=== PATIENT | male | born 1940 ===

== ENCOUNTER 2020-05-03 09:42 | Emergency (ER) | payer MEDICARE, SELFPAY ==
[2020-05-03 09:50] VITALS: BP 183/60; PULSE 69; RESP 22; TEMP 36.6; O2SAT 96; BMI 30.7
[2020-05-03 10:00] VITALS: BP 160/72; PULSE 69; RESP 14; TEMP 36.6; O2SAT 98
--- NOTE | 2020-05-03 10:00 | ECG_ITS ---
Test Reason : CHEST PAIN Blood Pressure : / mmHG Vent. Rate : 071 BPM Atrial Rate : 071 BPM P-R Int : 180 ms QRS Dur : 094 ms QT Int : 374 ms P-R-T Axes : 000 -33 006 degrees QTc Int : 406 ms Normal sinus rhythm with 1st degree A-V block Left axis deviation Nonspecific ST abnormality RSR' or QR pattern in V1 suggests right ventricular conduction delay Abnormal ECG When compared with ECG of 26-NOV-2016 14:24, Vent. rate has increased BY [address] now depressed in Anterior leads Referred By: Christy Ramos Electronically Signed By:MELIDA FOSTER MD
--- NOTE | 2020-05-03 10:00 | XR_ITS ---
EXAMINATION: XR CHEST CLINICAL INFORMATION: Chest pain COMPARISON: Chest radiographs 08/10/2017, 10/04/2006 TECHNIQUE: Portable upright AP view of the chest was obtained. FINDINGS: There is no pneumothorax, pleural reaction, or effusion. The lungs are clear and there is no airspace consolidation or definite groundglass opacity. There is a punctate calcified granuloma periphery left mid zone similar to prior exam. The heart is within normal size. The hilar and mediastinal contours and bony structures are stable. XR/XR chest 1V IMPRESSION: Unremarkable examination.
--- NOTE | 2020-05-03 10:00 | ED.CHESTPAIN ---
HPI - Chest Pain General Chief Complaint: Chest Pain Stated Complaint: chest pain Time Seen by Provider: 05/03/20 09:54 History of Present Illness HPI narrative: Patient is a 79-year-old male with a history of hypertension, hypercholesterolemia. Ex-smoker quit about 5 years ago. Presents today with having chest pain that is 1-2 second it is sharp. It comes on when he is watching TV. There is no radiation. There is no specific trigger. Patient claims today actually he did not have any pain. He did have pain for the last 4 days on and off. No coughing or congestion or upper respiratory symptoms no diaphoresis. Patient is from home. No risk stratification done in the past. No history of blood clots. Patient denies any shortness of breath or diaphoresis associated with the chest pain. Related Data Allergies Allergy/AdvReac Type Severity Reaction Status Date / Time shrimp Allergy Intermediate SWELLING Unverified 02/22/20 15:49 shellfish Allergy Unknown hives Uncoded 01/04/20 00:00 Review of Systems Review of Systems: Constitutional: No Weight loss, No Fever, No Chills, No Night Sweats, No Fatigue, No Malaise ENT/Mouth: No Hearing loss, No Ear Pain, No Nasal Congestion, No Sinus Pain, No Hoarseness, No sore throat, No Rhinorrhea, No Swallowing Difficulty Eyes: No Eye Pain, No Swelling, No Redness, No Foreign Body, No Discharge, No Vision Changes Cardiovascular: Positive Chest Pain, No SOB, No Dyspnea on Exertion, No Orthopnea, No Edema, No Palpitations Respiratory: No Cough, No Sputum, No Wheezing, No Smoke Exposure, No Dyspnea Gastrointestinal: No Nausea, No Vomiting, No Diarrhea, No Constipation, No abdominal Pain, No Hematochezia, No Melena Genitourinary: no irregular bleeding, No Dysuria, No Urinary Frequency, No Hematuria, No Urinary Incontinence, No Urgency, No Flank Pain, No Urinary Flow Changes, No Hesitancy Musculoskeletal: No joint pain, No Myalgias, No Joint Swelling Skin: No Skin Lesions, No rash Neuro: No Weakness, No Numbness, No Paresthesias, No Loss of Consciousness, No Dizziness, No Headache Psych: No Anxiety/Panic, No Depression, No SI/HI/AH/VH, No Social Issues, Heme/Lymph: No Bruising, No Bleeding,No Lymphadenopathy Endocrine: No Polyuria, No Polydipsia, No Temperature Intolerance [facility] Social History Social History Advance Directives: No Advance Directives Information Provided: Yes Physical Exam Vital Signs: Vital Signs: Last Vital Signs Temp 97.8 F 05/03/20 09:50 Pulse 69 05/03/20 09:50 Resp 22 H 05/03/20 09:50 BP 183/60 H 05/03/20 09:50 Pulse Ox 96 05/03/20 09:50 Body Mass Index 30.7 Appearance: Alert. Oriented X3. No acute distress. Eyes: Pupils equal, round and reactive to light. ENT: Pharynx normal. Neck: Normal inspection. Neck supple. No lymph nodes noted. No crepitus CVS: Normal heart rate and rhythm. Pulses normal. Normal S1 and S2 Respiratory: No respiratory distress. Breath sounds normal. No Wheezing. No rales Abdomen: Soft and nontender. No rigidity. No distention. good BS x4 Skin: Skin warm and dry. Normal skin color. Normal skin turgor. Extremities: No lower extremity edema. Neurovascular intact to all extremities. No Lacerations. No Rash Neuro: Oriented X 3. No motor deficit. No sensory deficit. Moving all extermities. No slurred speech MDM - Chest Pain MDM Narrative Medical decision making narrative: Patient's chest pain atypical in nature 1-2 seconds. Cardiac enzymes negative. Chest x-ray showed no focal infiltrate no pneumonia no pneumothorax. Will discharge patient home. Close follow-up on an outpatient basis. In stable condition. Patient pain atypical. Cardiac enzymes negative. EKG unchanged. A few risk factor. Patient's age is 79 heart score is less than 3. Lab Data Result diagrams: 05/03/20 10:18 05/03/20 10:18 Labs: Lab Results 05/03/20 05/03/20 05/03/20 Range/Units 10:18 10:18 10:18 WBC 5.7 (4.8-10.8) X10*3/uL RBC 3.69 L (4.60-5.80) X10*6/uL Hgb 12.0 L (14.0-18.0) g/dl Hct 36.0 L (42-52) % MCV 97.6 (80-98) fL MCH 32.5 (27.0-33.0) pg MCHC 33.3 (31.0-36.0) g/dl RDW 12.8 (11.0-16.0) % Plt Count 197 (160-400) X10*3/uL MPV 9.9 (9.4-12.4) fL Immature Gran % (Auto) 0.2 (0.0-0.4) % Neut % (Auto) 61.2 (45-73) % Lymph % (Auto) 24.1 (20-40) % [place] % (Auto) 11.2 H (2-11) % Eos % (Auto) 2.6 (0-4) % Baso % (Auto) 0.7 (0-2) % Lymph # (Auto) 1.4 (1.2-4.9) X10*3/uL [place] # (Auto) 0.6 (0.1-1.2) X10*3/uL Eos # (Auto) 0.2 (0.0-0.4) X10*3/uL Baso # (Auto) 0.0 (0.0-0.2) X10*3/uL Abs Immat Gran (auto) 0.01 (0.00-0.03) X10*3/uL Absolute Neuts (auto) 3.5 (2.0-8.3) X10*3/uL Absolute Nucleated RBC 0.000 (0.0-0.012) X10*3/uL Nucleated RBC % (auto) 0.0 (0.0-0.2) /100WBC Hold Blue Top SEE NOTE Sodium 137 (135-145) mmol/L Potassium 3.9 (3.3-5.1) mmol/l Chloride 106 (96-108) mmol/L Carbon Dioxide 22 (22-29) mmol/L Anion Gap 13 (12-20) BUN 25 H (9-16) mg/dL Creatinine 1.52 H (0.5-1.4) mg/dL Estim Creat Clear Calc 41.9 Estimated GFR 44 Random Glucose 138 H (60-115) mg/dL Calcium 8.7 (8.4-10.2) mg/dL Troponin I High Sens (<3.5-35.0) ng/L 05/03/ Range/Units 10:18 WBC (4.8-10.8) X10*3/uL RBC (4.60-5.80) X10*6/uL Hgb (14.0-18.0) g/dl Hct (42-52) % MCV (80-98) fL MCH (27.0-33.0) pg MCHC (31.0-36.0) g/dl RDW (11.0-16.0) % Plt Count (160-400) X10*3/uL MPV (9.4-12.4) fL Immature Gran % (Auto) (0.0-0.4) % Neut % (Auto) (45-73) % Lymph % (Auto) (20-40) % [place] % (Auto) (2-11) % Eos % (Auto) (0-4) % Baso % (Auto) (0-2) % Lymph # (Auto) (1.2-4.9) X10*3/uL [place] # (Auto) (0.1-1.2) X10*3/uL Eos # (Auto) (0.0-0.4) X10*3/uL Baso # (Auto) (0.0-0.2) X10*3/uL Abs Immat Gran (auto) (0.00-0.03) X10*3/uL Absolute Neuts (auto) (2.0-8.3) X10*3/uL Absolute Nucleated RBC (0.0-0.012) X10*3/uL Nucleated RBC % (auto) (0.0-0.2) /100WBC Hold Blue Top Sodium (135-145) mmol/L Potassium (3.3-5.1) mmol/l Chloride (96-108) mmol/L Carbon Dioxide (22-29) mmol/L Anion Gap (12-20) BUN (9-16) mg/dL Creatinine (0.5-1.4) mg/dL Estim Creat Clear Calc Estimated GFR Random Glucose (60-115) mg/dL Calcium (8.4-10.2) mg/dL Troponin I High Sens 6.2 (<3.5-35.0) ng/L ECG Data ECG #1: Interpretation: Sinus heart rate of 70 MN QRS QT within normal limits is no acute ST segment elevation noted. Discharge Plan Discharge Clinical Impression: Chest pain Patient Disposition: Home, Self-Care Instructions: Chest Pain (ED) Referrals: Piedad Lamas NP [Primary Care Provider] - 2 days
[2020-05-03] MEDS: Aspirin 81 MG TAB.CHEW 324 MG PO (10:06)
[2020-05-03 10:28] LABS: Basophils Percent Auto 0.7 % (0-2); Eosinophils Absolute Auto 0.2 X10*3/uL (0.0-0.4); Eosinophils Percent Auto 2.6 % (0-4); Imm Gran Abs Auto 0.01 X10*3/uL (0.00-0.03); Imm Gran Pct Auto 0.2 % (0.0-0.4); Lymphocytes Absolute Auto 1.4 X10*3/uL (1.2-4.9); Lymphocytes Percent Auto 24.1 % (20-40); Mean Corpuscular HGB Conc 33.3 g/dl (31.0-36.0); Mean Corpuscular Hemoglobin 32.5 pg (27.0-33.0); Mean Corpuscular Volume 97.6 fL (80-98); Mean Platelet Volume 9.9 fL (9.4-12.4); Monocytes Absolute Auto 0.6 X10*3/uL (0.1-1.2); Monocytes Percent Auto 11.2 % (2-11); Neutrophils Absolute Auto 3.5 X10*3/uL (2.0-8.3); Neutrophils Percent Auto 61.2 % (45-73); Platelet Count 197 X10*3/uL (160-400); Red Blood Count 3.69 X10*6/uL (4.60-5.80); Red Cell Distribution Width 12.8 % (11.0-16.0); White Blood Count 5.7 X10*3/uL (4.8-10.8)
[2020-05-03 10:29] LABS: MANUAL DIFF FLAG NO
[2020-05-03 10:49] LABS: Anion Gap 13 (12-20); Blood Urea Nitrogen 25 mg/dL (9-16); Calcium 8.7 mg/dL (8.4-10.2); Carbon Dioxide 22 mmol/L (22-29); Chloride 106 mmol/L (96-108); Creatinine Clr Calc Pharmacy 41.9; Estimated Glomerular Filt Rate 44; Glucose Random 138 mg/dL (60-115); Potassium 3.9 mmol/l (3.3-5.1); Sodium 137 mmol/L (135-145)
[2020-05-03 11:00] LABS: Troponin-I High Sensitivity 6.2 ng/L (<3.5-35.0)
== END 2020-05-03 11:27 | disposition home or self-care (01) ==
PROVIDERS: Emergency Provider Emergency Medicine Emergency Medical Services; PCP Nurse Practitioner Family
DX: R07.9 Chest pain, unspecified (principal); I10 Essential (primary) hypertension; Z87.891 Personal history of nicotine dependence
CPT/HCPCS: 36415; 71045; 80048; 84484; 85025; 93005; 99284

== ENCOUNTER → 2020-05-27 12:22 | Outpatient (BNVA) | payer MEDICARE, SELFPAY | PROVIDERS: PCP Nurse Practitioner Family; Visit Provider Internal Medicine | DX: I48.92 Unspecified atrial flutter (principal); R07.2 Precordial pain; R00.2 Palpitations; Z79.899 Other long term (current) drug therapy | CPT/HCPCS: 93005; 99202 ==

== ENCOUNTER → 2020-06-19 13:01 | Outpatient (REF) | payer MEDICARE, SELFPAY ==
--- NOTE | 2020-06-19 13:04 | ECG_ITS ---
Hook-up date: 2020-06-19 13:53:00 Duration: 24:54:00 Test Indications: UNSPEC. ATRIAL FLUTTER Medications: 07862 QRS complexes 4 Ventricular ectopics which represent <1 % of total QRS comp. * Supraventricular ectopics which represent % of total QRS comp. * Paced QRS complexs which represent % of total QRS comp. VENTRICULAR ECTOPY 4 Isolated 0 Bigeminal Cycles 0 Couplets 0 Runs 0 Beats in Runs * Beats LONGEST at * BPM at :: -- * Beats FASTEST at * BPM at :: -- SUPRAVENTRICULAR ECTOPY * Isolated * Couplets * Runs * Beats in Runs * Beats LONGEST at * BPM at :: -- * Beats FASTEST at * BPM at :: -- HEART RATES 32 MIN at 06:01:39 2020-06-20 62 AVG 109 MAX at 16:18:16 2020-06-19 LONGEST RR 2.4880 secs at 05:37:38 2020-06-20 S-T LEVELS Channel 1 - 128 mm at 13:53:00 2020-06-19 - 128 mm at 13:53:00 2020-06-19 Channel 2 - 128 mm at 13:53:00 2020-06-19 - 128 mm at 13:53:00 2020-06-19 Channel 3 - 128 mm at 03:31:21 -- - 128 mm at 03:31:21 Underlying rhythm is atrial flutter; Average ventricular rate 62/min; range 32-109/min; About 35% of the time, ventricular rate <60/min; Chest pain noted in patient diary associated with underlying rhythm of atrial flutter. Referred By: Keily Green Overread By: KEILY GREEN
--- NOTE | 2020-06-19 13:04 | CA_ITS ---
Transthoracic Echocardiogram Patient (Last, First, Middle): Ras Pavon, Gender: Male Date of : 1940 Age: 79 Procedure Date: 06/19/2020 Procedure Type: Transthoracic Echocardiogram Location: OP Height: 167.64 cm Weight: 89.81 kg BSA: 1.99 m2 Heart Rate: bpm BP: 124 / 80 mmHg Food And Beverage Director: Referring MD: Richie Menezes MD Construction Quality Control Manager: Satnam Guevara MD Symptoms: I48.92 - Unspecified atrial flutter Study Quality: Fair ECG Rhythm: Atrial flutter Conclusions: - 1. Normal LV systolic function 2. Mild biatrial enlargement, right greater than left 3. Normal cardiac valvular Doppler 4. Normal RV systolic pressure 5. No pericardial effusion Findings Left Ventricle Normal left ventricular size, thickness, and systolic function. The visually estimated ejection fraction is between 55-60%. Diastolic function is indeterminate on the basis of available data. Right Ventricle Normal right ventricular cavity size and systolic function. Atria The left atrium is mildly dilated. There is no evidence of interatrial shunt. The right atrium is mildly dilated. Aortic Valve Normal aortic valve structure and function. There is no aortic valve stenosis. There is no aortic valve regurgitation. Mitral Valve Normal mitral valve structure and function. There is trace mitral valve regurgitation. There is no mitral valve stenosis. Pulmonic Valve The pulmonic valve was not well visualized. Tricuspid Valve Likely normal tricuspid valve structure and function. There is trace tricuspid valve regurgitation. The right ventricular systolic pressure is normal. The right ventricular systolic pressure is 23 mmHg. Normal right atrial pressure. There is no evidence of pulmonary hypertension. Great Vessels All visible segments of the aorta are normal in size. The pulmonary artery was not well visualized. Venous The inferior vena cava is normal in size and collapses greater than 50% with inspiration. Pericardium/Pleural There is no evidence of pericardial effusion. Prior Study Comparison No prior study available for comparison. Measurements 2D Linear Measurements IVSd: 1.09 0.6-0.9/0.6-1.0 cm LVIDd: 5.09 3.9-5.3/4.2-5.9 cm LVIDd Index: 2.56 2.4-3.2/2.2-3.1 cm/m2 LVIDs: 3.17 2.0-3.6 cm LVPWd: 1.04 0.7-1.1 cm Ao Root: 3.20 2.1-3.5 cm LA Diam: 4.10 2.7-3.8/3.0-4.0 cm LAIDs Index: 2.06 1.5-2.3 cm/m2 LV Mass: 254.27 67-162/88-224 g LV Mass Index: 127.78 43-95/49-115 g/m2 LVOT Diam: 2.00 3.0+(-)1.3 cm Mitral Valve MV Pk E: 1.17 MV Decel Time: 253.00 E'Lateral: 16.60 E'Medial: 10.70 E/E' Med: 10.90 E/E' Lat: 7.00 PHT: 74.00 MVA PHT: 2.97 Decel [place]: 4.61 Aortic Valve AoV Pk Hiram: 1.72 AoV Mn Hiram: 1.07 AoV VTI: 0.37 AoV Pk Grad: 12.00 Aov Mn Grad: 6.00 TOMÁS Cont.VTI: 1.97 LVOT LVOT Pk Hiram: 0.94 LVOT Mn Hiram: 0.66 LVOT VTI: 0.24 LVOT Pk Grad: 4.00 LVOT Mn Grad: 2.00 LVOT Diam: 2.00 LVOT Area: 3.14 Diastolic Function MV Pk E: 1.17 E'Medial: 10.70 E/E' Med: 10.90 E' Laterial: 16.60 E/E' Lat: 7.00 Tricuspid Valve TR Pk Hiram: 2.24 TR Pk Grad: 20.00 RA Press: 3.00 RVSP: 23.00 Great Vessels Aorta Ao Root-2D: 3.20 2.0-3.7 cm Ao Asc: 3.40 2.1-3.4 cm Pulmonary Valve PV Pk Hiram: 0.98 Peak PV Grad: 4.00 Updated in Other Vendor System with Status of Final Satnam Guevara MD electronically signed on 06/20/2020 9:01:29 AM with status of Final
== END ==
LOC: HO.CARD 13:01
PROVIDERS: Visit Provider Internal Medicine
DX: I48.92 Unspecified atrial flutter (principal)
CPT/HCPCS: 93225; 93226; 93306

== ENCOUNTER → 2020-07-10 12:59 | Outpatient (BNVA) | payer MEDICARE, SELFPAY | PROVIDERS: PCP Nurse Practitioner Family; Visit Provider Internal Medicine | DX: I48.3 Typical atrial flutter (principal); R07.2 Precordial pain; R00.2 Palpitations; D63.8 Anemia in other chronic diseases classified elsewhere; Z51.81 Encounter for therapeutic drug level monitoring; Z79.01 Long term (current) use of anticoagulants | CPT/HCPCS: 99212 ==

== ENCOUNTER 2020-07-12 07:50 | Outpatient (REF) | payer MEDICARE, SELFPAY ==
--- NOTE | ~2020-07-12 | CT_ITS ---
EXAMINATION: CT CHEST WITHOUT CONTRAST CLINICAL INFORMATION: Pulmonary nodules. Followup. COMPARISON: CT chest 01/06/2019 TECHNIQUE: Multidetector volumetric CT imaging of the chest was done. Axial MIP volume rendering provided. Sagittal and coronal reformatted images were obtained. This CT examination was performed using dose optimization techniques as appropriate, variously including the following: *Automated exposure control *Adjustment of mA and/or kV according to patient size (this includes techniques or standardized protocols for targeted exams where dose is matched to indication/reason for exam; i.e. extremities or head) *Use of iterative reconstruction technique DLP: 199 mGy-cm FINDINGS: ELECTRONIC SCIENCE TEACHER: Unremarkable chest. LUNGS: There is a 2 mm nodule left upper lobe axial image 127/6, and a 2 mm nodule left upper lobe subpleural base axial image 136/6, stable. There is a 3 mm nodule left upper lobe axial image 25/4. There is a 5 mm calcified nodule left upper lobe axial image 239/6. There is a 2 mm nodule right upper lobe axial image 252/6. These nodules are unchanged. No additional nodules seen. There are minimal atelectatic changes in both lung bases. MEDIASTINUM: The thyroid lobes are symmetrical and normal. The central trachea and bronchi are widely patent. The heart size and great vessels are normal caliber. No abnormal size mediastinal or hilar lymph nodes seen. There is no pericardial effusion. PLEURA: There is no pleural effusion. No pleural mass or thickening. AXILLA: Small shotty lymph nodes are seen in bilateral axilla. The largest lymph node measures 7 mm right axilla axial image 16/3. UPPER ABDOMEN: The visualized liver, spleen and pancreas are unremarkable. No radiopaque gallstones seen. There is no perinephric fat stranding. There are bilateral renal cysts. OSSEOUS STRUCTURES: There is moderate ventral spondylosis mid and lower lumbar spine. There are endplate Schmorl's node and sclerosis throughout mid and lower dorsal spine. No fracture or lytic process seen. CT/CT chest wo con IMPRESSION: Multiple bilateral pulmonary nodules essentially stable compared to 01/06/2019. Bibasilar atelectasis.
== END 2020-07-12 07:51 | disposition home or self-care (01) ==
LOC: HO.CT 07:50
PROVIDERS: Visit Provider Internal Medicine Medical Oncology
DX: R91.8 Other nonspecific abnormal finding of lung field (principal)
CPT/HCPCS: 71250

== ENCOUNTER 2020-08-01 12:42 | Outpatient (REF) | payer MEDICARE, SELFPAY ==
--- NOTE | ~2020-08-01 | XR_ITS ---
EXAMINATION: XR THORACIC SPINE CLINICAL INFORMATION: Right thoracic pain. COMPARISON: Chest radiographs 08/01/2020, CT chest 07/12/2020 and 01/06/2019 TECHNIQUE: 3 views of the thoracic spine were obtained. FINDINGS: There is normal thoracic segmentation with 12 rib-bearing thoracic vertebrae of normal height and normal thoracic kyphosis. There is borderline curvature mid to lower thoracic spine on frontal view. There is no interval thoracic vertebral compression, spondylolisthesis, destructive process, or paraspinal soft tissue swelling. Again, there are multilevel degenerative changes mid to lower thoracic spine with disc narrowing and mild endplate sclerosis and bridging anterior and right lateral osteophytes. There are some inferior endplate Schmorl's nodes lower thoracic spine better appreciated on the prior CT studies. Again, there is scattered ossification of the supraspinous ligament. XR/XR thoracic spine 3V IMPRESSION: 1. 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 2. Old Schmorl's nodes inferior endplates several thoracic vertebrae and scattered ossification supraspinous ligament. 3. No acute abnormality.
--- NOTE | ~2020-08-01 | XR_ITS ---
EXAMINATION: XR CHEST CLINICAL INFORMATION: Right-sided pain COMPARISON: Thoracic spine 08/01/2020, chest radiographs 05/03/2020, 08/10/2017; CT chest noncontrast 07/12/2020 TECHNIQUE: 2 views of the chest were obtained. FINDINGS: The lungs are clear. The heart is upper limits of normal size. The vascularity is normal. There is no pneumothorax or pleural reaction. No airspace consolidation or groundglass opacity or effusion. The vascularity is normal. The hilar and mediastinal contours are normal. There are multilevel degenerative changes mid to lower thoracic spine. XR/XR chest 2V IMPRESSION: No acute intrathoracic disease.
== END 2020-08-01 12:43 | disposition home or self-care (01) ==
LOC: HO.XRAY 12:42
PROVIDERS: PCP Nurse Practitioner Family; Visit Provider Nurse Practitioner Family
DX: R07.81 Pleurodynia (principal)
CPT/HCPCS: 71046; 72072

== ENCOUNTER 2020-09-03 11:45 | Emergency (ER) | payer MEDICARE, SELFPAY ==
--- NOTE | 2020-09-03 | ECG_ITS ---
Test Reason : ABNORMAL EKGS Blood Pressure : / mmHG Vent. Rate : 068 BPM Atrial Rate : 272 BPM P-R Int : 000 ms QRS Dur : 092 ms QT Int : 440 ms P-R-T Axes : -35 -27 015 degrees QTc Int : 467 ms Baseline artifact NSR with first degree AV block Nonspecific ST abnormality Abnormal ECG When compared with ECG of 03-MAY-2020 09:46, No significant changes seen Referred By: Generic ED Physician Electronically Signed By:Dov Ruiz
--- NOTE | ~2020-09-03 | XR_ITS ---
EXAMINATION: XR SHOULDER, RIGHT CLINICAL INFORMATION: Pain COMPARISON: Previous x-ray October 2018 TECHNIQUE: AP external rotation, Grashey, scapular Y, and axillary views of the right shoulder. FINDINGS: Bone alignment is normal. No fracture or dislocation is seen. The glenohumeral joint is normal. There is arthritis at the acromioclavicular joint. Soft tissues are unremarkable. 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
[2020-09-03 11:53] VITALS: BP 134/55; PULSE 68; RESP 16; TEMP 36.6; O2SAT 98; BMI 30.7
--- NOTE | 2020-09-03 13:58 | ED.GENADULT ---
HPI - General Adult General Chief complaint: Arrhythmia/Palpitations Stated complaint: R ARM PAIN,? IRREGULAR HB PER URGENT CARE Time Seen by Provider: 09/03/20 12:06 Source: patient Mode of arrival: ambulatory Limitations: no limitations History of Present Illness HPI narrative: Patient comes emergency room complaining of right shoulder pain. Patient states it has been going on for 8 months now. Patient states that back in December he got his flu shot in the right arm, he noticed pain then. Patient states it has been hurting constantly since December of 2019. Patient has no recent history of trauma. However, patient states it hurts more than usual. Patient states that he is able to move his arm in all directions, however he noticed recently that the right shoulder started hurting more when he is driving. Patient went today to urgent care for his right shoulder pain, however when he arrived, they did an EKG which showed atrial flutter. Patient mentioned to them that he is known to be an atrial flutter and is on diltiazem and Eliquis. Patient denies any palpitations, no chest pain, no shortness of breath, states he feels as usual. They asked the patient to come to the emergency room. Related Data Home Medications Medication Instructions Recorded Confirmed acetaminophen 500 mg tablet 500 mg PO Q4-6H 05/27/20 07/10/20 diltiazem HCl 180 mg 360 mg PO DAILY cap 05/27/20 07/10/20 capsule,extended release 24 hr epinephrine 0.3 mg/0.3 mL 0.3 mg IM ONCE 05/27/20 07/10/20 injection, auto-injector ergocalciferol (vitamin D2) 1,250 1,250 mcg PO QWEEK 05/27/20 07/10/20 mcg (50,000 unit) capsule ferrous sulfate 325 mg (65 mg 325 mg PO DAILY 05/27/20 07/10/20 iron) tablet,delayed release flunisolide 25 mcg (0.025 %) nasal 2 spray INTRANASAL BID 05/27/20 07/10/20 spray lisinopril 20 mg tablet 20 mg PO DAILY 05/27/20 07/10/20 omeprazole 20 mg capsule,delayed 20 mg PO DAILY 05/27/20 07/10/20 release pravastatin 40 mg tablet 40 mg PO BEDTIME 05/27/20 07/10/20 tamsulosin 0.4 mg capsule 0.4 mg PO DAILY 05/27/20 07/10/20 terazosin 5 mg capsule 5 mg PO BEDTIME 05/27/20 07/10/20 Previous Rx's Medication Instructions Recorded apixaban 5 mg tablet 5 mg PO BID #60 tab 06/10/20 Allergies Allergy/AdvReac Type Severity Reaction Status Date / Time shrimp Allergy Intermediate SWELLING Verified 09/03/20 12:06 Review of Systems Review of Systems: Constitutional : No Weight loss, No Fever, No Chills, No Night Sweats, No Fatigue, No Malaise ENT/Mouth : No Hearing loss, No Ear Pain, No Nasal Congestion, No Sinus Pain, No Hoarseness, No sore throat, No Rhinorrhea, No Swallowing Difficulty Eyes: No Eye Pain, No Swelling, No Redness, No Foreign Body, No Discharge, No Vision Changes Cardiovascular : No Chest Pain, No SOB, No Dyspnea on Exertion, No Orthopnea, No Edema, No Palpitations Respiratory : No Cough, No Sputum, No Wheezing, No Smoke Exposure, No Dyspnea Gastrointestinal : No Nausea, No Vomiting, No Diarrhea, No Constipation, No abdominal Pain, No Hematochezia, No Melena Genitourinary : no irregular bleeding, No Dysuria, No Urinary Frequency, No Hematuria, No Urinary Incontinence, No Urgency, No Flank Pain, No Urinary Flow Changes, No Hesitancy Musculoskeletal : Complaining of acute on chronic right shoulder pain, No Myalgias, No Joint Swelling Skin : No Skin Lesions, No rash Neuro : No Weakness, No Numbness, No Paresthesias, No Loss of Consciousness, No Dizziness, No Headache Psych : No Anxiety/Panic, No Depression, No SI/HI/AH/VH, No Social Issues, Heme/Lymph: No Bruising, No Bleeding,No Lymphadenopathy Endocrine : No Polyuria, No Polydipsia, No Temperature Intolerance [facility] Past Medical History Medical History Atrial flutter BPH (benign prostatic hyperplasia) Chronic kidney disease, stage 3 Depression Essential hypertension GERD (gastroesophageal reflux disease) Other and unspecified hyperlipidemia Pre-diabetes Pulmonary nodules Vitamin D deficiency Surgical History History of umbilical hernia repair Family History Family History (Updated 05/27/20 @ 12:54 by KENDELL Veliz) Father No problems noted. Mother No problems noted. Social History Social History (Updated 05/27/20 @ 12:53 by KENDELL Veliz) Smoking Status: Never smoker Advance Directives: Yes Advance Directives on File: Yes Advance Directives Date on File: 05/03/20 Physical Exam Vital Signs: Vital Signs: Last Vital Signs Temp 97.8 F 09/03/20 11:53 Pulse 72 09/03/20 14:56 Resp 18 09/03/20 14:56 BP 148/63 H 09/03/20 14:56 Pulse Ox 95 09/03/20 14:56 Body Mass Index 30.7 Appearance: Alert. Oriented X3. No acute distress. Eyes: Pupils equal, round and reactive to light. ENT: Pharynx normal. Neck: Normal inspection. Neck supple. No lymph nodes noted. No crepitus CVS: Normal heart rate and rhythm. Pulses normal. Normal S1 and S2 Respiratory: No respiratory distress. Breath sounds normal. No Wheezing. No rales Abdomen: Soft and nontender. No rigidity. No distention. good BS x4 Skin: Skin warm and dry. Normal skin color. Normal skin turgor. Extremities: No lower extremity edema. Patient is able to adduct and abduct with full range of motion both upper extremities with minimal discomfort, moderate pain to palpation over the deltoid area, mild discomfort to deep palpation over the shoulder anteriorly and laterally, Neuro: Oriented X 3. No motor deficit. No sensory deficit. Moving all extermities. No slurred speech. Course Course Course Narrative: Patient has acute on chronic right shoulder pain. Patient's physical exam is nearly normal other than mild pain to palpation. No erythema, no joint deformity , no fever. Septic joint is not suspected at this time. I discussed the x-ray with the patient, no acute findings. However, I discussed with the patient that he may need an MRI, which she will discuss with his primary care physician. Patient states he has been taking aspirin for the pain, patient will now try Tylenol . Medical Decision Making ECG Data Attestation: I personally reviewed and interpreted this ECG as follows: (Atrial flutter, heart rate 68, no ST segment depressions or elevations, no EKG changes from 05/03/2020) Discharge Plan Discharge Clinical Impression: Chronic pain in right shoulder Patient Disposition: Home, Self-Care Instructions: Arthralgia (ED), Shoulder Pain (ED) Additional Instructions: Please follow-up with your primary care physician. It is possible that you may need an MRI. Please follow-up with your primary care physician tomorrow. If you have any worsening or new symptoms, please return to the emergency room or call 911 Prescriptions: No Action Eliquis 5 mg tablet 5 mg PO BID Qty: 60 RF: 5 diltiazem HCl 180 mg capsule,extended release 24hr 360 mg PO DAILY RF: 0 pravastatin 40 mg tablet 40 mg PO BEDTIME RF: 0 lisinopril 20 mg tablet 20 mg PO DAILY RF: 0 omeprazole 20 mg capsule,delayed release(DR/EC) 20 mg PO DAILY RF: 0 terazosin 5 mg capsule 5 mg PO BEDTIME RF: 0 tamsulosin 0.4 mg capsule 0.4 mg PO DAILY RF: 0 ergocalciferol (vitamin D2) 1,250 mcg (50,000 unit) capsule 1,250 mcg PO QWEEK RF: 0 acetaminophen 500 mg tablet 500 mg PO Q4-6H RF: 0 ferrous sulfate 325 mg (65 mg iron) tablet,delayed release (DR/EC) 325 mg PO DAILY RF: 0 flunisolide 25 mcg (0.025 %) spray,non-aerosol 2 spray intranasal BID RF: 0 epinephrine 0.3 mg/0.3 mL auto-injector 0.3 mg IM ONCE RF: 0 Interventions: ED Discharge Assessment Last Done: 09/03/20 16:06 Discharge Date/Time: 09/03/20 16:07
[2020-09-03 14:56] VITALS: BP 148/63; PULSE 72; RESP 18; O2SAT 95
== END 2020-09-03 16:07 | disposition home or self-care (01) ==
PROVIDERS: Emergency Provider Emergency Medicine
DX: M79.601 Pain in right arm (principal); I12.9 Hypertensive chronic kidney disease with stage 1 through stage 4 chronic kidney disease, or unspecified chronic kidney disease; N18.30 Chronic kidney disease, stage 3 unspecified; Z79.899 Other long term (current) drug therapy
CPT/HCPCS: 73030; 93005; 99283

== ENCOUNTER → 2020-10-31 08:34 | Outpatient (BNVA) | payer MEDICARE, SELFPAY | PROVIDERS: Visit Provider Physician Assistant | DX: M19.019 Primary osteoarthritis, unspecified shoulder (principal) | CPT/HCPCS: 99202 ==

== ENCOUNTER → 2020-11-20 12:59 | Outpatient (BNVA) | payer MEDICARE, SELFPAY | PROVIDERS: PCP Nurse Practitioner Family; Visit Provider Physician Assistant | DX: M19.011 Primary osteoarthritis, right shoulder (principal) | CPT/HCPCS: 20610; 99212; J1040 ==

== ENCOUNTER → 2021-01-06 12:25 | Outpatient (BNVA) | payer MEDICARE, SELFPAY | PROVIDERS: Visit Provider Orthopaedic Surgery | DX: M75.101 Unspecified rotator cuff tear or rupture of right shoulder, not specified as traumatic (principal); I48.92 Unspecified atrial flutter; I12.9 Hypertensive chronic kidney disease with stage 1 through stage 4 chronic kidney disease, or unspecified chronic kidney disease; N18.30 Chronic kidney disease, stage 3 unspecified; R73.03 Prediabetes; E55.9 Vitamin D deficiency, unspecified; Z91.013 Allergy to seafood | CPT/HCPCS: 20610; 99212; J1100 ==

== ENCOUNTER 2021-01-08 09:40 | Outpatient (REF) | payer MEDICARE, SELFPAY | END 2021-01-08 09:41 | disposition home or self-care (01) | LOC: HO.MRI 09:40 | PROVIDERS: PCP Nurse Practitioner Family; Visit Provider Nurse Practitioner Family | DX: Z13.89 Encounter for screening for other disorder (principal) ==

== ENCOUNTER → 2021-01-15 13:01 | Outpatient (BNVA) | payer MEDICARE, SELFPAY | PROVIDERS: PCP Nurse Practitioner Family; Visit Provider Internal Medicine | DX: I48.3 Typical atrial flutter (principal); Z51.81 Encounter for therapeutic drug level monitoring; Z79.01 Long term (current) use of anticoagulants | CPT/HCPCS: 99212 ==

== ENCOUNTER 2021-05-22 09:49 | Outpatient (REF) | payer MEDICARE, SELFPAY ==
--- NOTE | ~2021-05-22 | XR_ITS ---
EXAMINATION: XR SHOULDER, RIGHT CLINICAL INFORMATION: Right shoulder pain COMPARISON: 10/18/2018 and 09/03/2020. TECHNIQUE: AP external rotation, Grashey, scapular Y, and axillary views of the right shoulder. FINDINGS: As on the prior examination, there are degenerative changes of the acromioclavicular joint. In addition, the humeral head appears somewhat inhomogeneous and mottled, though no cortical destruction is evident. There is no evidence of fracture or dislocation. There are calcifications superior to the humeral head, presumably on the basis of calcific tendinosis. XR/XR shoulder RT min 2V IMPRESSION: 1. Acromioclavicular hypertrophic and proliferative changes, as on prior studies. 2. Mottled appearance to the humeral head, nonspecific. However, marrow infiltrative processes such as metastatic disease or myeloma could have this appearance. Suggest correlation with medical history and if warranted, this could be better assessed by a dedicated shoulder MRI or perhaps bone scan. 3. Calcific tendinosis
== END 2021-05-22 09:50 | disposition home or self-care (01) ==
LOC: HO.XRAY 09:49
PROVIDERS: Visit Provider General Practice
DX: M25.511 Pain in right shoulder (principal)
CPT/HCPCS: 73030

== ENCOUNTER 2021-06-25 07:43 | Outpatient (REF) | payer MEDICARE, SELFPAY | END 2021-06-25 07:44 | disposition home or self-care (01) | LOC: HO.MRI 07:43 | PROVIDERS: PCP General Practice; Visit Provider Emergency Medicine | DX: Z13.89 Encounter for screening for other disorder (principal) ==

== ENCOUNTER 2021-07-21 14:22 | Outpatient (REF) | payer MEDICARE, SELFPAY ==
--- NOTE | ~2021-07-21 | XR_ITS ---
EXAMINATION: XR ANKLE, LEFT CLINICAL INFORMATION: Pain. COMPARISON: Previous x-ray July 2014. TECHNIQUE: AP, lateral, and mortise views of the left ankle. FINDINGS: There is tibiotalar and subtalar fusion. There is an intramedullary vanessa seen in the distal tibia, talus and calcaneus. There are 2 proximal screws. There are 2 distal lateral screws in the talus and calcaneus. There is a third distal screw in the calcaneus oriented posteriorly to anteriorly. There has been resection of the distal fibula or lateral malleolus. There is dystrophic soft tissue calcification seen in this region. There is evidence of old trauma to the ankle. No acute fracture, dislocation or x-ray evidence of hardware loosening is seen. There is is increased sclerosis and osteophyte formation of the medial malleolus. This is similar to 2015 exam. There is some cortical thickening adjacent to the proximal screws in the tibial shaft. This does not appear appreciably changed. There are calcaneal spurs. There is diffuse soft tissue swelling about the ankle. XR/XR ankle LT min 3V IMPRESSION: Arthrodesis of the tibiotalar and posterior talar calcaneal joints. Postsurgical changes and orthopedic hardware not appreciably changed from 2015. Diffuse soft tissue swelling that appears increased.
== END 2021-07-21 14:23 | disposition home or self-care (01) ==
LOC: HO.HOSX 14:22
PROVIDERS: PCP General Practice; Visit Provider Orthopaedic Surgery
DX: Z98.1 Arthrodesis status (principal)
CPT/HCPCS: 73610; 99212

== ENCOUNTER 2021-08-05 08:44 | Outpatient (REF) | payer MEDICARE, SELFPAY ==
--- NOTE | ~2021-08-05 | XR_ITS ---
EXAMINATION: XR SKELETAL SURVEY CLINICAL INFORMATION: Mottled appearance right humeral neck. Question multiple myeloma. COMPARISON: None TECHNIQUE: Whole body bone survey was performed. FINDINGS: SKULL: Single lateral view of the skull reveals small lucencies within the frontal bone. There is a moderate size occipital spurring. CERVICAL SPINE: There is mild straightening of cervical lordosis. The vertebral heights are normal. There is grade 1 anterolisthesis C4 over C5. The rest of the vertebral alignment is normal. There is loss of C3-C4, C4-C5, C5-C6 and C6-C7 disc heights with mild ventral spondylosis. No lytic or sclerotic process seen. DORSAL SPINE: There is normal thoracic kyphosis. The vertebral heights and alignment is normal. There is loss of disc height in mid and lower dorsal spine. There is moderate spondylosis throughout dorsal spine. No acute fracture, lytic or sclerotic process seen. The paravertebral soft tissues are normal. LUMBAR SPINE: There is normal lumbar lordosis with minimal levoscoliosis. There are moderate bridging osteophytes throughout the dorsal spine. No lytic or sclerotic process seen. AP pelvis: There are multiple lucencies seen throughout the femoral head and neck region lucency also visualized in the pelvic bones especially in the ischium and the pubic regions. The SI joints are symmetrical. The sacrum appears unremarkable. BILATERAL HUMERI: There are small lucencies seen in both humeral heads and neck region. The rest of the humerus is unremarkable. BILATERAL RADIUS AND ULNA: There is no sclerotic or lytic lesion seen. The bony cortex is intact. BILATERAL FEMUR: Unremarkable. BILATERAL TIBIA AND FIBULA: The right tibia and fibula is unremarkable. There is a left intramedullary tibial vanessa and screws extending through the talus for fusion. There is hypertrophic callus formation at the ankle joint. No lucency seen. XR/XR bone survey IMPRESSION: Bilateral proximal humerus and bilateral frontal lucencies suspicious for myeloma. Recommend CT bone marrow biopsy.
== END 2021-08-05 08:45 | disposition home or self-care (01) ==
LOC: HO.XRAY 08:44
PROVIDERS: Visit Provider Internal Medicine Medical Oncology
DX: C90.00 Multiple myeloma not having achieved remission (principal)
CPT/HCPCS: 77075

== ENCOUNTER 2021-08-18 10:39 | Day surgery (SDC) | payer MEDICARE, SELFPAY ==
[2021-08-18 11:35] VITALS: BMI 33.9
--- NOTE | 2021-08-18 11:37 | HO.ANESPROP2 ---
HPI - Anesthesia Eval Consult details Narrative: 80 years old male for Bone marrow biopsy h/o palpitations and chest pain on anti coagulation As per documentation , the chest pain symptoms correlated with atrial flutter , follows up with [facility] . apixiban was held for the procedure As per patient had a fall in garage few days ago and hit the right hip . Denies any pain , no LOC and no head trauma . Not tender to palpation on right hip . Inspected and discussed with Dr Mireles . [facility] Active Problems Active Problems: All Active Problems (Updated 07/15/21 @ 10:06 by Paras Mireles MD) History of ankle fusion (Acute) Painful arc syndrome of right shoulder (Acute) Acromioclavicular joint arthritis (Acute) Atrial flutter (Acute) Precordial chest pain (Acute) Heart palpitations (Acute) Anemia, chronic disease (Acute) Pulmonary nodule (Acute) Anticoagulation management encounter (Acute) Past Medical History Medical History Atrial flutter BPH (benign prostatic hyperplasia) Chronic kidney disease, stage 3 Depression Essential hypertension GERD (gastroesophageal reflux disease) Other and unspecified hyperlipidemia Pre-diabetes Pulmonary nodules Vitamin D deficiency Family History Family History Father No problems noted. Mother No problems noted. Sister Cancer Family history of problems with anesthesia: No Surgical History Surgical History History of umbilical hernia repair History of Problems with Anesthesia: No Social History Social History Household Members: None Housing: Apartment Are you a primary child day care teacher to a significant other at home: No Do you presently have visiting nurse or other home services: No Alcohol intake: former Year quit: 2000 Patient Tobacco Use Status: Former Tobacco user Quit Date: 2015 Tobacco use type: Cigarette Years Smoked: 40 +/- Second Hand Smoke Exposure: No Use of substances other than those prescribed or required for medical reasons: No Advance Directives Date on File: 05/03/20 Current occupational status: retired 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 Meds Allergies Allergy/AdvReac Type Severity Reaction Status Date / Time shrimp Allergy Intermediate SWELLING Verified 07/21/21 14:28 Home Medications Medication Instructions Recorded Confirmed Last Taken Type acetaminophen 500 mg tablet 500 mg PO Q4-6H 05/27/20 08/05/21 Unknown History diltiazem HCl 180 mg 360 mg PO DAILY cap 05/27/20 08/05/21 Unknown History capsule,extended release 24 hr epinephrine 0.3 mg/0.3 mL 0.3 mg IM ONCE 05/27/20 08/05/21 Unknown History injection, auto-injector ergocalciferol (vitamin D2) 1,250 1,250 mcg PO QWEEK 05/27/20 08/05/21 Unknown History mcg (50,000 unit) capsule ferrous sulfate 325 mg (65 mg 325 mg PO DAILY 05/27/20 08/05/21 Unknown History iron) tablet,delayed release flunisolide 25 mcg (0.025 %) nasal 2 spray INTRANASAL BID 05/27/20 08/05/21 Unknown History spray lisinopril 20 mg tablet 20 mg PO DAILY 05/27/20 08/05/21 Unknown History omeprazole 20 mg capsule,delayed 20 mg PO DAILY 05/27/20 08/05/21 Unknown History release pravastatin 40 mg tablet 40 mg PO BEDTIME 05/27/20 08/05/21 Unknown History terazosin 5 mg capsule 5 mg PO BEDTIME 05/27/20 08/05/21 Unknown History celecoxib 200 mg capsule (Celebrex) 200 mg PO BID 07/15/21 08/05/21 Unknown History sennosides 8.6 mg tablet (senna) 1 - 2 tab PO QPM 07/15/21 08/05/21 Unknown History Exam Exam Date and Time: August 18, 2021 1137 Airway Mallampati Class: III Neck ROM: Full Denture: Upper and Lower Loose/Missing/Broken Teeth: Yes Heart: irregular Lungs: bl breath sounds Assessment and Plan Assessment Anesthesia Assessment: Anesthesia Plan Discussed and Chart Reviewed Final Anesthetic Review Family History of Problems with Anesthesia: No History of Problems with Anesthesia: No NPO: Yes ASA Class: III Final Preanesthetic Review: Meds/Allgs Chart Reviewed, Consent Obtained/Reviewed and Anes Risks/Benef Reviewed Patient Risk: High Procedure Risk: Intermediate Anesthetic Plan Anesthetic Plan: MAC: Disposition: Standard PACU
[2021-08-18 11:45] VITALS: BP 162/68; PULSE 65; RESP 16; TEMP 36.3; O2SAT 97
[2021-08-18 13:15] VITALS: BP 121/59; PULSE 57; RESP 17; TEMP 36.6; O2SAT 98
[2021-08-18 13:30] VITALS: BP 121/61; PULSE 51; RESP 16; TEMP 36.6; O2SAT 96
[2021-08-18 14:44] LABS: Bone Marrow SEE SEPARATE REPORT
--- NOTE | 2021-08-25 15:46 | PM.HEMONCBM ---
Bone Marrow Aspiration - Bone Marrow Aspiration Procedure:: *Service Date: [08/18/21] Pre Op Diagnosis:: Bone lesions. Post Op Diagnosis:: Same. Surgeon:: Carmencita Trivedi. Anesthesia:: MAC. Consent:: Informed consent obtained from the patient for the procedure. Pros and cons of biopsy explained. The patient was willing to proceed with the procedure under local anesthesia. Procedure in Detail:: *Service Date: 08/18/21. *Procedure: BONE MARROW ASPIRATION AND BIOPSY. *Pre Op Dx: BONE LESIONS. *Post Op Dx: SAME. *Surgeon: CARMENCITA TRIVEDI. The patient was positioned prone. The left posterior superior iliac spine prepped and draped. Patient was anesthetized under MAC. Under aseptic precautions, 5 ml of 1% lidocaine used for local anesthesia. Bone marrow aspirate was taken. With the Jamshidi needle, a core biopsy obtained without any complications. Specimens were sent for: Izquierdo stain, flow cytometry and cytogenetics. Biopsy was sent for histology. The patient tolerated the procedure well. Bandage was applied and patient was positioned on his back for 10 to 15 minutes after the procedure. The patient was advised to call us if develops any pain or swelling at the surgical site. Follow up in 2 weeks.
== END 2021-08-18 14:45 | disposition home or self-care (01) ==
PROVIDERS: Visit Provider Internal Medicine Medical Oncology
PROC: (CPT 38221; principal; 2021-08-18 12:20)
DX: M89.9 Disorder of bone, unspecified (principal); M75.81 Other shoulder lesions, right shoulder; M25.511 Pain in right shoulder; D63.8 Anemia in other chronic diseases classified elsewhere; I12.9 Hypertensive chronic kidney disease with stage 1 through stage 4 chronic kidney disease, or unspecified chronic kidney disease; N18.30 Chronic kidney disease, stage 3 unspecified; R91.8 Other nonspecific abnormal finding of lung field; Z87.891 Personal history of nicotine dependence; I48.92 Unspecified atrial flutter; Z79.01 Long term (current) use of anticoagulants; Z79.82 Long term (current) use of aspirin; Z79.899 Other long term (current) drug therapy
CPT/HCPCS: 38222; 36415; 85097; 88184; 88185; 88237; 88264; 88305; 88311; 88313; 88341; 88342; 88374; J1642

== ENCOUNTER → 2021-08-27 10:53 | Outpatient (BNVA) | payer MEDICARE, SELFPAY | PROVIDERS: Visit Provider Internal Medicine | DX: I48.3 Typical atrial flutter (principal); I48.19 Other persistent atrial fibrillation; Z51.81 Encounter for therapeutic drug level monitoring; Z79.01 Long term (current) use of anticoagulants | CPT/HCPCS: 93005; 99212 ==

== ENCOUNTER → 2021-09-08 09:45 | Outpatient (REF) | payer OTHER, SELFPAY ==
--- NOTE | ~2021-09-08 | NM_ITS ---
EXAMINATION: NM BONE SCAN OF THE WHOLE BODY CLINICAL INFORMATION: X-ray of shoulder shows mottled appearance. COMPARISON: No previous bone scan is available for comparison. Skeletal survey dated 08/05/2021 is available for comparison. Additional radiographs of the left ankle dated 07/21/2021 and the right shoulder dated 05/22/2021 are available for comparison. Several additional less recent radiographs of the right shoulder and chest and thoracic spine are also available for comparison. CT scan of the chest dated 07/12/2020 is available for comparison. TECHNIQUE: Multiple gamma scintillation camera images of the whole body were performed 3 hours following the intravenous administration of 32.0 mCi Tc-99m MDP. FINDINGS: In the head, no significant abnormalities are present. In the thoracic cage and upper extremities, there is mildly increased activity in the acromioclavicular and sternoclavicular joints bilaterally. There is mildly increased activity in the radial side of both hands or wrists, better visualized on the left. In the spine, there is mildly increased activity in the lower thoracic spine with faint foci of increased activity present in the right costovertebral junctions of T9-T11. There is also mildly increased activity in the left posterior elements at L5-S1. In the pelvis, there is a small equivocal focus of mildly increased activity in the posterior left iliac bone near or just superior to the upper margin of the left sacroiliac joint. In the lower extremities, mild to moderately increased activity is present in the patellar compartments of both knees and in a small rounded focus in the medial compartment of the left knee. There is mildly increased activity present posteriorly in the left ankle. There is mildly increased activity in a small focus in the mid right foot. No other definite bony abnormalities are noted. The urinary bladder and faint visualization of both kidneys are noted. Radiographs from a skeletal survey dated 08/05/2021 show mottled lucencies in the humeral heads bilaterally which are suspicious for multiple myeloma. NM/NM bone scan whole body IMPRESSION: 1. No significant abnormalities are present in the proximal humeri that correspond to abnormalities noted on the recent skeletal survey in these regions. Purely lytic abnormalities such as are seen in multiple myeloma may not show significant abnormalities on radionuclide bone scan. FDG PET/CT whole body imaging is recommended if multiple myeloma is suspected. 2. A few mild nonspecific abnormalities are noted as described above and these are all likely arthritic or traumatic in etiology. None of these abnormalities is strongly suspicious for metastatic disease.
== END ==
LOC: HO.NUCMED 09:45
PROVIDERS: Visit Provider Internal Medicine Medical Oncology
DX: R93.6 Abnormal findings on diagnostic imaging of limbs (principal); C90.00 Multiple myeloma not having achieved remission
CPT/HCPCS: 78306; A9503

== ENCOUNTER 2021-10-28 09:06 | Outpatient (REF) | payer OTHER, SELFPAY ==
--- NOTE | ~2021-10-28 | PE_ITS ---
EXAMINATION: Fluorine-18 FDG PET/CT Scan CLINICAL INDICATION: Initial treatment management. Lytic lesion of bone on x-ray. PROCEDURE: 56 minutes following the intravenous administration of 15.9 mCi of fluorine 18 FDG, images from the base of the skull to the mid thighs were obtained using a combined PET/CT scanner with CT scan based attenuation correction. No oral contrast was administered. No intravenous contrast was administered. Transverse, coronal, sagittal, and volume reconstruction projections were obtained. The patient's blood glucose as determined by a finger stick, was 112 mg/dl immediately prior to injection. Total CT exam dose-length product 717.29 mGy-cm * These CT images were obtained using dose optimization techniques as appropriate, variously including the following: Automated exposure control * Adjustment of mA and/or kV according to patient size (this includes techniques or standardized protocols for targeted exams where dose is matched to indication/reason for exam; i.e. extremities or head) * Use of iterative reconstruction technique COMPARISON: No previous PET/CT scan is available for comparison. CT scan of the chest dated 07/12/2020 and radiographic bone survey dated 08/05/2021 and bone scan dated 09/08/2021 are available for comparison. FINDINGS: (Slice numbers described in this report are numbered superiorly to inferiorly with slice #1 in the head) NECK AND VISUALIZED HEAD: No foci of abnormal FDG activity are noted. The distribution of FDG activity is physiological. There is no cervical lymphadenopathy. THORAX: There are no foci of abnormally increased FDG activity present in the chest. A 0.5 cm calcified nodule in the left upper lobe, slice 223/698, is unchanged from the diagnostic CT scan dated 07/12/2020 and this is much too small to be characterized on the FDG PET images, but additional 2 and 3 mm nodules visualized on that diagnostic study are not apparent on these nondiagnostic CT images. Trace right-sided pleural fluid is visualized, and this was not present on 07/12/2020, but there is no associated abnormal FDG activity. There is no left-sided pleural fluid, pericardial fluid, or pneumothorax. There is no mediastinal, supraclavicular, or axillary lymphadenopathy. ABDOMEN AND PELVIS: There is mild FDG activity present throughout the gastrointestinal tract without a suspicious focal component, likely physiological. There is diverticulosis without evidence of diverticulitis. The hollow viscera are otherwise unremarkable. The liver, gallbladder, and spleen are unremarkable. Bilateral hypodense renal cysts are present and these are all markedly FDG photopenic and likely simple cysts. The kidneys are otherwise unremarkable. The adrenal glands are unremarkable. The pancreas is atrophic but otherwise unremarkable. There is no retroperitoneal, mesenteric, pelvic or inguinal lymphadenopathy. MUSCULOSKELETAL: There are no foci of abnormally increased activity in the osseous structures. There is a mild thoracolumbar scoliosis with lumbar convexity to the left. There are diffuse degenerative changes in the spine. No suspicious sclerotic or lytic lesions are visualized. In particular, in the humeral heads no definite lytic lesions are apparent on these CT images. VASCULAR: Vascular calcifications are noted. PET/PET CT fusion skull to thigh IMPRESSION: 1. No abnormalities strongly suspicious for malignant or metastatic disease are noted. 2. No definite lytic lesions or FDG avid foci are present in the osseous structures.
== END 2021-10-28 09:07 | disposition home or self-care (01) ==
LOC: HO.PET 09:06
PROVIDERS: Visit Provider Internal Medicine Medical Oncology
DX: Z13.89 Encounter for screening for other disorder (principal)

== ENCOUNTER 2021-11-20 09:19 | Outpatient (REF) | payer OTHER, SELFPAY ==
--- NOTE | ~2021-11-20 | XR_ITS ---
EXAMINATION: XR CHEST CLINICAL INFORMATION: Localized swelling, mass and lump lower limb. COMPARISON: Chest radiographs 08/01/2020, 05/03/2020. PET/CT 10/28/2021 TECHNIQUE: 2 views of the chest were obtained. FINDINGS: There is a trace right effusion blunting the costophrenic sulci, new from prior exam 08/01/2020 and similar to more recent PET/CT 10/28/2021. Heart is upper limits of normal size, similar to prior study. There is even distribution of the pulmonary vascularity which may suggest mild elevated pulmonary venous pressures. There are no Romeo B lines. There is no airspace consolidation or groundglass opacity. The hilar and mediastinal contours and visualized bony structures are stable. XR/XR chest 2V IMPRESSION: -Trace right effusion similar to PET/CT 10/28/2021. -Even distribution pulmonary vascularity suggesting mild elevated pulmonary venous pressures. -No airspace consolidation, Romeo B lines, or groundglass opacity.
== END 2021-11-20 09:20 | disposition home or self-care (01) ==
LOC: HO.XRAY 09:19
PROVIDERS: PCP General Practice; Visit Provider General Practice
DX: R22.43 Localized swelling, mass and lump, lower limb, bilateral (principal)
CPT/HCPCS: 71046

== ENCOUNTER 2022-01-20 10:35 | Emergency (ER) | payer OTHER, SELFPAY ==
--- NOTE | ~2022-01-20 | XR_ITS ---
EXAMINATION: XR CHEST CLINICAL INFORMATION: Rule out CHF COMPARISON: Previous chest x-ray most recent November 2021 TECHNIQUE: Frontal view of the chest was obtained. FINDINGS: The cardiac silhouette is enlarged but stable. Hilar and mediastinal contours are unremarkable. Lungs are clear. There is no pleural effusion or pneumothorax. There are degenerative changes of the spine. XR/XR chest 1V IMPRESSION: Stable enlargement of the cardiac silhouette. No evidence of CHF.
[2022-01-20 11:14] VITALS: BP 126/96; PULSE 55; RESP 16; TEMP 36.3; O2SAT 97; BMI 31.1
[2022-01-20 11:25] LABS: MANUAL DIFF FLAG NO
[2022-01-20 11:27] LABS: Basophils Absolute Auto 0.1 X10*3/uL (0.0-0.2); Basophils Percent Auto 0.9 % (0-2); Eosinophils Absolute Auto 0.1 X10*3/uL (0.0-0.4); Eosinophils Percent Auto 2.3 % (0-4); Hematocrit 30.7 % (42.0-52.0); Hemoglobin 10.4 g/dl (14.0-18.0); Imm Gran Abs Auto 0.01 X10*3/uL (0.00-0.03); Imm Gran Pct Auto 0.2 % (0.0-0.4); Lymphocytes Absolute Auto 1.1 X10*3/uL (1.2-4.9); Lymphocytes Percent Auto 20.1 % (20-40); Mean Corpuscular HGB Conc 33.9 g/dl (31.0-36.0); Mean Corpuscular Hemoglobin 33.7 pg (27.0-33.0); Mean Corpuscular Volume 99.4 fL (80.0-98.0); Mean Platelet Volume 9.7 fL (9.4-12.4); Monocytes Absolute Auto 0.7 X10*3/uL (0.1-1.2); Monocytes Percent Auto 12.5 % (2-11); Neutrophils Absolute Auto 3.6 x10*3/uL (2.0-8.3); Platelet Count 205 X10*3/uL (160-400); Red Blood Count 3.09 X10*6/uL (4.60-5.80); Red Cell Distribution Width 13.3 % (11.0-16.0); White Blood Count 5.6 X10*3/uL (4.8-10.8)
[2022-01-20 11:47] LABS: Anion Gap 19 (12-20); Blood Urea Nitrogen 47 mg/dL (9-16); Calcium 9.3 mg/dL (8.4-10.2); Carbon Dioxide 21 mmol/L (22-29); Chloride 105 mmol/L (96-108); Creatinine Clr Calc Pharmacy 29.4; Estimated Glomerular Filt Rate 30; Glucose Random 112 mg/dL (60-115); Potassium 5.1 mmol/L (3.3-5.1); Sodium 140 mmol/L (135-145)
[2022-01-20 11:50] LABS: B Type Natriuretic Peptide 556 pg/mL (<100)
--- NOTE | 2022-01-20 15:12 | ED.EXTPRO ---
HPI - Extremity Problem General Chief complaint: Extremity Problem Stated complaint: no blood circulation in legs, discharge on leg Time Seen by Provider: 01/20/22 15:12 Source: patient Mode of arrival: ambulatory Limitations: no limitations History of Present Illness HPI Narrative: Patient history of atrial fibrillation/flutter on Eliquis and diltiazem with dependent leg edema on furosemide 20 mg twice daily comes here for increased swelling of the leg worse sometimes with blisters and leaking of the serous fluid. Patient denies any chest pain or shortness of breath no fever no chills no increased pain in the legs. 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 Related Data Home Medications Medication Instructions Recorded Confirmed acetaminophen 500 mg tablet 500 mg PO Q4-6H 05/27/20 08/27/21 diltiazem HCl 180 mg 360 mg PO DAILY 05/27/20 08/27/21 capsule,extended release 24 hr epinephrine 0.3 mg/0.3 mL 0.3 mg IM ONCE 05/27/20 08/27/21 injection, auto-injector ergocalciferol (vitamin D2) 1,250 1,250 mcg PO QWEEK 05/27/20 08/27/21 mcg (50,000 unit) capsule ferrous sulfate 325 mg (65 mg 325 mg PO DAILY 05/27/20 08/27/21 iron) tablet,delayed release flunisolide 25 mcg (0.025 %) nasal 2 spray intranasal BID 05/27/20 08/27/21 spray lisinopril 20 mg tablet 20 mg PO DAILY 05/27/20 08/27/21 omeprazole 20 mg capsule,delayed 20 mg PO DAILY 05/27/20 08/27/21 release pravastatin 40 mg tablet 40 mg PO BEDTIME 05/27/20 08/27/21 terazosin 5 mg capsule 5 mg PO BEDTIME 05/27/20 08/27/21 sennosides 8.6 mg tablet (senna) 1 - 2 tab PO QPM 07/15/21 08/27/21 Previous Rx's Medication Instructions Recorded apixaban 2.5 mg tablet (Eliquis) 2.5 mg PO BID #180 tabs 08/27/21 celecoxib 200 mg capsule (Celebrex) 200 mg PO BID 30 days #60 caps 10/13/21 hydrochlorothiazide 12.5 mg tablet 12.5 mg PO QAM #30 tabs 01/20/22 Allergies Allergy/AdvReac Type Severity Reaction Status Date / Time shrimp Allergy Intermediate SWELLING Verified 08/27/21 11:17 Review of Systems Review of Systems: Yes all other systems are reviewed and are negative [facility] Past Medical History Medical History Atrial flutter BPH (benign prostatic hyperplasia) Chronic kidney disease, stage 3 Depression Essential hypertension GERD (gastroesophageal reflux disease) Other and unspecified hyperlipidemia Pre-diabetes Pulmonary nodules Vitamin D deficiency Surgical History History of umbilical hernia repair Family History Family History Father No problems noted. Mother No problems noted. 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 Oriented X3. No acute distress. Eyes: pallor++ ENT: Pharynx normal. Oral Mucosa moist Neck: Normal inspection. Neck supple. CVS: Normal heart rate and rhythm. Pulses normal. Respiratory: No respiratory distress. Equal air entry bilateral, no wheezing/rales/rhonchi Abdomen: Soft and nontender. Bowel sounds are present, no mass palpable, no CVA tenderness Skin: Skin warm and dry. Normal skin color. Normal skin turgor. Extremities: +++lower extremity edema. No calf tenderness Neuro: Oriented X 3. No motor deficit. No sensory deficit. MDM - Extremity (Nontraumatic) Lab Data Result diagrams: 01/20/22 11:20 01/20/22 11:20 Labs: Lab Results 01/20/22 01/20/22 01/20/22 Range/Units 11:20 11:20 11:20 WBC 5.6 (4.8-10.8) X10*3/uL RBC 3.09 L (4.60-5.80) X10*6/uL Hgb 10.4 L (14.0-18.0) g/dl Hct 30.7 L (42.0-52.0) % MCV 99.4 H (80.0-98.0) fL MCH 33.7 H (27.0-33.0) pg MCHC 33.9 (31.0-36.0) g/dl RDW 13.3 (11.0-16.0) % Plt Count 205 (160-400) X10*3/uL MPV 9.7 (9.4-12.4) fL Immature Gran % (Auto) 0.2 (0.0-0.4) % Neut % (Auto) 64.0 (45-73) % Lymph % (Auto) 20.1 (20-40) % Real % (Auto) 12.5 H (2-11) % Eos % (Auto) 2.3 (0-4) % Baso % (Auto) 0.9 (0-2) % Lymph # (Auto) 1.1 L (1.2-4.9) X10*3/uL Real # (Auto) 0.7 (0.1-1.2) X10*3/uL Eos # (Auto) 0.1 (0.0-0.4) X10*3/uL Baso # (Auto) 0.1 (0.0-0.2) X10*3/uL Abs Immat Gran (auto) 0.01 (0.00-0.03) X10*3/uL Absolute Neuts (auto) 3.6 (2.0-8.3) x10*3/uL Absolute Nucleated RBC 0.000 (0.0-0.012) X10*3/uL Nucleated RBC % (auto) 0.0 (0.0-0.2) /100WBC Sodium 140 (135-145) mmol/L Potassium 5.1 (3.3-5.1) mmol/L Chloride 105 (96-108) mmol/L Carbon Dioxide 21 L (22-29) mmol/L Anion Gap 19 (12-20) BUN 47 H D (9-16) mg/dL Creatinine 2.11 H (0.5-1.4) mg/dL Estim Creat Clear Calc 29.4 Estimated GFR 30 Random Glucose 112 (60-115) mg/dL Calcium 9.3 (8.4-10.2) mg/dL B-Natriuretic Peptide 556 H (<100) pg/mL ECG Data Attestation EKG: I personally reviewed and interpreted this ECG as follows: Interpretation: Atrial fibrillation with heart rate 56 beats per minute no acute ST T wave changes no acute ischemia Discharge Plan Discharge Clinical Impression: Lower extremity edema, Chronic congestive heart failure Patient Disposition: Home, Self-Care Instructions: Heart Failure (ED), Leg Edema (ED) Additional Instructions: Continue water pill as prescribed by your pcp Your kidney functions are weak need to follow with medical staff credentialing coordinator Keep your legs elevated With add hydrochlorothiazide daily Contin?e con la p?ldora de agua seg?n lo prescrito por [facility] Farzana funciones renales son d?jay necesita seguir con nefr?logo Mant?n tus piernas elevadas Con agregar hidroclorotiazida diariamente Prescriptions: New hydrochlorothiazide 12.5 mg tablet 12.5 mg PO QAM Qty: 30 0RF No Action celecoxib [Celebrex] 200 mg capsule 200 mg PO BID 30 Days Qty: 60 3RF sennosides [senna] 8.6 mg tablet 1 - 2 tab PO QPM diltiazem HCl 180 mg capsule,extended release 24hr 360 mg PO DAILY pravastatin 40 mg tablet 40 mg PO BEDTIME lisinopril 20 mg tablet 20 mg PO DAILY omeprazole 20 mg capsule,delayed release(DR/EC) 20 mg PO DAILY terazosin 5 mg capsule 5 mg PO BEDTIME ergocalciferol (vitamin D2) 1,250 mcg (50,000 unit) capsule 1,250 mcg PO QWEEK acetaminophen 500 mg tablet 500 mg PO Q4-6H ferrous sulfate 325 mg (65 mg iron) tablet,delayed release (DR/EC) 325 mg PO DAILY flunisolide 25 mcg (0.025 %) spray,non-aerosol 2 spray intranasal BID epinephrine 0.3 mg/0.3 mL auto-injector 0.3 mg IM ONCE Eliquis 2.5 mg tablet 2.5 mg PO BID Qty: 180 3RF Referrals: Jenaro Corey MD [Physician] - 1 week Print Language: Slovenian
[2022-01-20 15:18] VITALS: BP 127/59; PULSE 65; RESP 16; TEMP 36.5; O2SAT 97
--- NOTE | 2022-01-20 15:25 | PC.NURSE ---
patient assessed with use of foreign exchange position clerk . crista . lungs clear . heart rate regular at 60 beats . skin warm and appears dusky . edema noted in lower extremities . open area laterally on left ankle that patient reports was a blister that popped , measuring 2cm by 4cm . was cleansed and covered by nonstick dressing . abdomen soft non tender . positive bowel sounds in all four quadrants . patient aware of plan of care .
--- NOTE | 2022-01-20 16:07 | ECG_ITS ---
Test Reason : fluid retention Blood Pressure : / mmHG Vent. Rate : 056 BPM Atrial Rate : 000 BPM P-R Int : 000 ms QRS Dur : 104 ms QT Int : 444 ms P-R-T Axes : 000 -23 091 degrees QTc Int : 428 ms Poor data quality, interpretation may be adversely affected Atrial fibrillation with slow ventricular response Low voltage QRS Nonspecific ST and T wave abnormality Abnormal ECG When compared with ECG of 03-SEP-2020 11:52, Atrial fibrillation has replaced Sinus rhythm Non-specific change in ST segment in Inferior leads ST now depressed in Lateral leads Nonspecific T wave abnormality, improved in Inferior leads Referred By: Stevan Marin Electronically Signed By:STAR LEVY
[2022-01-20] MEDS: Spironolactone 25 MG TABLET PO (16:32)
[2022-01-20] MEDS: Furosemide 40 MG TABLET 20 MG PO (16:33)
[2022-01-20 16:35] VITALS: BP 145/51; PULSE 60; RESP 16; TEMP 36.5; O2SAT 96
== END 2022-01-20 17:21 | disposition home or self-care (01) ==
PROVIDERS: Emergency Provider Internal Medicine; PCP General Practice
DX: I48.91 Unspecified atrial fibrillation (principal); R60.0 Localized edema; R06.02 Shortness of breath; I50.9 Heart failure, unspecified; Z87.891 Personal history of nicotine dependence; Z79.899 Other long term (current) drug therapy; Z79.01 Long term (current) use of anticoagulants
CPT/HCPCS: 36415; 71045; 80048; 83880; 85025; 93005; 99283; 99284

== ENCOUNTER 2022-01-30 10:31 | Outpatient (REF) | payer OTHER, SELFPAY ==
--- NOTE | ~2022-01-30 | XR_ITS ---
EXAMINATION: KNEE X-RAY CLINICAL INFORMATION: Pain COMPARISON: None TECHNIQUE: Standing AP view of both knees and lateral and sunrise view of the right knee FINDINGS: Right: Bone alignment is normal. No fracture or dislocation is seen. There is degenerative meniscal calcification. There is arthritis at the lateral femoral tibial and patellofemoral joints with joint space narrowing and osteophyte formation. There is no joint effusion. There is atherosclerotic disease. Standing AP view of the left knee demonstrates degenerative meniscal calcification and medial femoral tibial joint space narrowing. XR/XR knee standing BI IMPRESSION: Degenerative changes.
--- NOTE | ~2022-01-30 | XR_ITS ---
EXAMINATION: KNEE X-RAY CLINICAL INFORMATION: Pain COMPARISON: None TECHNIQUE: Standing AP view of both knees and lateral and sunrise view of the right knee FINDINGS: Right: Bone alignment is normal. No fracture or dislocation is seen. There is degenerative meniscal calcification. There is arthritis at the lateral femoral tibial and patellofemoral joints with joint space narrowing and osteophyte formation. There is no joint effusion. There is atherosclerotic disease. Standing AP view of the left knee demonstrates degenerative meniscal calcification and medial femoral tibial joint space narrowing. XR/XR knee RT 2V IMPRESSION: Degenerative changes.
== END 2022-01-30 10:32 | disposition home or self-care (01) ==
LOC: HO.HOSX 10:31
PROVIDERS: Visit Provider Orthopaedic Surgery
DX: S81.802A Unspecified open wound, left lower leg, initial encounter (principal); I50.9 Heart failure, unspecified
CPT/HCPCS: 73560; 73565; 99212

== ENCOUNTER 2022-03-26 08:01 | Outpatient (REF) | payer OTHER, SELFPAY ==
--- NOTE | ~2022-03-26 | XR_ITS ---
EXAMINATION: XR RIBS, RIGHT CLINICAL INFORMATION: Pleurodynia COMPARISON: 01/20/2022 TECHNIQUE: 3 views of the right ribs were obtained. FINDINGS: Lungs are clear. No consolidation, pneumothorax, or pleural effusion. The cardiomediastinal silhouette and pulmonary vasculature are normal. Osseous structures are unremarkable. Ribs are intact. No fractures are identified. XR/XR ribs RT min 3V w CXR1V IMPRESSION: Unremarkable examination.
== END 2022-03-26 08:02 | disposition home or self-care (01) ==
LOC: HO.XRAY 08:01
PROVIDERS: PCP General Practice; Visit Provider General Practice
DX: R07.81 Pleurodynia (principal)
CPT/HCPCS: 71101

== ENCOUNTER 2022-08-25 09:15 | Outpatient (REF) | payer OTHER, SELFPAY ==
--- NOTE | ~2022-08-25 | XR_ITS ---
EXAMINATION: XR HIP, BILATERAL , AP pelvis CLINICAL INFORMATION: Pain COMPARISON: None available at the time of this dictation. TECHNIQUE: Frontal and lateral views of the hip acquired. , AP pelvis FINDINGS: There is no evidence of acute fracture or dislocation. There are mild degenerative arthritic changes of the hip evident by sclerotic changes of the acetabular roof and narrowing of the joint space. Mild degenerative changes of the symphysis pubis. Mild degenerative changes of the SI joints. Adjacent pubic rami are intact. Surrounding soft tissues are unremarkable. XR/XR hip BI w PEL1V IMPRESSION: Mild degenerative osteoarthritis. No fractures. No radiographic evidence of destructive bone lesion. .
== END 2022-08-25 09:16 | disposition home or self-care (01) ==
LOC: HO.XRAY 09:15
PROVIDERS: PCP General Practice; Visit Provider General Practice
DX: M25.551 Pain in right hip (principal); M25.552 Pain in left hip
CPT/HCPCS: 73521

== ENCOUNTER → 2022-08-31 12:34 | Outpatient (BNVA) | payer OTHER, SELFPAY | PROVIDERS: PCP General Practice; Referring Provider General Practice; Visit Provider Internal Medicine | DX: I48.19 Other persistent atrial fibrillation (principal); I48.3 Typical atrial flutter; I10 Essential (primary) hypertension; Z79.01 Long term (current) use of anticoagulants; Z51.81 Encounter for therapeutic drug level monitoring | CPT/HCPCS: 99212 ==

== ENCOUNTER 2022-11-03 08:55 | Outpatient (REF) | payer OTHER, SELFPAY ==
[2022-11-03 09:05] LABS: MANUAL DIFF FLAG NO
[2022-11-03 10:00] LABS: Basophils Absolute Auto 0.1 X10*3/uL (0.0-0.2); Eosinophils Absolute Auto 0.3 X10*3/uL (0.0-0.4); Eosinophils Percent Auto 3.9 % (0-4); Hematocrit 33.1 % (42.0-52.0); Hemoglobin 10.8 g/dl (14.0-18.0); Imm Gran Abs Auto 0.01 X10*3/uL (0.00-0.03); Imm Gran Pct Auto 0.1 % (0.0-0.4); Lymphocytes Absolute Auto 1.7 X10*3/uL (1.2-4.9); Lymphocytes Percent Auto 24.6 % (20-40); Mean Corpuscular HGB Conc 32.6 g/dl (31.0-36.0); Mean Corpuscular Hemoglobin 32.7 pg (27.0-33.0); Mean Corpuscular Volume 100.3 fL (80.0-98.0); Mean Platelet Volume 10.1 fL (9.4-12.4); Monocytes Absolute Auto 0.9 X10*3/uL (0.1-1.2); Monocytes Percent Auto 13.9 % (2-11); Neutrophils Absolute Auto 3.8 x10*3/uL (2.0-8.3); Neutrophils Percent Auto 56.5 % (45-73); Platelet Count 231 X10*3/uL (160-400); Red Cell Distribution Width 12.7 % (11.0-16.0); White Blood Count 6.7 X10*3/uL (4.8-10.8)
[2022-11-03 10:47] LABS: Alanine Aminotransferase 10 U/L (0-40); Albumin Level 4.1 g/dL (3.5-5.0); Alkaline Phosphatase 80 U/L (39-117); Anion Gap 14 (12-20); Aspartate Amino Transferase 11 U/L (5-37); Bilirubin Total 0.6 mg/dL (0.0-1.0); Blood Urea Nitrogen 49 mg/dL (9-16); Calcium 9.5 mg/dL (8.4-10.2); Carbon Dioxide 27 mmol/L (22-29); Chloride 104 mmol/L (96-108); Estimated Glomerular Filt Rate 28; Glucose Random 97 mg/dL (60-115); Potassium 4.1 mmol/L (3.3-5.1); Sodium 141 mmol/L (135-145); Total Protein 7.3 g/dL (6.5-8.0)
[2022-11-03 11:04] LABS: Ferritin 209 ng/mL (20-250)
== END 2022-11-03 08:56 | disposition home or self-care (01) ==
LOC: HO.LAB 08:55
PROVIDERS: Visit Provider Internal Medicine Medical Oncology
DX: D64.9 Anemia, unspecified (principal); Z79.01 Long term (current) use of anticoagulants
CPT/HCPCS: 36415; 80053; 82728; 85025

== ENCOUNTER 2022-11-17 08:17 | Outpatient (REF) | payer OTHER, SELFPAY ==
--- NOTE | ~2022-11-17 | CT_ITS ---
EXAMINATION: CT CHEST WITHOUT CONTRAST CLINICAL INFORMATION: Follow-up pulmonary nodules COMPARISON: Chest and right rib x-ray March 2022 PET/CT October [address] July 2020 TECHNIQUE: Multidetector volumetric CT imaging of the chest was done. Axial MIP volume rendering provided. Sagittal and coronal reformatted images were obtained. This CT examination was performed using dose optimization techniques as appropriate, variously including the following: *Automated exposure control *Adjustment of mA and/or kV according to patient size (this includes techniques or standardized protocols for targeted exams where dose is matched to indication/reason for exam; i.e. extremities or head) *Use of iterative reconstruction technique DLP: 153 mGy-cm FINDINGS: LUNGS: The small pulmonary nodules are stable. Largest pulmonary nodule is a 5 mm calcified left upper lobe nodule axial image 268 areas 5. MEDIASTINUM: Upper normal heart size. No pericardial effusion. No enlarged hilar or mediastinal lymph nodes. Upper normal-size thoracic aorta. Mild aortic valve calcification. CORONARY ARTERY CALCIFICATION: Mild PLEURA: There is no pleural effusion. No pleural mass or thickening. AXILLA: No lymphadenopathy. UPPER ABDOMEN: Bilateral renal cysts. OSSEOUS STRUCTURES: Heterogeneous attenuation of the bones. Degenerative changes of the spine. CT/CT chest wo IV con IMPRESSION: Stable small pulmonary nodules. Fleischner guidelines were followed.
== END 2022-11-17 08:18 | disposition home or self-care (01) ==
LOC: HO.CT 08:17
PROVIDERS: PCP General Practice; Visit Provider Internal Medicine Medical Oncology
DX: R91.8 Other nonspecific abnormal finding of lung field (principal)
CPT/HCPCS: 71250

== ENCOUNTER 2023-07-16 13:18 | Outpatient (REF) | payer OTHER, SELFPAY ==
[2023-07-16 13:42] LABS: MANUAL DIFF FLAG NO
[2023-07-16 14:09] LABS: Basophils Absolute Auto 0.1 X10*3/uL (0.0-0.2); Basophils Percent Auto 0.8 % (0-2); Eosinophils Absolute Auto 0.2 X10*3/uL (0.0-0.4); Eosinophils Percent Auto 2.6 % (0-4); Hematocrit 32.7 % (42.0-52.0); Hemoglobin 10.9 g/dl (14.0-18.0); Imm Gran Abs Auto 0.03 X10*3/uL (0.00-0.03); Imm Gran Pct Auto 0.5 % (0.0-0.4); Lymphocytes Absolute Auto 1.5 X10*3/uL (1.2-4.9); Mean Corpuscular HGB Conc 33.3 g/dl (31.0-36.0); Mean Corpuscular Hemoglobin 32.5 pg (27.0-33.0); Mean Corpuscular Volume 97.6 fL (80.0-98.0); Mean Platelet Volume 10.1 fL (9.4-12.4); Monocytes Absolute Auto 0.7 X10*3/uL (0.1-1.2); Monocytes Percent Auto 10.9 % (2-11); Neutrophils Absolute Auto 3.8 x10*3/uL (2.0-8.3); Neutrophils Percent Auto 61.2 % (45-73); Platelet Count 210 X10*3/uL (160-400); Red Blood Count 3.35 X10*6/uL (4.60-5.80); Red Cell Distribution Width 13.6 % (11.0-16.0); White Blood Count 6.3 X10*3/uL (4.8-10.8)
[2023-07-16 14:41] LABS: Alanine Aminotransferase 10 U/L (0-40); Albumin Level 4.1 g/dL (3.5-5.0); Alkaline Phosphatase 103 U/L (39-117); Anion Gap 13 (12-20); Aspartate Amino Transferase 12 U/L (5-37); Bilirubin Total 0.6 mg/dL (0.0-1.0); Blood Urea Nitrogen 29 mg/dL (9-16); Calcium 9.6 mg/dL (8.4-10.2); Carbon Dioxide 26 mmol/L (22-29); Chloride 105 mmol/L (96-108); Estimated Glomerular Filt Rate 35; Glucose Random 123 mg/dL (60-115); Potassium 3.8 mmol/L (3.3-5.1); Sodium 140 mmol/L (135-145); Total Protein 7.7 g/dL (6.5-8.0)
[2023-07-16 14:56] LABS: B Type Natriuretic Peptide 397 pg/mL (<100)
== END 2023-07-16 13:19 | disposition home or self-care (01) ==
LOC: HO.LAB 13:18
PROVIDERS: PCP General Practice; Visit Provider General Practice
DX: M79.89 Other specified soft tissue disorders (principal); N18.4 Chronic kidney disease, stage 4 (severe); D63.1 Anemia in chronic kidney disease
CPT/HCPCS: 36415; 80053; 83880; 85025

== ENCOUNTER 2023-08-06 12:24 | Outpatient (REF) | payer OTHER, SELFPAY ==
[2023-08-06 14:17] LABS: Estimated Average Glucose 108 mg/dL; Hemoglobin A1c % 5.4 % (<6.0)
[2023-08-06 14:25] LABS: B Type Natriuretic Peptide 445 pg/mL (<100)
[2023-08-06 14:26] LABS: Anion Gap 15 (12-20); Blood Urea Nitrogen 34 mg/dL (9-16); Calcium 9.4 mg/dL (8.4-10.2); Carbon Dioxide 28 mmol/L (22-29); Chloride 106 mmol/L (96-108); Estimated Glomerular Filt Rate 36; Glucose Random 123 mg/dL (60-115); Potassium 3.6 mmol/L (3.3-5.1); Sodium 145 mmol/L (135-145)
== END 2023-08-06 12:25 | disposition home or self-care (01) ==
LOC: HO.LAB 12:24
PROVIDERS: PCP General Practice; Visit Provider General Practice
DX: M79.89 Other specified soft tissue disorders (principal); M89.9 Disorder of bone, unspecified
CPT/HCPCS: 36415; 80048; 83036; 83880

== ENCOUNTER 2023-08-30 09:37 | Outpatient (AMB) | payer OTHER, SELFPAY ==
[2023-08-30 09:47] VITALS: BP 120/60; PULSE 43; BMI 26.2
--- NOTE | 2023-08-30 09:47 | MHC.OFFVIS ---
Intake Vital Signs 08/30/23 09:47 Height 5 ft 7 in Weight 167 lb 8.821 oz BMI 26.2 BP 120/60 Blood Pressure Location Lt brachial Position Sitting Pulse 43 L Intake Visit Reasons: 1 year follow up Seat Builder Required: Yes Seat Builder Language: Soaking Pit Operator Name: [id number] Elvira Accompanied by: Employee Allergies shrimp Allergy (Intermediate, Verified 08/30/23 09:49) SWELLING Medication List - Last Reviewed 08/30/23 by Maia Alvarado apixaban (Eliquis) 2.5 mg PO BID diltiazem HCl ER 360 mg PO DAILY epinephrine 0.3 mg IM ONCE ferrous sulfate 325 mg PO DAILY flunisolide 2 sprays intranasal BID furosemide 20 mg PO BID lisinopril 20 mg PO DAILY omeprazole 20 mg PO DAILY pravastatin 40 mg PO BEDTIME HPI HPI Comments History of Present Illness Details Ras returns for follow-up regarding atrial flutter/fibrillation. Overall, no complaints. Feels well. Discussed using special education professor. [facility] Medical History (Updated 08/30/23 @ 11:58 by Richie Menezes MD) Atrial flutter Depression Pulmonary nodules GERD (gastroesophageal reflux disease) Other and unspecified hyperlipidemia Vitamin D deficiency BPH (benign prostatic hyperplasia) Chronic kidney disease, stage 3 Essential hypertension Pre-diabetes Surgical History History of umbilical hernia repair Family History Father No problems noted. Mother No problems noted. 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 Review of Systems Const Denies weakness ENT Denies dizziness Card Denies chest pain, Denies chest pain with activity, Denies syncope, Denies rapid heart rate, Denies pedal edema, Denies edema, Denies leg edema, Denies lightheadedness, Denies palpitations, Denies dyspnea, Denies dyspnea on exertion and Denies orthopnea Resp Denies cough, Denies dyspnea and Denies dyspnea on exertion GI Denies hematochezia and Denies change in stool character Musc Denies abnormal gait, Denies muscle cramps, Denies muscle weakness, Denies numbness, Denies radiating pain into limb and Denies tingling Neuro Denies abnormal gait, Denies dizziness, Denies syncope, Denies numbness, Denies tingling and Denies weakness Endo Denies palpitations Physical Exam Vital Signs: Last Vital Signs Pulse 43 L 08/30/23 09:47 BP 120/60 08/30/23 09:47 BMI result Body Mass Index 26.2 Const General: comfortable and no acute distress Orientation/consciousness: patient oriented x3 HEENT Other: Unremarkable Head: Yes normal to inspection Neck Neck: Yes normal visual inspection Chest Chest palpation & inspection: normal inspection of the chest Resp Auscultation: clear to auscultation bilaterally Cardio Palpation: normal PMI Heart sounds: S1 normal heart sound present, S2 normal heart sound present, no gallops, no murmurs and no rubs GI Palpation (GI): Soft to palpation Back/Spine/Pelvis Other: unremarkable Skin General skin exam: no rashes or lesions noted Neuro General: patient oriented x3 Extrem General: Yes normal to inspection Psych Mental Status: mental status grossly normal Office Procedures EKG Details: EKG shows atrial fibrillation at a rate of 43/Min. Nonspecific ST-T changes. [id number], Complete Assessment & Plan Assessment & Plan (1) Atrial fibrillation with slow ventricular response: Code(s): I48.91 - Unspecified atrial fibrillation (2) Essential hypertension: Code(s): I10 - Essential (primary) hypertension Plan EKG today shows atrial fibrillation with slow ventricular rate. Echocardiogram 2020 with LVEF of 55-60%, mild biatrial enlargement and otherwise unremarkable. Meds confirmed with the pharmacy directly. He is on diltiazem ER 360 mg daily. We can reduce the dose to diltiazem ER 180 mg daily because of the bradycardia. Otherwise continue anticoagulation without changes. We will check another Holter in about 2-3 months reassess the heart rate. With regard to hypertension, current list includes lisinopril, furosemide. Diltiazem is probably also helping with the blood pressure. Seems stable. Discussed with patient as well as PCI using special education professor. Total time spent including review of data, counseling, documentation, coordination of care-32 minutes. Orders: Orders ECG 3 day holter monitor 2 Months I48.19 - Other persistent atrial fibrillation Medications: New diltiazem HCl ER 180 mg PO DAILY 90 caps 3RF Coding Level of Care Code Est Pt Level 4 (80682) Diagnoses Atrial fibrillation with slow ventricular response I48.91 Essential hypertension I10 CPT Codes EKG - CPT: 06043-[id number], Complete ([id number])
== END 2023-08-30 10:09 | disposition home or self-care (01) ==
PROVIDERS: Visit Provider Internal Medicine
DX: I48.91 Unspecified atrial fibrillation (principal); I10 Essential (primary) hypertension
CPT/HCPCS: 93010; 99214

== ENCOUNTER → 2023-08-30 09:37 | Outpatient (BNVA) | payer OTHER, SELFPAY | PROVIDERS: Visit Provider Internal Medicine | DX: I48.91 Unspecified atrial fibrillation (principal); I10 Essential (primary) hypertension | CPT/HCPCS: 93005; 99212 ==

== ENCOUNTER → 2023-11-19 09:11 | Outpatient (REF) | payer OTHER, SELFPAY ==
--- NOTE | 2023-11-19 09:14 | HM_ITS ---
Conclusion: 1. Patient was monitored for total period of 1 day and 12 hours 2. Baseline was atrial fibrillation with average heart of 56 beats per minute on the slow ventricular response side 3. Frequent slow ventricular response noted with 47% of time heart rate below 60 beats per minute 4. No significant pauses noted 5. Occasional PVCs noted 6. No patient reported events MTDD
== END ==
LOC: HO.CARD 09:11
PROVIDERS: PCP General Practice; Visit Provider Internal Medicine
DX: I48.19 Other persistent atrial fibrillation (principal)
CPT/HCPCS: 93242

== ENCOUNTER → 2023-11-19 09:14 | Outpatient (BNV) | payer OTHER, SELFPAY | PROVIDERS: PCP General Practice; Visit Provider Internal Medicine Cardiovascular Disease | DX: I48.91 Unspecified atrial fibrillation (principal) | CPT/HCPCS: 93227 ==

== ENCOUNTER 2023-12-24 08:23 | Outpatient (AMB) | payer OTHER, SELFPAY ==
[2023-12-24 08:37] VITALS: BP 132/50; PULSE 42; BMI 25.5
--- NOTE | 2023-12-24 08:37 | A.OFFVIS_ITS ---
Vital Signs 12/24/23 08:37 Height 5 ft 7 in Weight 163 lb 2.273 oz BMI 25.5 BP 132/50 L Blood Pressure Location Lt brachial Position Sitting Pulse 42 L Pulse Source Monitor Intake Visit Reasons: f/u after testing Wound Care Nurse Required: Yes Wound Care Nurse Language: Arc Furnace Operator Name: [id number] andrés bruno Allergies shrimp Allergy (Intermediate, Verified 12/24/23 08:39) SWELLING Medication List - Last Reconciled 12/24/23 by Dania Quinonez NP-C apixaban (Eliquis) 2.5 mg PO BID diltiazem HCl ER 180 mg PO DAILY epinephrine 0.3 mg IM ONCE ferrous sulfate 325 mg PO DAILY flunisolide 2 sprays intranasal BID furosemide 20 mg PO BID lisinopril 20 mg PO DAILY omeprazole 20 mg PO DAILY pravastatin 40 mg PO BEDTIME HPI HPI f/u after testing: Details: Ras is an 82 yo male with PMH of HTN, preDM, CKD, atrial flutter who presents for follow up. Today he states he has been feeling good with no concerning symptoms. He denies heart palpitations, lightheadedness. No presyncope, syncope, falls. No chest discomfort at rest or with activity, no sob, PND, orthopnea or edema. Rides his stationary bike for 1 hour each day and tolerates it well. No bleeding issues reported. taking all meds. 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 [facility] Medical History (Updated 12/24/23 @ 08:42 by Dania Quinonez, FINANCIAL SYSTEMS DIRECTOR-C) Atrial flutter Depression Pulmonary nodules GERD (gastroesophageal reflux disease) Other and unspecified hyperlipidemia Vitamin D deficiency BPH (benign prostatic hyperplasia) Chronic kidney disease, stage 3 Essential hypertension Pre-diabetes Surgical History History of umbilical hernia repair Family History Father No problems noted. Mother No problems noted. 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 Review of Systems Const All systems reviewed & are unremarkable except as noted in HPI and below ENT Denies dizziness Card Denies chest pain, Denies chest pain at rest, Denies chest pain with activity, Denies rapid heart rate, Denies pedal edema, Denies edema, Denies leg edema, Denies lightheadedness, Denies palpitations, Denies dyspnea, Denies dyspnea on exertion and Denies orthopnea Resp Denies cough, Denies dyspnea and Denies dyspnea on exertion GI Denies hematochezia and Denies change in stool character Musc Denies abnormal gait, Denies limited range of motion, Denies muscle cramps, Denies muscle weakness, Denies numbness, Denies radiating pain into limb, Denies stiffness and Denies tingling Neuro Denies abnormal gait, Denies dizziness, Denies numbness and Denies tingling Endo Denies palpitations Physical Exam Vital Signs: Last Vital Signs Pulse 42 L 12/24/23 08:37 BP 132/50 L 12/24/23 08:37 BMI result Body Mass Index 25.5 Const General: cooperative, healthy appearing, comfortable and no acute distress Orientation/consciousness: patient oriented x3 Neck Neck: Yes normal visual inspection and Yes no JVD Resp Effort & Inspection: normal respiratory effort Auscultation: clear to auscultation bilaterally, no crackles, no rales, no rhonchi and no wheezes Cardio Jugular venous distension: no JVD Rate: bradycardic Rhythm: abnormal rhythm Heart sounds: S1 normal heart sound present, S2 normal heart sound present, no murmurs and no rubs Neuro General: patient oriented x3 Extrem General: Yes normal to inspection and No no pedal edema Psych Appearance: grossly normal Mental Status: mental status grossly normal Speech and movement: Normal speech and movement present Office Procedures EKG Details: Today, read by me, afib, slow ventricular response, rate 42, QTc 405 ms [id number], Complete Assessment & Plan Assessment & Plan (1) Chronic atrial fibrillation: Code(s): I48.20 - Chronic atrial fibrillation, unspecified Category: Medical Plan: History of chronic atrial fibrillation. On Diltiazem for heart rate control. Dose reduced last visit due to slow heart rate. Holter monitor done on 11/19/23 for 1.5 hrs shows atrial fibrillation, average rate 56, 47% of the time heart rate < 60 b/ min, occ PVCs. Last echo in 2020 showing EF 55-60%, mild biatrial enlargement. Today he reports feeling well with no concerning symptoms. He rides his stationary bike daily. EKG today shows atrial fibrillation with slow ventricular response, rate 42. At this time will further reduce Diltiazem down to 30mg bid. Continue eliquis 2.5 mg bid for anticoagulation. Labs done on08/06/23 showed cr 1.8, Hct 32.7 - stable. Cardiology follow up in 6 mo, sooner if needed (2) Essential hypertension: Code(s): I10 - Essential (primary) hypertension Category: Medical Plan: Well controlled at present. Changing Diltiazem as above. Continue furosemide, lisinopril. Follows with PCP (3) Congestive heart failure (CHF): Code(s): I50.9 - Heart failure, unspecified Category: Medical Plan: No clinical signs of HF on exam. Denies sob. Reports good acivity tolerance. s/s HF reviewed with him. (4) Anticoagulated: Code(s): Z79.01 - senior living (current) use of anticoagulants Category: Medical Plan: On Eliquis. Tolerating well. Plan Time spent on chart review, documentation, interview, assessment. Medications: New diltiazem HCl Dose reduced 30 mg PO BID 60 tabs 5RF 30 days Discontinued diltiazem HCl ER Discontinued Reason: Doctor's Order 180 mg PO DAILY 90 caps 3RF Coding Level of Care Code Est Pt Level 4 (56837) Diagnoses Chronic atrial fibrillation I48.20 Essential hypertension I10 Congestive heart failure (CHF) I50.9 Anticoagulated Z79.01 CPT Codes EKG - CPT: 53240-[id number], Complete ([id number]) Time Spent (min) 28
== END 2023-12-24 09:09 | disposition home or self-care (01) ==
PROVIDERS: PCP General Practice; Visit Provider Nurse Practitioner Family
DX: I48.20 Chronic atrial fibrillation, unspecified (principal); I10 Essential (primary) hypertension; I50.9 Heart failure, unspecified; Z79.01 Long term (current) use of anticoagulants
CPT/HCPCS: 93010; 99214

== ENCOUNTER → 2023-12-24 08:23 | Outpatient (BNVA) | payer OTHER, SELFPAY | PROVIDERS: PCP General Practice; Visit Provider Nurse Practitioner Family | DX: I13.0 Hypertensive heart and chronic kidney disease with heart failure and stage 1 through stage 4 chronic kidney disease, or unspecified chronic kidney disease (principal); I50.9 Heart failure, unspecified; N18.9 Chronic kidney disease, unspecified; I48.20 Chronic atrial fibrillation, unspecified; Z79.01 Long term (current) use of anticoagulants | CPT/HCPCS: 93005; 99212 ==

== ENCOUNTER 2024-02-25 08:48 | Outpatient (AMB) | payer OTHER, SELFPAY ==
[2024-02-25 09:00] VITALS: BP 132/68; PULSE 47; BMI 25.4
--- NOTE | 2024-02-25 09:00 | A.OFFVIS_ITS ---
Vital Signs 02/25/24 09:00 Height 5 ft 7 in Weight 162 lb BMI 25.4 BP 132/68 Blood Pressure Location Lt brachial Position Sitting Pulse 47 L Pulse Source Monitor Intake Visit Reasons: chest discomfort Gas Refrigerator Servicer Required: Yes Gas Refrigerator Servicer Name: [id number] Allergies shrimp Allergy (Intermediate, Verified 12/24/23 08:39) SWELLING Medication List - Last Reconciled 02/25/24 by Dania Quinonez NP-C apixaban (Eliquis) 2.5 mg PO BID epinephrine 0.3 mg IM ONCE flunisolide 2 sprays intranasal BID furosemide 20 mg PO BID lisinopril 20 mg PO DAILY omeprazole 20 mg PO DAILY pravastatin 40 mg PO BEDTIME HPI HPI chest discomfort: Details: Ras is an 83 yo male with PMH of HTN, preDM, CKD, atrial flutter who presents for follow up. Today he states he has been getting left-sided chest discomfort on and off for the last week. This is causing him much concern. He describes it as a pressure that can happen with him sitting or walking. It will last several minutes and go away on its own. He has no associated symptoms. He has no tenderness to palpation or discomfort with movement of his left arm. He says this is a new feeling for him. No shortness of breath, PND, orthopnea or edema. No heart palpitations, lightheadedness, presyncope, syncope, falls. No bleeding issues reported. taking all meds. 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 Mother No problems noted. 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 Review of Systems Const All systems reviewed & are unremarkable except as noted in HPI and below Denies weakness ENT Denies dizziness Card Reports chest pain (left lateral breast region pain comes and goes), Reports chest pain at rest, Reports chest pain with activity, Denies syncope, Denies rapid heart rate, Denies pedal edema, Denies edema, Denies leg edema, Denies lightheadedness, Denies palpitations, Denies dyspnea, Denies dyspnea on exertion and Denies orthopnea Resp Denies cough, Denies dyspnea and Denies dyspnea on exertion GI Denies hematochezia and Denies change in stool character Musc Denies abnormal gait, Denies muscle cramps, Denies muscle weakness, Denies numbness, Denies radiating pain into limb and Denies tingling Neuro Denies abnormal gait, Denies dizziness, Denies syncope, Denies numbness, Denies tingling and Denies weakness Endo Denies palpitations Physical Exam Vital Signs: Last Vital Signs Pulse 47 L 02/25/24 09:00 BP 132/68 02/25/24 09:00 BMI result Body Mass Index 25.4 Const General: cooperative, healthy appearing, comfortable and no acute distress Orientation/consciousness: patient oriented x3 Neck Neck: Yes normal visual inspection and Yes no JVD Resp Effort & Inspection: normal respiratory effort Auscultation: clear to auscultation bilaterally, no crackles, no rales, no rhonchi and no wheezes Cardio Jugular venous distension: no JVD Rate: bradycardic Rhythm: abnormal rhythm Heart sounds: S1 normal heart sound present, S2 normal heart sound present, no murmurs and no rubs Neuro General: patient oriented x3 Extrem General: Yes normal to inspection and No no pedal edema Psych Appearance: grossly normal Mental Status: mental status grossly normal Speech and movement: Normal speech and movement present Office Procedures EKG Details: Today, read by me, atrial fibrillation, slow ventricular response, right axis, nonspecific ST abnormality noted, rate 47, QTC 405 milliseconds [id number], Complete Assessment & Plan Assessment & Plan (1) Chest discomfort: Code(s): R07.89 - Other chest pain Category: Medical Plan: Report of new intermittent left-sided chest discomfort at rest and during activities. Patient has cardiac risk factors of age, hypertension, prediabetes and chronic kidney disease. EKG done today showing atrial fibrillation with slow ventricular response, rate 47. Denies any discomfort at this time. Will check nuclear stress test to evaluate for ischemia. Plan to call him with test results. Signs and symptoms of angina reviewed with him. Emergency care if needed for symptoms. (2) Chronic atrial fibrillation: Code(s): I48.20 - Chronic atrial fibrillation, unspecified Category: Medical Plan: History of chronic atrial fibrillation. On Diltiazem for heart rate control. Holter monitor done on 11/19/23 for 1.5 days shows atrial fibrillation, average rate 56, 47% of the time heart rate < 60 b/ min, occ PVCs. Last echo in 2020 showing EF 55-60%, mild biatrial enlargement. His diltiazem was then reduced down to 30 mg b.i.d.. EKG done today is showing AFib with slow ventricular response, rate 47. Will have him stop diltiazem. He denies having fatigue or shortness of breath. Prior to next visit will recheck Holter monitor. Continue eliquis 2.5 mg bid for anticoagulation. Labs done on 08/06/23 showed cr 1.8, Hct 32.7 - stable. Cardiology follow up in Jun 2024 mo, sooner if needed (3) Essential hypertension: Code(s): I10 - Essential (primary) hypertension Category: Medical Plan: Well controlled at present. Continue furosemide, lisinopril. Follows with PCP (4) Congestive heart failure (CHF): Code(s): I50.9 - Heart failure, unspecified Category: Medical Plan: No clinical signs of HF on exam. Denies sob. Reports good acivity tolerance. s/s HF reviewed with him. (5) Anticoagulated: Code(s): Z79.01 - [facility] (current) use of anticoagulants Category: Medical Plan: On Eliquis. Tolerating well. Plan Time spent on chart review, documentation, interview, assessment. Orders: Orders CA lexiscan stress w barb 1 Week I48.20 - Chronic atrial fibrillation, unspecified, R07.89 - Other chest pain NM cardiolite stress test 1 Week I48.20 - Chronic atrial fibrillation, unspecified, R07.89 - Other chest pain ECG 3 day holter monitor 05/22/24 I48.19 - Other persistent atrial fibrillation Medications: Discontinued diltiazem HCl Dose reduced Discontinued Reason: Doctor's Order 30 mg PO BID 30 days 60 tabs 5RF Coding Level of Care Code Est Pt Level 4 (16551) Diagnoses Chest discomfort R07.89 Chronic atrial fibrillation I48.20 Essential hypertension I10 Congestive heart failure (CHF) I50.9 Anticoagulated Z79.01 CPT Codes EKG - CPT: 97271-[id number], Complete ([id number]) Time Spent (min) 28
== END 2024-02-25 09:38 | disposition home or self-care (01) ==
PROVIDERS: PCP General Practice; Visit Provider Nurse Practitioner Family
DX: R07.89 Other chest pain (principal); I48.20 Chronic atrial fibrillation, unspecified; I10 Essential (primary) hypertension; I50.9 Heart failure, unspecified; Z79.01 Long term (current) use of anticoagulants
CPT/HCPCS: 93010; 99214

== ENCOUNTER → 2024-02-25 08:48 | Outpatient (BNVA) | payer OTHER, SELFPAY | PROVIDERS: PCP General Practice; Visit Provider Nurse Practitioner Family | DX: R07.89 Other chest pain (principal); I48.20 Chronic atrial fibrillation, unspecified; I11.0 Hypertensive heart disease with heart failure; I50.9 Heart failure, unspecified; Z79.01 Long term (current) use of anticoagulants | CPT/HCPCS: 93005; 99212 ==

== ENCOUNTER 2024-04-14 15:22 | Emergency (ER) | payer OTHER, SELFPAY ==
--- NOTE | ~2024-04-14 | XR_ITS ---
EXAMINATION: XR CHEST CLINICAL INFORMATION: Left-sided chest pain COMPARISON: CT chest 11/17/2022 TECHNIQUE: 2 views of the chest were obtained. FINDINGS: No significant abnormality is noted involving the heart, lungs, mediastinum, bony thorax or soft tissues. Degenerative changes are present in the spine. XR/XR chest 2V IMPRESSION: Unremarkable examination. Electronically signed by: Nasim Romo MD 04/14/2024 08:41 PM EST
--- NOTE | 2024-04-14 15:26 | ECG_ITS ---
Test Reason : chest pain Blood Pressure : / mmHG Vent. Rate : 060 BPM Atrial Rate : 000 BPM P-R Int : 000 ms QRS Dur : 104 ms QT Int : 428 ms P-R-T Axes : 000 -17 006 degrees QTc Int : 428 ms Atrial fibrillation Abnormal ECG When compared with ECG of 20-JAN-2022 16:37, Non-specific change in ST segment in Inferior leads ST no longer depressed in Lateral leads Nonspecific T wave abnormality no longer evident in Lateral leads Referred By: Generic ED Physician Electronically Signed By:RAMON GREER MD
[2024-04-14 15:40] VITALS: BP 144/64; PULSE 58; RESP 16; TEMP 36.4; O2SAT 99; BMI 25.5
[2024-04-14 16:00] LABS: MANUAL DIFF FLAG NO
[2024-04-14 16:02] LABS: Basophils Absolute Auto 0.1 X10*3/uL (0.0-0.2); Basophils Percent Auto 1.1 % (0-2); Eosinophils Absolute Auto 0.1 X10*3/uL (0.0-0.4); Eosinophils Percent Auto 1.6 % (0-4); Hematocrit 32.2 % (42.0-52.0); Hemoglobin 11.2 g/dl (14.0-18.0); Imm Gran Abs Auto 0.01 X10*3/uL (0.00-0.03); Imm Gran Pct Auto 0.2 % (0.0-0.4); Lymphocytes Absolute Auto 1.3 X10*3/uL (1.2-4.9); Lymphocytes Percent Auto 23.7 % (20-40); Mean Corpuscular HGB Conc 34.8 g/dl (31.0-36.0); Mean Corpuscular Hemoglobin 32.8 pg (27.0-33.0); Mean Corpuscular Volume 94.4 fL (80.0-98.0); Mean Platelet Volume 9.6 fL (9.4-12.4); Monocytes Absolute Auto 0.5 X10*3/uL (0.1-1.2); Monocytes Percent Auto 9.6 % (2-11); Neutrophils Absolute Auto 3.6 x10*3/uL (2.0-8.3); Neutrophils Percent Auto 63.8 % (45-73); Platelet Count 183 X10*3/uL (160-400); Red Blood Count 3.41 X10*6/uL (4.60-5.80); Red Cell Distribution Width 13.2 % (11.0-16.0); White Blood Count 5.6 X10*3/uL (4.8-10.8)
[2024-04-14 16:07] LABS: INTERNATIONAL NORM RATIO 1.1 (0.9-1.1)
[2024-04-14 16:24] LABS: Alanine Aminotransferase 9 U/L (0-40); Albumin Level 4.1 g/dL (3.5-5.0); Alkaline Phosphatase 57 U/L (39-117); Anion Gap 15 (12-20); Aspartate Amino Transferase 12 U/L (5-37); Bilirubin Total 0.6 mg/dL (0.0-1.0); Blood Urea Nitrogen 52 mg/dL (9-16); Calcium 9.4 mg/dL (8.4-10.2); Carbon Dioxide 21 mmol/L (22-29); Chloride 108 mmol/L (96-108); Creatinine Clr Calc Pharmacy 21.9; Estimated Glomerular Filt Rate 26; Glucose Random 125 mg/dL (60-115); Magnesium 1.9 mg/dL (1.6-2.6); Potassium 3.5 mmol/L (3.3-5.1); Sodium 140 mmol/L (135-145); Total Protein 7.5 g/dL (6.5-8.0)
[2024-04-14 16:25] LABS: Troponin-I High Sensitivity 18.2 ng/L (<3.5-35.0)
[2024-04-14 18:24] LABS: Troponin-I High Sensitivity 20.7 ng/L (<3.5-35.0)
[2024-04-14 18:48] VITALS: BP 137/71; PULSE 68; RESP 20; TEMP 36.5; O2SAT 100
--- NOTE | 2024-04-14 18:53 | ED.CHESTPAIN ---
HPI - Chest Pain General Chief Complaint: Chest Pain Stated Complaint: Chest pain Time Seen by Provider: 04/14/24 18:53 History of Present Illness ED Provider: April DARNELL narrative: The patient is an 83-year-old male with a history of chronic atrial fibrillation on apixaban who also has a history of chronic renal insufficiency. He says that he has had some intermittent left-sided chest pains over the last 3 days or possibly longer. Today he drove himself to the emergency room for evaluation. At the time that I saw him the patient says that his pain had resolved. He says the pain comes and goes. No associated shortness of breath. No associated fever, sweats, chills. No associated cough or sputum. No diaphoresis. Related Data Home Medications ?Medication ?Instructions ?Recorded ?Confirmed epinephrine 0.3 mg/0.3 mL 0.3 mg IM ONCE 05/27/20 02/25/24 injection, auto-injector flunisolide 25 mcg (0.025 %) nasal 2 spray intranasal BID 05/27/20 02/25/24 spray lisinopril 20 mg tablet 20 mg PO DAILY 05/27/20 02/25/24 pravastatin 40 mg tablet 40 mg PO BEDTIME 08/31/22 02/25/24 furosemide 20 mg tablet 20 mg PO BID 08/30/23 02/25/24 omeprazole 20 mg tablet,delayed 20 mg PO DAILY 08/30/23 02/25/24 release Previous Rx's ?Medication ?Instructions ?Recorded apixaban 2.5 mg tablet (Eliquis) 2.5 mg PO BID #180 tabs 08/30/23 Allergies Allergy/AdvReac Type Severity Reaction Status Date / Time shrimp Allergy Intermediate SWELLING Verified 04/14/24 15:42 Review of Systems Review of Systems: Yes all other systems are reviewed and are negative ON LICENSE OF [facility] Past Medical History Medical History Atrial flutter Depression Pulmonary nodules GERD (gastroesophageal reflux disease) Other and unspecified hyperlipidemia Vitamin D deficiency BPH (benign prostatic hyperplasia) Chronic kidney disease, stage 3 Essential hypertension Pre-diabetes Surgical History History of umbilical hernia repair Family History Family History Father No problems noted. Mother No problems noted. Sister Cancer Social History Social History Household Members: None Housing: Apartment Are you a primary nonfarm animal caretaker to a significant other at home: No Do you presently have visiting nurse or other home services: No Alcohol intake: former Year quit: 2000 Patient Tobacco Use Status: Former Tobacco user Tobacco use type: Cigarette Years Smoked: 40 +/- Smoked in Last 30 Days: No Second Hand Smoke Exposure: No Use of substances other than those prescribed or required for medical reasons: No Advance Directives: No Advance Directives Information Provided: Yes Advance Directives Date on File: 05/03/20 Do you have a plan to hurt others: No Plan Current occupational status: 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 He looks mildly chronically ill. He does not appear acutely ill in any way. HEENT: Other: Face is symmetrical. Mucous membranes moist. Eyes: Other: Pupils are round equal, conjunctivae are clear, extraocular movements intact Neck: Neck: Yes no JVD Chest: Other: No chest wall tenderness Resp: Effort & Inspection: normal respiratory effort Auscultation: clear to auscultation bilaterally Cardio: Other: The patient has an irregular rhythm. His rate is normal. No significant murmur. GI: Other: Abdomen is soft and nontender Skin: Other: Skin is dry and unremarkable Neuro: Other: The patient is awake and alert. Face is symmetrical. Speech is clear. He moves his extremities symmetrically and appropriately. He seems grossly neurologically intact. Extrem: Other: No calf swelling or tenderness. Medical Decision Making Medical Decision Making MDM Narrative: The patient is an 83-year-old male with a history of chronic atrial fibrillation on anticoagulation who describes a very vague history of some left-sided chest pain that he has had for 3 days but which has resolved spontaneously. His EKG shows atrial fibrillation but does not really show acute ischemic changes. His troponins are flat. His chest x-ray is clear. He looks well. He has a creatinine of 2.38 and a BUN of 52. Although these numbers are worse than his most recent kidney numbers he has had similar values in the past (on 10/06/2022 his creatinine was 2.56 in his BUN was 61). I do not think he requires acute intervention for these values today. I think he may be discharged and should follow up with his PCP. Lab Data 04/14/24 15:56 04/14/24 15:56 Labs: Lab Results 04/14/24 04/14/24 04/14/24 Range/Units 15:56 17:59 19:03 WBC 5.6 (4.8-10.8) X10*3/uL RBC 3.41 L (4.60-5.80) X10*6/uL Hgb 11.2 L (14.0-18.0) g/dl Hct 32.2 L (42.0-52.0) % MCV 94.4 (80.0-98.0) fL MCH 32.8 (27.0-33.0) pg MCHC 34.8 (31.0-36.0) g/dl RDW 13.2 (11.0-16.0) % Plt Count 183 (160-400) X10*3/uL MPV 9.6 (9.4-12.4) fL Immature Gran % (Auto) 0.2 (0.0-0.4) % Neut % (Auto) 63.8 (45-73) % Lymph % (Auto) 23.7 (20-40) % Nicollet % (Auto) 9.6 (2-11) % Eos % (Auto) 1.6 (0-4) % Baso % (Auto) 1.1 (0-2) % Lymph # (Auto) 1.3 (1.2-4.9) X10*3/uL Nicol[place] # (Auto) 0.5 (0.1-1.2) X10*3/uL Eos # (Auto) 0.1 (0.0-0.4) X10*3/uL Baso # (Auto) 0.1 (0.0-0.2) X10*3/uL Abs Immat Gran (auto) 0.01 (0.00-0.03) X10*3/uL Absolute Neuts (auto) 3.6 (2.0-8.3) x10*3/uL Absolute Nucleated RBC 0.000 (0.0-0.012) X10*3/uL Nucleated RBC % (auto) 0.0 (0.0-0.2) /100WBC PT 13.0 H (10.9-12.4) SEC INR 1.1 (0.9-1.1) Sodium 140 (135-145) mmol/L Potassium 3.5 (3.3-5.1) mmol/L Chloride 108 (96-108) mmol/L Carbon Dioxide 21 L (22-29) mmol/L Anion Gap 15 (12-20) BUN 52 H (9-16) mg/dL Creatinine 2.38 H (0.5-1.4) mg/dL Estim Creat Clear Calc 21.9 Estimated GFR 26 POC Glucose 103 (60-115) mg/dL Random Glucose 125 H (60-115) mg/dL Calcium 9.4 (8.4-10.2) mg/dL Magnesium 1.9 (1.6-2.6) mg/dL Total Bilirubin 0.6 (0.0-1.0) mg/dL AST 12 (5-37) U/L ALT 9 (0-40) U/L Alkaline Phosphatase 57 (39-117) U/L Troponin I High Sens 18.2 20.7 (<3.5-35.0) ng/L Total Protein 7.5 (6.5-8.0) g/dL Albumin 4.1 (3.5-5.0) g/dL Independent Interpretation I performed an independent interpretation of an: EKG Interpretation: EKG at 15:22 shows atrial fibrillation at 60 beats per minute. No definite ischemic changes. Discharge Plan Discharge Clinical Impression: Left-sided chest pain, Chronic atrial fibrillation, Chronic renal insufficiency Patient Disposition: Home, Self-Care Additional Instructions: Your testing in the emergency room today is reassuring from the point of view of your chest pain. There is no sign of a heart attack or any other dangerous process causing your left-sided chest pain. Your kidney function is slightly worse today than it was when it was last checked. Please follow up with your regular doctor to discuss your kidney function. Otherwise in the meantime please continue your regular medications. Call your regular doctor's office on Wednesday to make a follow up appointment to discuss your symptoms today and your kidney function. Return to the emergency room if significantly worse. Prescriptions: No Action Eliquis 2.5 mg tablet 2.5 mg PO BID Qty: 180 3RF lisinopril 20 mg tablet 20 mg PO DAILY flunisolide 25 mcg (0.025 %) spray,non-aerosol 2 spray intranasal BID epinephrine 0.3 mg/0.3 mL auto-injector 0.3 mg IM ONCE pravastatin 40 mg tablet 40 mg PO BEDTIME furosemide 20 mg tablet 20 mg PO BID omeprazole 20 mg tablet,delayed release (DR/EC) 20 mg PO DAILY Referrals: [facility] [Provider Group] (Left sided chest pain. Chronic renal insufficiency.) Ml Bess MD [Physician] - (chronic renal insufficiency) Interventions: ED Discharge Assessment Last Done: 04/14/24 20:36 Discharge Date/Time: 04/14/24 20:37 Print Language: Vietnamese
[2024-04-14 19:11] LABS: Glucose, Whole Blood 103 mg/dL (60-115)
[2024-04-14 20:00] VITALS: BP 143/59; PULSE 70; RESP 14; TEMP 36.7; O2SAT 98
[2024-04-14 20:36] VITALS: BP 143/59; PULSE 70; RESP 14; TEMP 36.7; O2SAT 98
== END 2024-04-14 20:37 | disposition home or self-care (01) ==
PROVIDERS: Physician Assistant; Emergency Provider Emergency Medicine
DX: R07.9 Chest pain, unspecified (principal); I48.20 Chronic atrial fibrillation, unspecified; E11.22 Type 2 diabetes mellitus with diabetic chronic kidney disease; I12.9 Hypertensive chronic kidney disease with stage 1 through stage 4 chronic kidney disease, or unspecified chronic kidney disease; N18.30 Chronic kidney disease, stage 3 unspecified; E78.5 Hyperlipidemia, unspecified; Z79.01 Long term (current) use of anticoagulants; Z79.02 Long term (current) use of antithrombotics/antiplatelets; Z87.891 Personal history of nicotine dependence
CPT/HCPCS: 36415; 71046; 80053; 82947; 83735; 84484; 85025; 85610; 93005; 99283; 99285

== ENCOUNTER → 2024-04-14 15:26 | Outpatient (BNV) | payer OTHER, SELFPAY | PROVIDERS: Emergency Provider Emergency Medicine; Visit Provider Internal Medicine Cardiovascular Disease | DX: R07.9 Chest pain, unspecified (principal); I48.91 Unspecified atrial fibrillation; R94.31 Abnormal electrocardiogram [ECG] [EKG] | CPT/HCPCS: 93010 ==

== ENCOUNTER 2024-04-24 10:54 | Outpatient (REF) | payer OTHER, SELFPAY ==
[2024-04-24 12:18] LABS: Anion Gap 12 (12-20); Blood Urea Nitrogen 27 mg/dL (9-16); Calcium 9.4 mg/dL (8.4-10.2); Carbon Dioxide 25 mmol/L (22-29); Chloride 109 mmol/L (96-108); Estimated Glomerular Filt Rate 38; Glucose Random 96 mg/dL (60-115); Potassium 3.9 mmol/L (3.3-5.1); Sodium 142 mmol/L (135-145)
== END 2024-04-24 10:55 | disposition home or self-care (01) ==
LOC: HO.HHCL 10:54
PROVIDERS: Visit Provider General Practice
DX: N18.32 Chronic kidney disease, stage 3b (principal)
CPT/HCPCS: 36415; 80048

== ENCOUNTER 2024-06-22 08:18 | Outpatient (AMB) | payer OTHER, SELFPAY ==
--- OUTSIDE RECORDS SUMMARY | 2024-06-22 08:22 | XMS_ITS | Data Portability ---
Author Organization [email or web address] [facility], [facility] [employer] Address [address] [place] [id number] Care Team Providers Care Can Piler Name Role Phone [employer] Referring Provider [facility] Referring Provider [phone] Assessment Encounter Date Assessment Date Assessment LastModified by Organization Details LastModified Time 05/14/2023 05/14/2023 service called for fatigue found 82 yom hx anemia +home COVID loss appettie 4d illness denies fevers, chills poor PO intake VSS reportedly tired appearing, dry skin, dry mucus membranes POC labs: BUN/Cr 49/2.5, denies history kidney disease #Acute COVID19 paxlovid given age, severity of illness IVF 1L service will return to f/up [email or web address] Not available 05/14/2023 17:30:29 Plan of Treatment Reminders Order Date Submit Date Provider Last Modified By Organization Details Last Modified Time Details Appointments None recorded. Lab None recorded. Referral None recorded. Procedures None recorded. Surgeries None recorded. Imaging None recorded. Medication Orders Paxlovid 300 mg (150 mg x 2)-100 mg tablets in a dose pack 2022 023 [facility] #[id number], [address], [place], [address], 17:15:59 Patient TargetsNo targets recorded. Patient InstructionsNo instructions recorded. Reason for Referral None Reported. Medical Equipment None Reported. Medications Name Sig Start Date Stop Date Status Note LastModified by Organization Details LastModified Time cetirizine 10 mg tablet TAKE 1 TABLET (10 MG) BY MOUTH IN THE MORNING FOR CONGESTION active Not Available Not Available N ot Available pravastatin 40 mg tablet TOME AGUEDA TABLETA TODOS LOS D AL ACOSTARSE active Not Available Not Available No t Available diltiazem CD 180 mg capsule,exte nded release 24 hr TOME 2 CAPSULAS POR VIA ORAL TODOS LOS PÉREZ active Not Available Not Available No t Available lisinopril 20 mg tablet TOME AGUEDA TABLETA TOS LOS D active Not Available Not Available No t Available acetaminophe n ER 650 mg tablet,exten ded release TAKE 1 TABLET BY MOUTH EVERY 8 (EIGHT) HOURS IF NEEDED FOR MILD PAIN. DO NOT CRUSH, CHEW, OR SPLIT. active Not Available Not Available No t Available omeprazole 20 mg capsule,olegario yed release TAKE 1 CAPSULE BY ORAL ROUTE EVERY MORNING NEEDED active Not Available Not Available No t Available furosemide 20 mg tablet TOME AGUEDA TABLETA DOS VECES AL D A active Not Available Not Available No t Available ferrous sulfate 325 mg (65 mg iron) tablet,delay ed release TOME AGUEDA TABLETA TO PÉREZ WITH ORANGE JUICE active Not Available Not Available No t Available fluticasone propionate 50 mcg/actuatio n nasal spray,suspen bravo SPRAY 2 SPRAYS INTO EACH NOSTRIL D active Not Available Not Available No t Available hydrochlorot hiazide 12.5 mg tablet TOME AGUEDA TABLETA TO LOS D active Not Available Not Available No t Available Eliquis 2.5 mg tablet TOME AGUEDA TABLETA DOS VECES AL D A active Not Available Not Available No t Available Paxlovid 300 mg (150 mg x 2)-100 mg tablets in a dose pack TAKE 1 DOSE PK TWICE A DAY BY ORAL ROUTE FOR 5 DAYS. active Not Available Not Available No t Available Vitals Date Recorded Body weight Heart rate Respiratory rate Body height Oxygen saturation Oxygen saturation in Arterial blood by Pulse oximetry Body temperature Systolic blood pressure Diastolic blood pressure Provider Name and Address Organization Details Last Updated DateTime 3 23928.1 28 g 82 /min 16 /min 170.18 cm 100 % 100 % 97.8 [degF] 130 mm[Hg] 71 mm[Hg] Not Available [facility] - production 3 16:50:06 Social History None recorded. Functional Status None recorded. Mental Status None recorded. Family History Nothing Reported. Medical History No medical history recorded. Past Encounters Encounter ID Performer Location Encounter Start Date Encounter Closed Date Diagnosis/Indication Diagnosis SNOMED-CT Code Diagnosis ICD10 Code Diagnosis Note [id number] Ronda Crisostomo MD Main - [address] [phone] 05/14/2023 16:49:55 05/17/2023 16:47:56 COVID-19 095173602 U07.1 Health Concerns Section Related Observation LastModified by Organization Dimas ls LastModified Time None Recorded Concern Status LastModified by Organization Details LastModified Time None Recorded Advance Directives Directive None Recorded Payers Encounter Date Sequence Insurance Name Policy Number Policy Humphrey Covered Member ID Humphrey Member ID Guarantor Name 05/14/2023 1 [facility] - DOS ON OR AFTER 2022 - DUAL ELIGIBLE - [employer] AND ONE CARE (MEDICARE REPLACEMENT/AD VANTAGE - HMO) Ras Pavon [id number] Ras Pavon Notes Date Note Type Note Provider Name and Address Organization Details Recorded Time 05/14/2023 text/html HPI: HX: CKD, anemia. Patient with COVID + home test this morning. Has had diarrhea x 3 days and loss of appetite. PO intake poor .................. .................. .................. .................. .................. .................. .................. ............... [facility] Nursing Assessment: Comments: Per requestor- Home evaluation of elderly male with + COVID today. Diarrhea x 3 days with loss of appetite only. No fever or URI symptoms. Treatment as indicated. .................. .................. .................. .................. .................. .................. .................. ............... Help Desk Analyst Note From Toñito Leigh: [facility] 3 arrives to find 82-year-old male seated on chair. Patient states he has experienced diarrhea and a lack of appetite since Wednesday. Patient tested positive with a rapid test for Covid this morning. Patient also reports general fatigue. Patient denies any further symptoms. Vital signs taken as noted Covid positive, flu negative. 20 gauge IV access established in right AC. POC blood work drawn and analyzed. [facility] consulted, orders received for 500 mL of normal saline, reassessment and repeat, 500 if needed. Orders fulfilled, 1 L of normal saline given IV. IV discontinued. Prescription sent to pharmacy. [facility] 3 clear . .................. .................. .................. .................. .................. .................. .................. ............... Disposition: Fulfilled Ronda Crisostomo MD [address] [facility],[address], [place], [address], [employer] - Housekeep 05/14/2023 17:30:41
[2024-06-22 08:49] VITALS: BP 138/62; PULSE 57; BMI 25.8
--- NOTE | 2024-06-22 08:49 | A.OFFVIS_ITS ---
Vital Signs 06/22/24 08:49 Height 5 ft 7 in Weight 164 lb 14.492 oz BMI 25.8 BP 138/62 Blood Pressure Location Lt brachial Position Sitting Pulse 57 Pulse Source Pulse Oximeter Intake Visit Reasons: 6m follow up Dried Yeast Supervisor Required: No Equipment Cleaner And Tester: Equipment Cleaner And Tester Present Allergies shrimp Allergy (Intermediate, Verified 06/22/24 08:52) SWELLING Medication List - Last Reconciled 06/22/24 by Dania Quinonez, KWADWO-C apixaban (Eliquis) 2.5 mg PO BID epinephrine 0.3 mg IM ONCE flunisolide 2 sprays intranasal BID furosemide 20 mg PO BID lisinopril 20 mg PO DAILY omeprazole 20 mg PO DAILY pravastatin 40 mg PO BEDTIME HPI HPI 6m follow up: Details: Ras is an 83 yo male with PMH of HTN, preDM, CKD, atrial fibrillation/ flutter who reported chest discomfort on last visit. A nuclear stress test was ordered however not completed by him. He also was noted to have AFib with slow ventricular response. His diltiazem was stopped, Holter monitor ordered however not completed. He was seen in the ER in April with chest discomfort and ruled out for ACS. He now presents for follow up. Today he states he has been feeling well since his ER visit. He tells me now he no longer gets any chest discomfort. Prior symptom has fully resolved. No shortness of breath, PND, orthopnea or edema. No heart palpitations, lightheadedness, presyncope, syncope, falls. No bleeding issues reported. He says his PCP told him to stop Eliquis. Family member present and assisting with Omani interpretation. [facility] Medical History Atrial flutter Depression Pulmonary nodules GERD (gastroesophageal reflux disease) Other and unspecified hyperlipidemia Vitamin D deficiency BPH (benign prostatic hyperplasia) Chronic kidney disease, stage 3 Essential hypertension Pre-diabetes Surgical History History of umbilical hernia repair Family History Father No problems noted. Mother No problems noted. 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 Review of Systems Const All systems reviewed & are unremarkable except as noted in HPI and below ENT Denies dizziness Card Denies chest pain, Denies chest pain at rest, Denies chest pain with activity, Denies rapid heart rate, Denies pedal edema, Denies edema, Denies leg edema, Denies lightheadedness, Denies palpitations, Denies dyspnea, Denies dyspnea on exertion and Denies orthopnea Resp Denies cough, Denies dyspnea and Denies dyspnea on exertion GI Denies hematochezia and Denies change in stool character Musc Denies abnormal gait, Denies limited range of motion, Denies muscle cramps, Denies muscle weakness, Denies numbness, Denies radiating pain into limb, Denies stiffness and Denies tingling Neuro Denies abnormal gait, Denies dizziness, Denies numbness and Denies tingling Endo Denies palpitations Physical Exam Vital Signs: BMI result Body Mass Index 25.8 Const General: cooperative, healthy appearing, comfortable and no acute distress Orientation/consciousness: patient oriented x3 Neck Neck: Yes normal visual inspection and Yes no JVD Resp Effort & Inspection: normal respiratory effort Auscultation: clear to auscultation bilaterally, no crackles, no rales, no rhonchi and no wheezes Cardio Jugular venous distension: no JVD Rate: bradycardic Rhythm: abnormal rhythm Heart sounds: S1 normal heart sound present, S2 normal heart sound present, no murmurs and no rubs Neuro General: patient oriented x3 Extrem General: Yes normal to inspection and No no pedal edema Psych Appearance: grossly normal Mental Status: mental status grossly normal Speech and movement: Normal speech and movement present Office Procedures EKG Details: Today, read by me, atrial fibrillation with slow ventricular response, rate 57, QTC 430 millisecond [id number], Complete Assessment & Plan Assessment & Plan (1) Chest discomfort: Code(s): R07.89 - Other chest pain Category: Medical Plan: On last visit reported new intermittent left-sided chest discomfort at rest and during activities. Patient has cardiac risk factors of age, hypertension, prediabetes and chronic kidney disease. A nuclear stress test was ordered however he did not complete it. He says he was never called. He was in the ER in April with chest discomfort and ruled out for ACS. Since then he tells me his symptom has fully resolved. Today he reports no chest discomfort at rest or with activity. He says he has been feeling good lately. His last echocardiogram was done in 2020. At this time will update an echo to reassess EF and wall motion. Will cancel order for stress test as he is now asymptomatic. Signs and symptoms of angina reviewed with him. Emergency care if needed for recurrent symptoms. Cardiology office visit 6 months or sooner if needed. (2) Chronic atrial fibrillation: Code(s): I48.20 - Chronic atrial fibrillation, unspecified Category: Medical Plan: History of chronic atrial fibrillation. Holter monitor done on 11/19/23 for 1.5 days shows atrial fibrillation, average rate 56, 47% of the time heart rate < 60 b/ min, occ PVCs. Last echo in 2020 showing EF 55-60%, mild biatrial enlargement. He was previously on Diltiazem for heart rate control however it was stopped last visit due to low heart rate. EKG done today is showing AFib with slow ventricular response, rate 57. He denies having fatigue or shortness of breath. Will recheck Holter monitor to assess average heart rate and for any significant pauses. He tells me he is off Eliquis at this time as directed by his PCP. Informed him the Eliquis is necessary in order to reduce his stroke risk with his atrial fibrillation. Will send refill for eliquis 2.5 mg bid for anticoagulation. Labs done on 04/24/24 showed cr 1.72, 04/14/24 Hct 32.2 - stable. Cardiology follow up in our office 6 months, sooner if needed. Plan to call him with test results. (3) Essential hypertension: Code(s): I10 - Essential (primary) hypertension Category: Medical Plan: Well controlled at present. Continue furosemide, lisinopril. Follows with PCP (4) Congestive heart failure (CHF): Code(s): I50.9 - Heart failure, unspecified Category: Medical Plan: No clinical signs of HF on exam. Denies sob. Reports good acivity tolerance. s/s HF reviewed with him. (5) Anticoagulated: Code(s): Z79.01 - jail (current) use of anticoagulants Category: Medical Plan: On Eliquis. Tolerating well. (6) Chronic kidney disease, stage 3: Code(s): N18.30 - Chronic kidney disease, stage 3 unspecified Category: Medical Plan: He had been following with Nephrology due to his chronic kidney disease but says he has not been seen in over a year. 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 Will send referral Plan Time spent on chart review, documentation, interview, assessment. Orders: Orders CA echo transthoracic complete Today I10 - Essential (primary) hypertension, I48.20 - Chronic atrial fibrillation, unspecified Referrals Nephrology Referral I10 - Essential (primary) hypertension, N18.30 - Chronic kidney disease, stage 3 unspecified Medications: Refilled apixaban (Eliquis) 2.5 mg PO BID 180 tabs 3RF Coding Level of Care Code Est Pt Level 4 (85895) Complex EM visit Add On G2211 Diagnoses Chest discomfort R07.89 Chronic atrial fibrillation I48.20 Essential hypertension I10 Congestive heart failure (CHF) I50.9 Anticoagulated Z79.01 Chronic kidney disease, stage 3 N18.30 CPT Codes EKG - CPT: 82425-[id number], Complete ([id number]) Time Spent (min) 30
== END 2024-06-22 09:22 | disposition home or self-care (01) ==
PROVIDERS: PCP General Practice; Visit Provider Nurse Practitioner Family
DX: R07.89 Other chest pain (principal); I48.20 Chronic atrial fibrillation, unspecified; I10 Essential (primary) hypertension; I50.9 Heart failure, unspecified; Z79.01 Long term (current) use of anticoagulants; N18.30 Chronic kidney disease, stage 3 unspecified
CPT/HCPCS: 93010; 99214; G2211

== ENCOUNTER → 2024-06-22 08:18 | Outpatient (BNVA) | payer OTHER, SELFPAY | PROVIDERS: PCP General Practice; Visit Provider Nurse Practitioner Family | DX: I13.0 Hypertensive heart and chronic kidney disease with heart failure and stage 1 through stage 4 chronic kidney disease, or unspecified chronic kidney disease (principal); I48.20 Chronic atrial fibrillation, unspecified; I50.9 Heart failure, unspecified; R07.89 Other chest pain; N18.30 Chronic kidney disease, stage 3 unspecified; Z79.01 Long term (current) use of anticoagulants; Z87.891 Personal history of nicotine dependence | CPT/HCPCS: 93005; 99212 ==

== ENCOUNTER → 2024-07-14 09:38 | Outpatient (REF) | payer OTHER, SELFPAY | LOC: HO.CARD 09:38 | PROVIDERS: Visit Provider Nurse Practitioner Family | DX: I48.20 Chronic atrial fibrillation, unspecified (principal); I10 Essential (primary) hypertension ==

== ENCOUNTER → 2024-07-14 09:45 | Outpatient (BNV) | payer OTHER, SELFPAY | PROVIDERS: Visit Provider Internal Medicine Cardiovascular Disease | DX: I51.7 Cardiomegaly (principal); I27.20 Pulmonary hypertension, unspecified | CPT/HCPCS: 93244; 93306 ==

== ENCOUNTER 2024-07-21 14:46 | Outpatient (AMB) | payer OTHER, SELFPAY ==
--- OUTSIDE RECORDS SUMMARY | 2024-07-21 14:48 | XMS_ITS | Encounter Summary ---
Author Organization [facility], Address [address] [place] [address] Phone Care Team Providers Care Creche Attendant Name Role Phone Ml Bess MD Primary Care Provider + [phone] Encounter Details Date Type Department Care Team (Late st Contact Info) Description 07/30/2022 Documentation Only [facility], [address] [place] [id number] Heather Isaacs PA Social History Tobacco Use Types Packs/Day Years Used Date Smoking Tobacco: Former Cigarettes Smokeless Tobacco: Never Alcohol Use Standard Drinks/Week Comments No 0 (1 standard drink = 0.6 oz pure alcohol) Alcoholic Drinks/day: Occasional social drink Sex and Gender Information Value Date Recorded Sex Assigned at Not on file Legal Sex Male 4:36 PM EST Gender Identity Not on file Sexual Orientation Not on file documented as of this encounter Plan of Treatment Not on file documented as of this encounter Visit Diagnoses Not on filedocumented in this encounter Care Teams Creche Attendant Relationship Specialty Start Date End Date Ml Bess MD [address] [place] [address] PCP - General Barrow Worker Helper 05/04/23 documented as of this encounter
--- OUTSIDE RECORDS SUMMARY | 2024-07-21 14:48 | XMS_ITS | Clinical Summary ---
Author Organization [facility], Address [address] [place] [address] [place] [address] Phone Care Team Providers Care [employer] Reading Teacher Name Role Phone Ml Bess MD Primary Care Provider Allergies Active Allergy Reactions Criticality Noted Date Comments Shellfish-Derived Products 2 Crab Lobster Shrimp Medications lisinopril (PRINIVIL,ZESTR IL) 20 MG tablet Take 1 tablet by mouth 1 (one) time each day 7 Active omeprazole OTC (PriLOSEC OTC) 20 MG EC tablet Take 1 tablet by mouth 1 (one) time each day 8 Active pravastatin (PRAVACHOL) 40 MG tablet Take 1 tablet by mouth 1 (one) time each day 7 Active acetaminophen (TYLENOL) 500 MG tablet Take by mouth every 6 (six) hours if needed for mild pain Active aspirin (ST LATHA) 81 MG EC tablet Take 81 mg by mouth 1 (one) time each day Active apixaban (ELIQUIS) 5 MG tablet Take 5 mg by mouth 2 (two) times a day Active tamsulosin (FLOMAX) 0.4 MG 24 hr capsule Take 0.4 mg by mouth 1 (one) time each day Active ergocalciferol 1.25 MG (65168 UT) capsule 1 Active dilTIAZem CD (CARDIZEM CD) 180 MG 24 hr capsule Take 360 mg by mouth 1 (one) time each day Active ferrous sulfate 325 (65 Fe) MG EC tablet Take 325 mg by mouth in the morning and 325 mg at noon and 325 mg in the evening. Take with meals. Do not crush, chew, or split. . Active senna (SENOKOT) 8.6 MG tablet Take 1 tablet by mouth 1 (one) time each day Active EPINEPHrine (EPIPEN) 0.3 MG/0.3ML injection syringe Inject 1 Syringe into the shoulder, thigh, or buttocks 1 (one) time Active fluticasone (FLONASE) 50 MCG/ACT nasal spray Administer 2 sprays into each nostril 1 (one) time each day Active flunisolide (NASALIDE) 25 MCG/ACT (0.025%) solution Administer 2 sprays into each nostril every 12 (twelve) hours Active hydroCHLOROthia zide 12.5 MG tablet Take 12.5 mg by mouth 1 (one) time each day Active lidocaine (XYLOCAINE) 5 % ointment Apply topically 3 (three) times a day Active omega-3 acid ethyl esters (LOVAZA) 1 g capsule Take 2 g by mouth in the morning and 2 g in the evening. Active Cholecalciferol (Vitamin D3) 25 MCG tablet Take 1 tablet by mouth 1 (one) time each day Active celecoxib (CeleBREX) 200 MG capsule Take 200 mg by mouth 1 (one) time each day 2 Active furosemide (LASIX) 20 MG tablet Take 2 tablets (40 mg total) by mouth in the morning and 2 tablets (40 mg total) in the evening. 3 Active Active Problems Problem Noted Date Diagnosed Date Congestive heart failure 08/03/2022 Hypervolemia 08/03/2022 Vitamin D deficiency, not otherwise specified Stage 3b chronic kidney disease 07/22/2020 Aquired multiple cysts of kidney 01/01/2020 Essential (primary) hypertension 12/28/2019 Hypertensive nephrosclerosis 12/28/2019 Resolved Problems Problem Noted Date Diagnosed Date Resolved Date Flank pain 01/01/2020 01/17/2021 Anemia 12/28/2019 01/17/2021 Hyperlipidemia 12/28/2019 01/17/2021 Hypertensive disorder 12/28/20192021 Microalbuminuria 12/28/2019 01/17/2021 Immunizations Name Administration Dates Next Due Influenza Split High Dose Preservative Free IM 1 07/06/2015 Influenza, Trivalent, Adjuvanted 02/23/2019 Pneumococcal Conjugate 13-Valent 05/02/2019 Zoster 01/24/2019 Family History Relation Status Comments Father Unknown Mother Unknown Social History Tobacco Use Types Packs/Day Years Used Date Smoking Tobacco: Former Cigarettes Smokeless Tobacco: Never Tobacco Cessation:Counseling Given: Not Answered Alcohol Use Standard Drinks/Week Comments No 0 (1 standard drink = 0.6 oz pure alcohol) Alcoholic Drinks/day: Occasional social drink Sex and Gender Information Value Date Recorded Sex Assigned at Not on file Legal Sex Male 4:36 PM EST Gender Identity Not on file Sexual Orientation Not on file Last Filed Vital Signs Vital Sign Reading Time Taken Comments Blood Pressure 128/52 08/03/2022 1:24 PM EST Pulse 55 04/29/2022 7:50 AM EST Temperature - - Respiratory Rate 16 03/22/2018 12:00 PM EDT Oxygen Saturation 97% 04/29/2022 7:50 AM EST Inhaled Oxygen Concentration - - Weight 83.3 kg (183 lb 9.6 oz) 08/03/2022 1:24 P M EST Height 170.2 cm (5' 7 ) 08/03/2022 1:24 PM EST Body Mass Index 28.76 08/03/2022 1:24 PM EST Plan of Treatment Health Maintenance Due Date Last Done Comments Influenza Vaccine (#1) 2024 , 02/12/2020, 02/23/2019, Additional history exists Pneumococcal Vaccine: 65+ Years Completed 05/02/2019, 03/14/2015, 09/30/2009 Hepatitis B Vaccine Aged Out No longe r eligible based on patient's age to complete this topic Insurance [facility] ONE CARE DUAL SNP ([id number]) [facility] Care Teams Middle School Reading Teacher Relationship Specialty Start Date End Date Ml Bess MD [address] [place] [address] PCP - General General Counselor 05/04/23
--- OUTSIDE RECORDS SUMMARY | 2024-07-21 14:48 | XMS_ITS | Encounter Summary ---
Author Organization [employer] Address [address] [facility] [address] [place] [address] Care Team Providers Care Client Partner Name Role Phone Ml Bess MD Primary Care Provider [phone] Encounter Details Date Type Department Care Team (Late st Contact Info) Description 04/26/2023 Telephone [facility] MEDICINE [address], [place] [phone] Ml Bess MD [address] [place], [place] [phone] Social History Tobacco Use Types Packs/Day Years Used Date Smoking Tobacco: Never Smokeless Tobacco: Never Alcohol Use Standard Drinks/Week Comments Never 0 (1 standard drink = 0.6 oz pur e alcohol) Housing Stability Answer Date Recorded What is your housing situation today? I have suha crowell 03/31/[address] you li ve. Do you have problems with any of the following? None of the above 03/31/2023 Food Insecurity Answer Date Recorded Within the past 12 months, y ou worried that your food would run out before you got money to buy more: Never True 03/31/2023 Within the past 12 months,th e food you bought just didn't last and you didn't have enough money to get more: Never True Transportation Answer Date Recorded In the past 12 months, has l ack of transportation kept you from medical appts, meetings, work or from getting things needed for daily living? Yes, it has kept me from medical appointments or getting medications. 03/15/2023 Utilities Answer Date Recorded In the past 12 months, has t he electric, gas, oil or water company threatened to shut off services in your home? No 03/31/2023 Depression Answer Date Recorded Patient Health Questionnaire-2 Score 0 10/07/2022 Sex and Gender Information Value Date Recorded Sex Assigned at Male 04/06/2022 10:16 AM EDT Legal Sex Male 10:16 AM EDT Gender Identity Male 04/06/2022 10:16 AM EDT Sexual Orientation Straight 04/06/2022 10 :16 AM EDT documented as of this encounter Plan of Treatment Not on file documented as of this encounter Visit Diagnoses Not on filedocumented in this encounter Care Teams Client Partner Relationship Specialty Start Date End Date Ml Bess MD [address] [place] [id number] PCP - General Family Medicine 01/28/21 documented as of this encounter
--- OUTSIDE RECORDS SUMMARY | 2024-07-21 14:48 | XMS_ITS | Data Portability ---
Author Organization [employer] [facility], Or in - [employer] Address [address] [place] [phone] Care Team Providers Care Hansard Reporter Name Role Phone [facility] Referring Provider [facility]MERLY [facility] Referring Provider Assessment Encounter Date Assessment Date Assessment LastModified [...] tablets in a dose pack [address] [facility] #[id number], [address] [facility], [place], [address], 17:15:59 Patient TargetsNo targets recorded. Patient InstructionsNo [...] Address Organization Details Last Updated DateTime 3 29653.1 28 g 82 /min 16 /min 170.18 cm 100 % 100 % 97.8 [degF] 130 mm[Hg] 71 mm[Hg] Not Available [employer] production 3 16:50:06 Social History None recorded. Functional Status None recorded. Mental Status None recorded. Family History Nothing Reported. Medical History No medical history recorded. Past Encounters Encounter ID Performer Location Encounter Start Date Encounter Closed Date Diagnosis/Indication Diagnosis SNOMED-CT Code Diagnosis ICD10 Code Diagnosis Note [id number] Ronda Crisostomo MD Main - [address] [phone] 05/14/2023 16:49:55 05/17/2023 16:47:56 COVID-19 [id number] U07.1 Health Concerns Section Related Observation LastModified by Organization Dimas ls LastModified Time None Recorded Concern Status LastModified by Organization Details LastModified Time None Recorded Advance Directives Directive None Recorded Payers Encounter Date Sequence Insurance Name Policy Number Policy Humphrey Covered Member ID Humphrey Member ID Guarantor Name 05/14/[address] [facility] - DOS ON OR AFTER 2022 - DUAL ELIGIBLE - RETIREMENT OPTIONS AND ONE CARE (MEDICARE REPLACEMENT/AD VANTAGE - HMO) Ras Pavon [id number] Ras Pavon Notes Date Note Type Note [...] .................. .................. .................. .................. .................. .................. ............... Mushroom Packer Note From Toñito Leigh: [facility] 3 arrives to find 82-year-old male [...] AC. POC blood work drawn and analyzed. [facility] [place], orders received for 500 mL of normal saline, reassessment and repeat, 500 if needed. Orders fulfilled, 1 L of normal saline given IV. IV discontinued. Prescription sent to pharmacy. [facility] 3 clear . .................. .................. .................. .................. .................. .................. .................. ............... Disposition: Fulfilled Ronda Crisostomo MD [address] [facility],[address], [place], [address], [employer] 05/14/2023 17:30:41
--- OUTSIDE RECORDS SUMMARY | 2024-07-21 14:48 | XMS_ITS | Encounter Summary ---
Author Organization [facility] Address [address] [place] [address] 7[address] [place] [address] Care Team Providers Care Directional Driller Name Role Phone Ml Bess MD Primary Care Provider Reason for Visit * Reason Comments Med Refill Encounter Details Date Type Department Care Team (Late st Contact Info) Description 02/24/2023 Refill [facility] [address] [place], [place] [phone] Ml Bess MD [address] [place], [place] [phone] Social History Tobacco Use Types Packs/Day Years Used Date Smoking Tobacco: Never Smokeless Tobacco: Never Alcohol Use Standard Drinks/Week Comments Never 0 (1 standard drink = 0.6 oz pur e alcohol) Depression Answer Date Recorded Patient Health Questionnaire-2 [...] on filedocumented in this encounter Care Teams Directional Driller Relationship Specialty Start Date End Date Ml Bess MD [address] [place], [place] [phone] PCP - General Family Medicine 01/28/21 documented as of this encounter
--- OUTSIDE RECORDS SUMMARY | 2024-07-21 14:48 | XMS_ITS | Encounter Summary ---
Author Organization [facility], Address [address] [place] [address] Phone Care Team Providers Care Division Engineer Name Role Phone lM Bess MD Primary Care Provider + [phone] Encounter Details Date Type Department Care Team (Late st Contact Info) Description 04/28/2022 Documentation Only [facility], [address] [place] [phone] Heather Isaacs PA Social History Tobacco Use [...] on filedocumented in this encounter Care Teams Division Engineer Relationship Specialty Start Date End Date Ml Bess MD [address] [place] [address] PCP - General Refining Still Operator 05/04/23 documented as of this encounter
--- OUTSIDE RECORDS SUMMARY | 2024-07-21 14:48 | XMS_ITS | Encounter Summary ---
Author Organization [facility], Address [address] [place] [address] Phone Care Team Providers Care Endoscopic Technician Name Role Phone Ml Bess MD Primary Care Provider + [phone] Encounter Details Date Type Department Care Team (Late st Contact Info) Description 04/29/2022 Documentation Only [facility], [address] [place] [phone] Heather Isaacs PA Social History Tobacco Use [...] on filedocumented in this encounter Care Teams Endoscopic Technician Relationship Specialty Start Date End Date Ml Bess MD [address] [place] [address] PCP - General Travel Med Surg Rn 05/04/23 documented as of this encounter
--- OUTSIDE RECORDS SUMMARY | 2024-07-21 14:48 | XMS_ITS | Clinical Summary ---
Author Organization [employer] Address [address] [facility] 7t [place] [address] Care Team Providers Care Dean Of Women Name Role Phone Ml Bess MD Primary Care Provider [phone] Allergies Active Allergy Reactions Criticality Noted Date Comments Shellfish-Derived Products 0 Other reaction(s): unspecified Crab Lobster Shrimp Medications albuterol 108 (90 Base) MCG/ACT inhaler Inhale 2 puffs by mouth every 6 hours as needed 2 Active Diclofenac Sodium 1 % gel Apply 2 grams to the affected area 4 times daily 2 Active lidocaine (Xylocaine) 5 % ointment Apply topically 3 (three) times a day 1 Active omega-3, EPA + DHA, (fish oil) 1000 MG capsule take 1 Capsule by Oral route 2 times every day 1 Active Eliquis 2.5 MG tablet Take 1 tablet (2.5 mg) by mouth 2 times daily. 180 tablet 3 4 Active lisinopril 20 MG tabletIndications :Essential hypertension TAKE 1 TABLET BY MOUTH EVERY DAY 90 tablet 3 4 Active cetirizine (ZyrTEC) 10 MG tablet TAKE 1 TABLET BY MOUTH EVERY MORNING FOR CONGESTION 90 tablet 3 4 Active furosemide (Lasix) 20 MG tablet TOME AGUEDA TABLETA DOS VECES AL DONNA 180 tablet 2 4 Active acetaminophen (Tylenol 8 Hour) 650 MG ER tablet TAKE 1 TABLET BY MOUTH EVERY 8 (EIGHT) HOURS IF NEEDED FOR MILD PAIN. DO NOT CRUSH, CHEW, OR SPLIT. 60 tablet 6 4 Active Apoaequorin 10 MG capsuleIndication s:Memory impairment Take 1 each by mouth Once per day. 90 capsule 3 4 Active pravastatin (Pravachol) 40 MG tablet TAKE 1 TABLET BY MOUTH AT BEDTIME 90 tablet 3 4 Active omeprazole (PriLOSEC) [address] capsule TAKE 1 CAPSULE BY ORAL ROUTE EVERY MORNING NEEDED 90 capsule 3 4 Active fluticasone (Flonase) 50 MCG/ACT nasal spray SPRAY 2 SPRAYS INTO EACH NOSTRIL EVERY DAY 48 mL 3 4 Active Active Problems Problem Noted Date Diagnosed Date Congestive heart failure 08/03/2022 Assessment & Plan (04/25/2024 9:18 AM EST): Continue Lasix 20mg BID Monitor for swelling in LE or SOB Dry weight 164-168 Assessment & Plan (01/24/2024 12:10 PM EDT): Continue Lasix 20mg BID Monitor for swelling in LE or SOB Dry weight 164-168 Assessment & Plan (09/27/2023 10:35 AM EDT): Continue Lasix 20mg BID Monitor for swelling in LE or SOB Hip pain, bilateral 06/26/2022 Assessment & Plan (06/26/2022 2:19 PM EST): Rib xray normal Check pelvis/hip xrays Atrial flutter by electrocardiogram 06/23/2022 Assessment & Plan (01/24/2024 12:12 PM EDT): Continue anticoagulation with Eliquis, renally dosed Monitor for bleeding Per cardiology note 11/2023 supposed to decrease Diltiazem due to bradycardia, HR today is 39. Patient is asymptomatic. He is unsure if he stopped taking the higher dose of Diltiazem and pharmacy history shows that it was dispensed 11/2023. - ensure safe disposal of diltiazem 180mg ER tabs and to take only Diltiazem 30mg BID tablets Assessment & Plan (09/27/2023 10:35 AM EDT): Continue anticoagulation with Eliquis, renally dosed Monitor for bleeding Chronic right shoulder pain 06/23/2022 Depressive disorder 06/23/2022 Prediabetes 06/23/2022 Primary osteoarthritis of right shoulder 023 Assessment & Plan (10/09/2022 8:02 AM EDT): Has arthritis pain is various joints Tried granddaughter's Cilostazol, upon review of UTD this is contraindicated in heart failure pts Recommend plain Tyelnol, 650mg tabs sent to pharmacy Avoid NSAIDs due to chronic kidney disease Thoracic back pain 06/23/2022 Anemia of chronic renal failure 11/19/2021 Assessment & Plan (01/18/2023 1:21 PM EDT): At H/H Swelling of both lower extremities 11/19/2021 BPH associated with nocturia 03/14/2015 Assessment & Plan (01/18/2023 1:21 PM EDT): Continue Flomax Assessment & Plan (10/09/2022 8:02 AM EDT): Continue Flomax CKD (chronic kidney disease), stage III 03/14/20 Assessment & Plan (09/27/2023 10:36 AM EDT): Sees nephrology every 3-4 months Kidney disease hovers between stage 3b and 4 Avoid NSAIDs Blood pressure control Consider SGLT2 and spironolactone in the future Assessment & Plan (10/09/2022 8:03 AM EDT): Sees nephrology every 3-4 months Kidney disease hovers between stage 3b and 4 Avoid NSAIDs Blood pressure control Assessment & Plan (06/26/2022 2:18 PM EST): Saw second physical laboratory assistant Hold Celebrex Recheck BMP today Essential hypertension 03/14/2015 Assessment & Plan (04/25/2024 9:22 AM EST): Maintenance: Lasix 20mg BID, Lisinopril 20mg, STOP Dilitazem! BMP: Cr 1.8 Lipid Panel: next visit ASCVD Risk: > 10% on statin EKG: per cardiology note, about 50% atrial fibrillation - Aerobic exercise to reduce BP. Initial goal of 30 min walk 3-5x/week. Increase as tolerated. - low-sodium diet (goal: <2g/day) and heart healthy diet such as DASH to reduce BP and prevent ASCVD. - Home BP monitoring 1-2 x day with goal of <140/90. - Seek immediate medical attention for chest pain, palpitations, SOB, syncope, or sudden changes in mental status. - Do not change or discontinue current prescriptions without first consulting health care provider Assessment & Plan (01/24/2024 12:09 PM EDT): Maintenance: Lasix 20mg BID, Diltiazem 30mg BID, Terasozin BMP: Cr 1.8 Lipid Panel: next visit ASCVD Risk: > 10% on statin EKG: per cardiology note, about 50% atrial fibrillation - Aerobic exercise to reduce BP. Initial goal of 30 min walk 3-5x/week. Increase as tolerated. - low-sodium diet (goal: <2g/day) and heart healthy diet such as DASH to reduce BP and prevent ASCVD. - Home BP monitoring 1-2 x day with goal of <140/90. - Seek immediate medical attention for chest pain, palpitations, SOB, syncope, or sudden changes in mental status. - Do not change or discontinue current prescriptions without first consulting health care provider Assessment & Plan (09/27/2023 10:35 AM EDT): Maintenance: Lasix 20mg BID, Diltiazem, Terasozin BMP: Cr 1.8 Lipid Panel: next visit ASCVD Risk: > 10% on statin EKG: Obtain baseline at f/u - Aerobic exercise to reduce BP. Initial goal of 30 min walk 3-5x/week. Increase as tolerated. - low-sodium diet (goal: <2g/day) and heart healthy diet such as DASH to reduce BP and prevent ASCVD. - Home BP monitoring 1-2 x day with goal of <140/90. - Seek immediate medical attention for chest pain, palpitations, SOB, syncope, or sudden changes in mental status. - Do not change or discontinue current prescriptions without first consulting health care provider Assessment & Plan (01/18/2023 1:20 PM EDT): Maintenance: hydrochlorothiazide, Lasix 20mg BID, Diltiazem, Terasozin BMP: Cr 2.04-2.2 Lipid Panel: ASCVD Risk: > 10% on statin EKG: Obtain baseline at f/u - Aerobic exercise to reduce BP. Initial goal of 30 min walk 3-5x/week. Increase as tolerated. - low-sodium diet (goal: <2g/day) and heart healthy diet such as DASH to reduce BP and prevent ASCVD. - Home BP monitoring 1-2 x day with goal of <140/90. - Seek immediate medical attention for chest pain, palpitations, SOB, syncope, or sudden changes in mental status. - Do not change or discontinue current prescriptions without first consulting health care provider Assessment & Plan (10/09/2022 8:00 AM EDT): Maintenance: hydrochlorothiazide, Lasix 20mg BID, Diltiazem, Terasozin BMP: Cr 2.04 Lipid Panel: ASCVD Risk: > 10% ons tatin EKG: Obtain baseline at f/u - Aerobic exercise to reduce BP. Initial goal of 30 min walk 3-5x/week. Increase as tolerated. - low-sodium diet (goal: <2g/day) and heart healthy diet such as DASH to reduce BP and prevent ASCVD. - Home BP monitoring 1-2 x day with goal of <140/90. - Seek immediate medical attention for chest pain, palpitations, SOB, syncope, or sudden changes in mental status. - Do not change or discontinue current prescriptions without first consulting health care provider Gastroesophageal reflux disease 03/14/2015 Hyperlipidemia 03/14/2015 Assessment & Plan (10/09/2022 8:02 AM EDT): Continue Pravastatin 40mg daily Impaired glucose tolerance 03/14/2015 Multiple nodules of lung 03/14/2015 Smoker 03/14/2015 Vitamin D deficiency 03/14/2015 Resolved Problems Problem Noted Date Diagnosed Date Resolved Date Hypervolemia 08/03/2022 01/24/2024 Acute on chronic systolic co ngestive heart failure 06/26/2022 01/24/2024 Assessment & Plan (08/10/2023 8:40 AM EST): He is currently in a mild CHF exacerbation. BNP 397 (07/16/23) and now 445 (08/05/23). Renal function is unchanged. - needs to increase Lasix to 40mg BID for 2 weeks - avoid restaurant foods, cook at home with ROD STRAIGHTENER and do not add salt Assessment & Plan (07/19/2023 1:02 PM EST): Mild swelling of LE, 3 pound weight gain BNP 300 Mild CHF exacerbation Increase routine Lasix 20mg BID dosing to Lasix 40mg BID x 1 week f/u by phone to ensure resolution of swelling Assessment & Plan (01/18/2023 1:21 PM EDT): Appears euvolemic and at dry weight currently Continue Lasix 20mg twice daily Low sodium diet <2mg per day Call if gain more than 3-5 pounds to increase diuretic therapy Check BNP and BMP at next visit Goal BNP < 100 Assessment & Plan (10/09/2022 8:01 AM EDT): Appears euvolemic and at dry weight currently Continue Lasix 20mg twice daily Low sodium diet <2mg per day Call if gain more than 3-5 pounds to increase diuretic therapy Check BNP and BMP today Goal BNP < 100 Assessment & Plan (06/26/2022 2:18 PM EST): Appears euvaolemic currently Continue Lasix 20mg daily Check BNP and BMP today Goal BNP < 100 Encounters Date Type Department Care Team Description 05/29/2024 Refill [facility] [address] [place] [address] Ml Bess MD 04/24/2024 10:15 AM EST Office Visit [facility] [address] [place] [address] Ml Bess MD Stage 3b chronic kidney disease (CMS/HCC) (Primary Dx); Chronic systolic congestive heart failure (CMS/HCC); Essential hypertension 04/24/2024 Travel from Last 3 Months Immunizations Name Administration Dates Next Due Influenza High-dose Quadriva lent Preservative Free 03/10/2023,04/06/2022 Influenza Quadrivalent Adjuvanted 02/12/2020 Influenza injectable quadriv alent IIV4 with preservative 05/12/2017,03/14/2015 Influenza injectable quadriv alent preservative free 04/21/2021 Influenza, High Dose Seasona l, Preservative Free 01/27/2024,03/11/2018,05/06/2016 Influenza, IIV3, injectable 02/20/2014, 1 Influenza, Split (incl. shazia fied surface antigen) 02/16/2013,02/04/2012 Influenza, trivalent, adjuvanted 02/23/2019,03/07 Moderna Covid-19 Vaccine 12+ 08/15/2020,07/18/19 21 Pfizer Covid-19 Vaccine 12+ 04/16/2021 Pfizer Covid-19 Vaccine 12+ fadia-sucrose (Taylor Cap) 02/04/2022 Pneumococcal Conjugate PCV 13 05/02/2019, 015 Pneumococcal Polysaccharide PPSV23 09/30/2009 TD (adult), 2 Lf tetanus tox oid, preservative free, adsorbed 11/25/2005 Tdap 01/18/2023,09/01/2011 Zoster, Recombinant 12/16/2021,01/24/2019 Zoster, live 09/30/2009 Social History Tobacco Use Types Packs/Day Years Used Date Smoking Tobacco: Never Smokeless Tobacco: Never Tobacco Cessation:Counseling Given: Not Answered Alcohol Use Standard Drinks/Week Comments Never 0 (1 standard drink = 0.6 oz pur e alcohol) Housing Stability Answer Date Recorded What is your housing situation today? I have suhastephanie crowell 03/31/[address] you [...] Orientation Straight 04/06/2022 10 :16 AM EDT Last Filed Vital Signs Vital Sign Reading Time Taken Comments Blood Pressure 136/80 04/24/2024 10:13 AM EST Pulse 51 04/24/2024 10:13 AM EST Temperature 36.6 ??C (97.8 ??F) 04/24/2024 10:[address] Respiratory Rate 18 04/24/2024 10:13 AM EST Oxygen Saturation 98% 01/21/2024 10:53 AM EDT Inhaled Oxygen Concentration - - Weight 74.1 kg (163 lb 6.4 oz) 04/24/2024 10:13 AM EST Height 170.2 cm (5' 7 ) 04/24/2024 10:13 AM EST Body Mass Index 25.59 04/24/2024 10:13 AM EST Plan of Treatment Health Maintenance Due Date Last Done Comments Alcohol/Substance Use Screening 1952 RSV Patients and Patients Aged 60 years or older (1 - 1-dose 75+ series) 12/26/2015 Depression Screening 10/08/2023 10/07/2022, 10/08/19 SDOH Screening 10/08/2023 10/07/2022 COVID-19 Vaccine ( season) 2024 04/06/2022, 02/04/2022, 04/16/2021, Additional history exists Diabetes: Hemoglobin A1C 08/05/2024 024, 05/22/2021, 11/14/2020, Additional history exists Tobacco Screening 04/24/2025 04/24/2024 Lipid Panel 11/14/2025 11/14/2020, 06/11/2020 DTaP/Tdap/Td Vaccines (3 - Td or Tdap) 01/18/2033 01/18/2023, 09/01/2011, 11/25/2005 Pneumococcal Vaccine: 50+ Years Completed 05/02/2019, 03/14/2015, 09/30/2009 Zoster Vaccines Completed 12/16/2021, 01/06, 09/30/2009 Influenza Vaccine Completed 01/27/2024, , 04/06/2022, Additional history exists HIB Vaccines Aged Out No longer eligi ble based on patient's age to complete this topic HPV Vaccines Aged Out No longer eligi ble based on patient's age to complete this topic Hepatitis A Vaccines Aged Out No long er eligible based on patient's age to complete this topic Hepatitis B Vaccines Aged Out No long er eligible based on patient's age to complete this topic IPV Vaccines Aged Out No longer eligi ble based on patient's age to complete this topic Meningococcal Vaccine Aged Out No johann nas eligible based on patient's age to complete this topic RSV under 20 months Aged Out No longe r eligible based on patient's age to complete this topic Rotavirus Vaccines Aged Out No longer eligible based on patient's age to complete this topic Procedures Procedure Name Priority Date/Time Associated Diagnosis Comments BASIC METABOLIC PANEL Routine 04/24/2024 10:56 AM EST Stage 3b chronic kidney disease (CMS/HCC) HEMOGLOBIN A1C Routine 08/06/2023 12:35 PM EST Swelling of both lower extremities LIPID PANEL, STANDARD Routine 11/14/2020 8:07 AM EDT from Last 3 Months or Most Recently Relevant to Health Maintenance Results * (ABNORMAL) Basic Metabolic Panel (04/24/2024 10:56 AM EST) Sodium 142 135 - 145 mmol/L [facility] Potassium 3.9 3.3 - 5.1 mmol/L [facility] Chloride 109(H) 96 - 108 mmol/L [facility] Carbon Dioxide 25 22 - 29 mmol/L [facility] Anion Gap 12 12 - 20 [facility] Urea Nitrogen (BUN) 27(H) 9 - 16 mg/dL [facility] Creatinine, Serum 1.72(H) 0.5 - 1.4 mg/dL [facility] Estimated Glomerular Filt Rate 38 [facility] Comment:Chronic Kidney Disea se: Estimated GFR < 60 mL/min/1.46q5Uiqlyn Kidney Disease: Estimated GFR < 15 mL/min/1.73m2 Glucose 96 60 - 115 mg/dL [facility] Calcium 9.4 8.4 - 10.2 mg/dL [facility] Blood Venous blood specimen / Unknown 04/24/2024 10:56 AM EST 04/24/2024 11:32 AM EST Ml Bess MD LAB BLOOD ORDERABLES Final Res ult [facility] [address] [place] [phone] * Hemoglobin A1c (08/06/2023 12:35 PM EST) Hemoglobin A1c 5.4 <6.0 % [facility] Comment:Hemoglobin A1C Refer ence Range Adults: 4.8 - 6.0 % Non diabetic: < 6.0 % Goal: < 7.0 %Additional Action Suggested: > 8.0 %Note: Hemoglobin A1c results are invalid for patients with abnormal amounts of HbF. Blood transfusions may impact the HbA1c concentration in the patient sample. Estimated Average Glucose 108 mg/dL [facility] Comment:eAG = Estimated ave rage glucose which is %A1C expressed asaverage glucose, using the formula of the V3M-[id number] Glucose study (ADAG), Diabetes Care, Vol.31,#8,Jan. 2007 Blood Venous blood specimen / Unknown 08/06/2023 12:35 PM EST 08/06/2023 12:35 PM EST Ml Bess MD LAB BLOOD ORDERABLES Final Res ult [facility] [address] [place] [phone] * LIPID PANEL, STANDARD (11/14/2020 8:07 AM EDT) Chol/HDLC Ratio 3.2 <5.0 (calc) [facility] Cholesterol, Total 139 <200 mg/dL [facility] HDL Cholesterol 44 > OR = 40 mg/dL [facility] LDL Cholesterol 81 mg/dL (calc) [facility] Comment: Reference range: <100 ?? Desirable range <100 mg/dL for primary prevention; ?? <70 mg/dL for patients with CHD or diabetic patients ?? with > or = 2 CHD risk factors. ?? LDL-C is now calculated using the Olya ?? calculation, which is a validated novel method providing ?? better accuracy than the Friedewald equation in the ?? estimation of LDL-C. ?? Hernando NOLASCO et al. JOSEPIHNE. 2013;310(19): 2575-8070 ?? (http://education.Pixelpipe/faq/RSM632) Non-HDL Cholesterol 95 <130 mg/dL (calc) [facility] Comment: For patients with diabetes plus 1 major ASCVD risk ?? factor, treating to a non-HDL-C goal of <100 mg/dL ?? (LDL-C of <70 mg/dL) is considered a therapeutic ?? option. Triglycerides 68 <150 mg/dL [facility] 11/14/2020 8:07 AM EDT us Shayy SAMUELSP LAB BLOOD ORDERABLES Final Result Performing Organization Address City/[facility]/ZIP Co de Phone Number [facility] [address] from Last 3 Months or Most Recently Relevant to Health Maintenance Insurance [facility] Care Teams Dean Of Women Relationship Specialty Start Date End Date Ml Bess MD [address] [place] [phone] PCP - General Family Medicine 01/28/21
--- OUTSIDE RECORDS SUMMARY | 2024-07-21 14:48 | XMS_ITS | Encounter Summary ---
Author Organization [facility], Address [address] [place] [address] Phone Care Team Providers Care Derrick Boat Runner Name Role Phone Ml Bess MD Primary Care Provider [phone] Reason for Visit * Reason Comments Med Refill Encounter Details Date Type Department Care Team (Late st Contact Info) Description 07/03/2021 [facility]ill [facility] [address] [facility] [place] [phone] Laci Seay MD [address] [place] [phone] Social History Tobacco Use Types Packs/Day Years Used Date Smoking Tobacco: Never Alcohol Use Standard Drinks/Week Comments [...] on filedocumented in this encounter Care Teams Derrick Boat Runner Relationship Specialty Start Date End Date Ml Bess MD [address] [place] [address] PCP - General Safety Aide 05/04/23 documented as of this encounter
--- OUTSIDE RECORDS SUMMARY | 2024-07-21 14:48 | XMS_ITS | Encounter Summary ---
Author Organization [facility], Address [address] [place] [address] Phone Care Team Providers Care Medical Affairs Director Name Role Phone Ml Bess MD Primary Care Provider + [phone] Encounter Details Date Type Department Care Team (Late st Contact Info) Description 12/16/2021 Documentation Only [facility], [address] [place] [address] Laci Seay MD [address] [place] [phone] Social History Tobacco Use Types Packs/Day Years [...] on filedocumented in this encounter Care Teams Medical Affairs Director Relationship Specialty Start Date End Date Ml Bess MD [address] [place] [address] PCP - General Assistant Women'S Tennis Coach 05/04/23 documented as of this encounter
--- OUTSIDE RECORDS SUMMARY | 2024-07-21 14:48 | XMS_ITS | Encounter Summary ---
Author Organization [facility] Address [address] [place] [address] [place] [address] Care Team Providers Care Oracle Database Consultant Name Role Phone Ml Bess MD Primary Care Provider Reason for Visit * Reason Comments Med Refill Encounter Details Date Type Department Care Team ([facility] st Contact Info) Description 01/22/2023 Refill [facility] MEDICINE [address] [place], [place] [phone] Summer Fernandez FNP [address] [place] [address] [address] [place] [address] Social History Tobacco Use Types Packs/Day Years [...] on filedocumented in this encounter Care Teams Oracle Database Consultant Relationship Specialty Start Date End Date Ml Bess MD [address] [place], [place] [phone] PCP - General Family Medicine 01/28/21 documented as of this encounter
--- OUTSIDE RECORDS SUMMARY | 2024-07-21 14:48 | XMS_ITS | Encounter Summary ---
Author Organization [facility], Address [address] [place] [address] Phone Care Team Providers Care Motor Vehicle Emissions Inspector Name Role Phone Ml Bess MD Primary Care Provider + [phone] Encounter Details Date Type Department Care Team (Late st Contact Info) Description 09/17/2021 Documentation Only [facility], [address] [place] [address] Piedad Lamas NP [address] [place] [address] Social History Tobacco Use Types Packs/Day Years [...] on filedocumented in this encounter Care Teams Motor Vehicle Emissions Inspector Relationship Specialty Start Date End Date Ml Bess MD [address] [place] [address] PCP - General Rad Technologist 05/04/23 documented as of this encounter
--- NOTE | 2024-07-21 14:57 | HO.NEPHOV_ITS ---
Vital Signs 07/21/24 15:01 Height 5 ft 7 in Weight 169 lb BMI 26.5 BP 130/62 Blood Pressure Location Lt brachial Position Sitting Pulse 61 Pulse Source Pulse Oximeter Pulse Oximetry (%) 98 Oxygen Delivery Method Room Air Intake Visit Reasons: INP: CKD, cr 1.72, GFR 38/Conf Mineralogy Professor Required: Yes Mineralogy Professor Language: Finance Clerk Services: Mineralogy Professor Offered & Declined ([facility] american sign language interpreter services refused. ) Accompanied by: Other Relationship Allergies shrimp Allergy (Intermediate, Verified 07/21/24 15:00) SWELLING HPI Comments Details: Thank you for referring Ras for evaluation of CKD and hypertension. He was accompanied by Corina , his step daughter during this visit. He is 83 years of age who has long standing H/O hypertension. He is on ACEI which he is tolerating very well. He is not a diabetic. He is not known to have significant proteinuria. He has no H/O CAD, CVA, CHF, carotid stenosis, PAD or known H/O PANKAJ. He denied hypercalcemia, weight loss, hematuria, H/O malignancy,hearing deafness, recurrent UTI, new bone or back pain, sinusitis, photosensitivity, skin rashes, edema, nausea, vomiting, diarrhea, SOB, PND or orthopnea. He does not take OTC medications or excess NSAID's. He feels well and did not have any specific complaint at the time of this office visit. His serum creatinine had gone up to 2.38 which has now improved to 1.72 [facility] Medical History (Updated 07/22/24 @ 11:40 by Roni Lopez MD) Chronic kidney disease, stage 3 Atrial flutter Depression Pulmonary nodules GERD (gastroesophageal reflux disease) Other and unspecified hyperlipidemia Vitamin D deficiency BPH (benign prostatic hyperplasia) Essential hypertension Pre-diabetes Surgical History History of umbilical hernia repair Family History Father No problems noted. Mother No problems noted. 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 Review of Systems Const All systems reviewed & are unremarkable except as noted in HPI and below Physical Exam Vital Signs: Last Vital Signs Pulse 61 07/21/24 15:01 BP 130/62 07/21/24 15:01 Pulse Ox 98 07/21/24 15:01 Oxygen Delivery Method Room Air 07/21/24 15:01 BMI result Body Mass Index 26.5 Const General: comfortable and no acute distress Orientation/consciousness: patient oriented x3 HEENT Head: Yes normocephalic Mouth: Normal oral and palatal mucosa present Eyes EOM: EOMs intact bilaterally Neck Neck: Yes supple Resp Auscultation: clear to auscultation bilaterally Cardio Jugular venous distension: no JVD Rate: regular rate GI Palpation (GI): Soft to palpation Auscultation: normal bowel sounds General: Yes no CVA tenderness Back/Spine/Pelvis Back: no CVA tenderness Skin General skin exam: no rashes or lesions noted Neuro General: patient oriented x3 and moves all extremities Extrem General: Yes no pedal edema Results Reviewed Nephrology Results: Hgb 11.2 g/dl (14.0-18.0) L 04/14/24 WBC 5.6 X10*3/uL (4.8-10.8) 04/14/24 Plt Count 183 X10*3/uL (160-400) 04/14/24 Sodium 142 mmol/L (135-145) 04/24/24 Potassium 3.9 mmol/L (3.3-5.1) 04/24/24 Chloride 109 mmol/L (96-108) H 04/24/24 Carbon Dioxide 25 mmol/L (22-29) 04/24/24 BUN 27 mg/dL (9-16) H 04/24/24 Creatinine 1.72 mg/dL (0.5-1.4) H 04/24/24 Calcium 9.4 mg/dL (8.4-10.2) 04/24/24 Assessment & Plan Assessment & Plan (1) Essential hypertension: Code(s): I10 - Essential (primary) hypertension Category: Medical (2) Chronic kidney disease, stage 3: Code(s): N18.30 - Chronic kidney disease, stage 3 unspecified Category: Medical Qualifiers: Chronic kidney disease stage 3 subtype: stage 3a (GFR 45-59) Qualified Code(s): N18.31 - Chronic kidney disease, stage 3a Juancho Mcginnis has CKD 3 most likely due to vascular disease, hypertension and age related loss of renal function. He recently had NICHOLE which has improved to baseline. His UO is good and is not known to have prostatic malignancy. He is on ACEI which he is tolerating well. He avoids NSAID's and maintain good hydration. I have ordered work up including imaging studies. He will be a candidate for low dose SGLT2i which I plan to initiate at next visit after reviewing data. Answered all questions. F/U given Orders: Orders UA and rflx microscopic 2 Months I10 - Essential (primary) hypertension, N18.30 - Chronic kidney disease, stage 3 unspecified Immunofixation, Random Urine 2 Months I10 - Essential (primary) hypertension, N18.30 - Chronic kidney disease, stage 3 unspecified Immunofixation Pnl, Serum 2 Months I10 - Essential (primary) hypertension, N18.30 - Chronic kidney disease, stage 3 unspecified Creatinine 2 Months I10 - Essential (primary) hypertension, N18.30 - Chronic kidney disease, stage 3 unspecified Blood Urea Nitrogen 2 Months I10 - Essential (primary) hypertension, N18.30 - Chronic kidney disease, stage 3 unspecified Calcium 2 Months I10 - Essential (primary) hypertension, N18.30 - Chronic kidney disease, stage 3 unspecified US renal BI 07/21/24 I10 - Essential (primary) hypertension, N18.30 - Chronic kidney disease, stage 3 unspecified Protein Creatinine Ratio, Ur 2 Months I10 - Essential (primary) hypertension, N18.30 - Chronic kidney disease, stage 3 unspecified Complete Blood Count Auto Diff 2 Months I10 - Essential (primary) hypertension, N18.30 - Chronic kidney disease, stage 3 unspecified Electrolytes 2 Months I10 - Essential (primary) hypertension, N18.30 - Chronic kidney disease, stage 3 unspecified Coding Level of Care Code New Pt Level 4 (94416) Diagnoses Essential hypertension I10 Stage 3a chronic kidney disease N18.31 Chronic kidney disease stage 3 subtype: stage 3a (GFR 45-59)
[2024-07-21 15:01] VITALS: BP 130/62; PULSE 61; O2SAT 98; BMI 26.5
== END 2024-07-21 15:23 | disposition home or self-care (01) ==
PROVIDERS: PCP General Practice; Referring Provider Nurse Practitioner Family; Visit Provider Internal Medicine Nephrology
DX: I10 Essential (primary) hypertension (principal); N18.31 Chronic kidney disease, stage 3a
CPT/HCPCS: 99204

== ENCOUNTER → 2024-07-21 14:46 | Outpatient (BNVA) | payer OTHER, SELFPAY | PROVIDERS: PCP General Practice; Referring Provider Nurse Practitioner Family; Visit Provider Internal Medicine Nephrology | DX: I12.9 Hypertensive chronic kidney disease with stage 1 through stage 4 chronic kidney disease, or unspecified chronic kidney disease (principal); N18.31 Chronic kidney disease, stage 3a | CPT/HCPCS: 99202 ==

== ENCOUNTER 2024-09-06 09:11 | Outpatient (REF) | payer OTHER, SELFPAY ==
[2024-09-06 09:29] LABS: MANUAL DIFF FLAG NO
[2024-09-06 09:37] LABS: Basophils Absolute Auto 0.1 X10*3/uL (0.0-0.2); Basophils Percent Auto 0.7 % (0-2); Eosinophils Absolute Auto 0.2 X10*3/uL (0.0-0.4); Eosinophils Percent Auto 2.8 % (0-4); Hematocrit 34.8 % (42.0-52.0); Hemoglobin 11.7 g/dl (14.0-18.0); Imm Gran Abs Auto 0.02 X10*3/uL (0.00-0.03); Imm Gran Pct Auto 0.3 % (0.0-0.4); Lymphocytes Absolute Auto 1.7 X10*3/uL (1.2-4.9); Lymphocytes Percent Auto 24.5 % (20-40); Mean Corpuscular HGB Conc 33.6 g/dl (31.0-36.0); Mean Corpuscular Hemoglobin 32.1 pg (27.0-33.0); Mean Corpuscular Volume 95.6 fL (80.0-98.0); Mean Platelet Volume 9.7 fL (9.4-12.4); Monocytes Absolute Auto 0.8 X10*3/uL (0.1-1.2); Monocytes Percent Auto 11.7 % (2-11); Neutrophils Absolute Auto 4.2 x10*3/uL (2.0-8.3); Platelet Count 227 X10*3/uL (160-400); Red Blood Count 3.64 X10*6/uL (4.60-5.80); Red Cell Distribution Width 12.9 % (11.0-16.0); White Blood Count 7.1 X10*3/uL (4.8-10.8)
[2024-09-06 09:58] LABS: Anion Gap 11 (12-20); Blood Urea Nitrogen 39 mg/dL (9-16); Calcium 9.7 mg/dL (8.4-10.2); Carbon Dioxide 26 mmol/L (22-29); Chloride 107 mmol/L (96-108); Estimated Glomerular Filt Rate 38; Sodium 140 mmol/L (135-145)
--- OUTSIDE RECORDS SUMMARY | 2024-09-06 10:07 | XMS_ITS | Encounter Summary ---
Author Organization [facility] Address [address] [place] [address] [place] [address] Care Team Providers Care Municipal Engineer Name Role Phone Ml Bess MD Primary Care Provider [phone] Reason for Visit * Reason Comments Med Refill Encounter Details Date Type Department Care Team ([facility] st Contact Info) Description 01/22/2023 Refill [facility] MEDICINE [address] [place], [place] [phone] Summer Fernandez FNP [address] [place] [address] Dept [place] [address] Social History Tobacco Use Types Packs/Day Years [...] on filedocumented in this encounter Care Teams Municipal Engineer Relationship Specialty Start Date End Date Ml Bess MD [address] [place], [place] [phone] PCP - General Family Medicine 01/28/21 documented as of this encounter
--- OUTSIDE RECORDS SUMMARY | 2024-09-06 10:07 | XMS_ITS | Encounter Summary ---
Author Organization [facility], Address [address] [place] [address] Phone Care Team Providers Care Racket Stringer Name Role Phone Ml Bess MD Primary Care Provider + [phone] Encounter Details Date Type Department Care Team (Late st Contact Info) Description 04/29/2022 Documentation Only [facility], [address] [place] [phone] Heather Isaacs PA Social History Tobacco Use [...] on filedocumented in this encounter Care Teams Racket Stringer Relationship Specialty Start Date End Date Ml Bess MD [address] [place] [address] PCP - General Geological Scout 05/04/23 documented as of this encounter
--- OUTSIDE RECORDS SUMMARY | 2024-09-06 10:07 | XMS_ITS | Encounter Summary ---
Author Organization [email or web address] [facility] Address [address] [place] [address] 7t [place] [address] Care Team Providers Care Sas Clinical Programmer Name Role Phone Ml Bess MD Primary Care Provider [phone] Reason for Visit * Reason Comments Med Refill Encounter Details Date Type Department Care Team (Late st Contact Info) Description 02/24/2023 Refill [facility] MEDICINE [address] [place], [place] [phone] Ml Bess MD [address] [place], [place] [phone] Social History Tobacco Use Types Packs/Day Years [...] on filedocumented in this encounter Care Teams Sas Clinical Programmer Relationship Specialty Start Date End Date Ml Bess MD [address] [place], [place] [phone] PCP - General Family Medicine 01/28/21 documented as of this encounter
--- OUTSIDE RECORDS SUMMARY | 2024-09-06 10:07 | XMS_ITS | Encounter Summary ---
Author Organization [id number] Address [address] [facility] 7t [place] [address] Care Team Providers Care Certified Home Health Aide Name Role Phone Ml Bess MD Primary Care Provider [phone] Encounter Details Date Type Department Care Team (Late st Contact Info) Description 04/26/2023 Telephone [facility] MEDICINE [address] [place], [place] [phone] Ml Bess MD [address] [place], [place] [phone] Social History Tobacco Use Types Packs/Day Years [...] on filedocumented in this encounter Care Teams Certified Home Health Aide Relationship Specialty Start Date End Date Ml Bess MD [address] [place] [address] PCP - General Family Medicine 01/28/21 documented as of this encounter
--- OUTSIDE RECORDS SUMMARY | 2024-09-06 10:07 | XMS_ITS | Encounter Summary ---
Author Organization [facility] [place], Address [address] [place] [address] Phone Care Team Providers Care Journalism Intern Name Role Phone Ml Bess MD Primary Care Provider + [phone] Encounter Details Date Type Department Care Team (Late st Contact Info) Description 12/16/2021 Documentation Only [facility], [address] [place] [address] Laci Seay MD [address] [facility] [place] [phone] Social History Tobacco Use Types Packs/Day Years [...] on filedocumented in this encounter Care Teams Journalism Intern Relationship Specialty Start Date End Date Ml Bess MD [address] [place] [address] PCP - General Outbound Call Center Representative 05/04/23 documented as of this encounter
--- OUTSIDE RECORDS SUMMARY | 2024-09-06 10:07 | XMS_ITS | Encounter Summary ---
Author Organization [facility], Address [address] [place] [address] Phone Care Team Providers Care Sanding Machine Operator Name Role Phone Ml Bess MD Primary Care Provider + [phone] Encounter Details Date Type Department Care Team (Late st Contact Info) Description 07/30/2022 Documentation Only [facility], [address] [place] [phone] Heather Isaacs PA Social History Tobacco Use [...] on filedocumented in this encounter Care Teams Sanding Machine Operator Relationship Specialty Start Date End Date Ml Bess MD [address] [place] [address] PCP - General Wedding Cake Designer 05/04/23 documented as of this encounter
--- OUTSIDE RECORDS SUMMARY | 2024-09-06 10:07 | XMS_ITS | Data Portability ---
Author Organization [employer] [facility] Address [address] [place] [address] Care Team Providers Care Sales Engineering Manager Name Role Phone [facility] Referring Provider [facility] Referring Provider Assessment Encounter Date [...] tablets in a dose pack 2022 023 [facility] #[id number], [address] [facility], [place], [address], 17:15:59 Patient TargetsNo targets recorded. Patient InstructionsNo [...] Address Organization Details Last Updated DateTime 3 90535.1 28 g 82 /min 16 /min 170.18 cm 100 % 100 % 97.8 [degF] 130 mm[Hg] 71 mm[Hg] Not Available [employer] - production 3 16:50:06 Social History None recorded. Functional Status None recorded. Mental Status None recorded. Family History Nothing Reported. Medical History No medical history recorded. Past Encounters Encounter ID Performer Location Encounter Start Date Encounter Closed Date Diagnosis/Indication Diagnosis SNOMED-CT Code Diagnosis ICD10 Code Diagnosis Note [id number] Ronda Crisostomo MD Main - [address] [address] 05/14/2023 16:49:55 05/17/2023 16:47:56 COVID-19 640438839 U07.1 Health Concerns Section Related Observation LastModified by Organization [facility] LastModified Time None Recorded Concern Status LastModified by Organization Details LastModified Time None Recorded Advance Directives Directive None Recorded Payers Encounter Date Sequence Insurance Name Policy Number Policy Humphrey Covered Member ID Humphrey Member ID Guarantor Name 05/14/2023 1 [facility] - DOS ON OR AFTER 2022 - DUAL ELIGIBLE - RETIREMENT OPTIONS AND ONE CARE (MEDICARE REPLACEMENT/AD VANTAGE - HMO) Ras Pavon [id number] Ras Pavon Notes Date Note Type Note [...] .................. .................. .................. .................. .................. .................. ............... Spraying Machine Operator Note From Toñito Leigh: [facility] 3 arrives to find 82-year-old male seated [...] AC. POC blood work drawn and analyzed. [facility] consulted, orders received for 500 mL of normal saline, reassessment and repeat, 500 if needed. Orders fulfilled, 1 L of normal saline given IV. IV discontinued. Prescription sent to pharmacy. [facility] 3 clear . .................. .................. .................. .................. .................. .................. .................. ............... Disposition: Fulfilled Ronda Crisostomo MD [address] [facility],[address], [place], [address], APS - [employer] 05/14/2023 17:30:41
--- OUTSIDE RECORDS SUMMARY | 2024-09-06 10:07 | XMS_ITS | Encounter Summary ---
Author Organization [facility], Address [address] [place] [address] Phone Care Team Providers Care Rotor Blade Installer Name Role Phone Ml Bess MD Primary Care Provider + [phone] Encounter Details Date Type Department Care Team (Late st Contact Info) Description 09/17/2021 Documentation Only [facility], [address] [place] [address] Piedad Lamas NP [address] [place] [address] Social History Tobacco Use Types Packs/Day Years [...] on filedocumented in this encounter Care Teams Rotor Blade Installer Relationship Specialty Start Date End Date Ml Bess MD [address] [place] [address] PCP - General Tie Binder 05/04/23 documented as of this encounter
--- OUTSIDE RECORDS SUMMARY | 2024-09-06 10:07 | XMS_ITS | Encounter Summary ---
Author Organization [facility] [place], Address [address] [place] [address] Phone Care Team Providers Care Test Engine Evaluator Name Role Phone Ml Bess MD Primary Care Provider [phone] Reason for Visit * Reason Comments Med Refill Encounter Details Date Type Department Care Team (Late st Contact Info) Description 07/03/2021 Refill [facility] [address] [facility] [place] [phone] Laci Seay MD [address] [place] [address] Social History Tobacco Use Types Packs/Day Years [...] on filedocumented in this encounter Care Teams Test Engine Evaluator Relationship Specialty Start Date End Date Ml Bess MD [address] [place] [address] PCP - General Machine Finisher 05/04/23 documented as of this encounter
--- OUTSIDE RECORDS SUMMARY | 2024-09-06 10:07 | XMS_ITS | Encounter Summary ---
Author Organization [facility], Address [address] [place] [address] Phone Care Team Providers Care Form Maker Name Role Phone Ml Bess MD Primary Care Provider + [phone] Encounter Details Date Type Department Care Team (Late st Contact Info) Description 04/28/2022 Documentation Only [facility], [address] [place] [address] Heather Isaacs PA Social History Tobacco Use [...] on filedocumented in this encounter Care Teams Form Maker Relationship Specialty Start Date End Date Ml Bess MD [address] [place] [address] PCP - General Grain Elevator Agent 05/04/23 documented as of this encounter
--- OUTSIDE RECORDS SUMMARY | 2024-09-06 10:07 | XMS_ITS | Clinical Summary ---
Author Organization [facility], Address [address] [place] [address] [place] [address] Phone Care Team Providers Care Bottle House Quality Control Technician Name Role Phone Ml Bess MD [...] time each day Active ergocalciferol 1.25 MG (83990 UT) capsule 1 Active dilTIAZem CD (CARDIZEM [...] to complete this topic Insurance [facility] ONE CARE DUAL SNP ([id number]) [facility] Care Teams Bottle House Quality Control Technician Relationship Specialty Start Date End Date Ml Bess MD [address] [place] [address] PCP - General Supervisor [employer] 05/04/23
--- OUTSIDE RECORDS SUMMARY | 2024-09-06 10:08 | XMS_ITS | Clinical Summary ---
Author Organization [employer] Address [address] [facility] 7[address] [place] [address] Care Team Providers Care Tavern Operator Name Role Phone Ml Bess MD Primary Care Provider [phone] Allergies Active Allergy Reactions Criticality Noted Date Comments Shellfish-Derived Products 0 Other reaction(s): unspecified Crab Lobster Shrimp Medications albuterol 108 (90 Base) MCG/ACT inhaler Inhale 2 puffs by mouth every 6 hours as needed 09/02/19 22 Active Diclofenac Sodium 1 % gel Apply 2 grams to the affected area 4 times daily 11/06/19 22 Active lidocaine (Xylocaine) 5 % ointment Apply topically 3 (three) times a day 08/01/19 21 Active omega-3, EPA + DHA, (fish oil) 1000 MG capsule take 1 Capsule by Oral route 2 times every day 04/14/20 21 Active Eliquis 2.5 MG tablet Take 1 tablet (2.5 mg) by mouth 2 times daily. 180 tablet 3 07/16/19 24 Active acetaminophen (Tylenol 8 Hour) 650 MG ER tablet TAKE 1 TABLET BY MOUTH EVERY 8 (EIGHT) HOURS IF NEEDED FOR MILD PAIN. DO NOT CRUSH, CHEW, OR SPLIT. 60 tablet 6 01/21/20 24 Active Apoaequorin 10 MG capsuleIndicatio ns:Memory impairment Take 1 each by mouth Once per day. 90 capsule 3 01/21/20 24 Active pravastatin (Pravachol) 40 MG tablet TAKE 1 TABLET BY MOUTH AT BEDTIME 90 tablet 3 02/18/20 24 Active omeprazole (PriLOSEC) [address] capsule TAKE 1 CAPSULE BY ORAL ROUTE EVERY MORNING NEEDED 90 capsule 3 02/22/20 24 Active fluticasone (Flonase) 50 MCG/ACT nasal spray SPRAY 2 SPRAYS INTO EACH NOSTRIL EVERY DAY 48 mL 3 05/30/20 24 Active lisinopril 20 MG tabletIndication s:Essential hypertension TAKE 1 TABLET BY MOUTH EVERY DAY 90 tablet 3 08/18/19 25 Active cetirizine (ZyrTEC) 10 MG tablet TAKE 1 TABLET BY MOUTH EVERY MORNING FOR CONGESTION 90 tablet 3 08/18/19 25 Active furosemide (Lasix) 20 MG tablet TAKE 1 TABLET BY MOUTH TWICE A DAY 180 tablet 3 08/18/19 25 Active lisinopril 20 MG tabletIndication s:Essential hypertension TAKE 1 TABLET BY MOUTH EVERY DAY 90 tablet 3 07/16/19 24 025 Discontinued cetirizine (ZyrTEC) 10 MG tablet TAKE 1 TABLET BY MOUTH EVERY MORNING FOR CONGESTION 90 tablet 3 09/21/19 24 025 Discontinued furosemide (Lasix) 20 MG tablet TOME AGUEDA TABLETA DOS VECES AL DONNA 180 tablet 2 12/20/19 24 025 Discontinued Active Problems Problem Noted Date Diagnosed Date [...] Plan (06/26/2022 2:18 PM EST): Saw second 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 pump 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 chief Hold Rosa Papito BMP today Essential hypertension 03/14/2015 Assessment & [...] avoid restaurant foods, cook at home with MANAGER LANDSCAPE and do not add salt Assessment & [...] Encounters Date Type Department Care Team Description 08/17/2024 Refill [facility] [address] [place] [address] Ml Bess MD Essential hypertension from Last 3 Months Immunizations Name Administration [...] series) 12/26/2015 Depression Screening 10/08/2023 10/07/2022, 10/08/19 23 SDOH Screening 10/08/2023 10/07/2022 COVID-19 Vaccine ( [...] Procedure Name Priority Date/Time Associated Diagnosis Comments CALCIUM Routine 09/06/2024 9:29 AM EDT CREATININE, SERUM Routine 09/06/2024 9:2 9 AM EDT UREA NITROGEN (BUN) Routine 09/06/2024 9 :29 AM EDT ELECTROLYTE PANEL Routine 09/06/2024 9:2 9 AM EDT CBC WITH AUTO DIFFERENTIAL Routine 09/06/2024 9:29 AM EDT HEMOGLOBIN A1C Routine 08/06/2023 12:35 PM EST Swelling of both lower extremities LIPID PANEL, STANDARD Routine 11/14/2020 8:07 AM EDT from Last 3 Months or Most Recently Relevant to Health Maintenance Results * (ABNORMAL) Creatinine, Serum (09/06/2024 9:29 AM EDT) Creatinine, Serum 1.71(H) 0.5 - 1.4 mg/dL [facility] Estimated Glomerular Filt Rate 38 [facility] Comment:Chronic Kidney Disea se: Estimated GFR < 60 mL/min/1.02n6Bwfede Kidney Disease: Estimated GFR < 15 mL/min/1.73m2 09/06/2024 9:29 AM EDT 09/06/2024 9:29 AM EDT us Generic External Data Provider LAB BLOOD ORDERAB LES Final Result Performing Organization Address City/State/[facility] Co de Phone Number [facility] [address] [place] [phone] * (ABNORMAL) CBC auto differential (09/06/2024 9:29 AM EDT) White Blood Count 7.1 4.8 - 10.8 X10*3/uL [facility] Red Blood Count 3.64(L) 4.60 - 5.80 X10*6/uL [facility] Hemoglobin 11.7(L) 14.0 - 18.0 g/dl [facility] Hematocrit 34.8(L) 42.0 - 52.0 % [facility] Mean Corpuscular Volume 95.6 80.0 - 98.0 fL [facility] Mean Corpuscular Hemoglobin 32.1 27.0 - 33.0 pg [facility] Mean Corpuscular HGB Conc 33.6 31.0 - 36.0 g/dl [facility] Red Cell Distribution Width 12.9 11.0 - 16.0 % [facility] Platelet Count 227 160 - 400 X10*3/uL [facility] Mean Platelet Volume 9.7 9.4 - 12.4 fL [facility] Neutrophils Percent Auto 60.0 45 - 73 % [facility] Imm Gran Pct Auto 0.3 0.0 - 0.4 % [facility] Lymphocytes Percent Auto 24.5 20 - 40 % [facility] Monocytes Percent Auto 11.7(H) 2 - 11 % [facility] Eosinophils Percent Auto 2.8 0 - 4 % [facility] Basophils Percent Auto 0.7 0 - 2 % [facility] NRBC Pct Auto 0.0 0.0 - 0.2 /100WBC [facility] Neutrophils Absolute Auto 4.2 2.0 - 8.3 x10*3/uL [facility] Imm Gran Abs Auto 0.02 0.00 - 0.03 X10*3/uL [facility] Lymphocytes Absolute Auto 1.7 1.2 - 4.9 X10*3/uL [facility] Monocytes Absolute Auto 0.8 0.1 - 1.2 X10*3/uL [facility] Eosinophils Absolute Auto 0.2 0.0 - 0.4 X10*3/uL [facility] Basophils Absolute Auto 0.1 0.0 - 0.2 X10*3/uL [facility] NRBC Abs Auto 0.000 0.0 - 0.012 X10*3/uL [facility] 09/06/2024 9:29 AM EDT 09/06/2024 9:29 AM EDT us Generic External Data Provider LAB BLOOD ORDERAB LES Final Result [facility] [address] [place] [phone] * (ABNORMAL) BUN (Blood Urea Nitrogen) (09/06/2024 9:29 AM EDT) Urea Nitrogen (BUN) 39(H) 9 - 16 mg/dL [facility] 09/06/2024 9:29 AM EDT 09/06/2024 9:29 AM EDT us Generic External Data Provider LAB BLOOD ORDERAB LES Final Result Performing Organization Address [facility]/ZIP Co de Phone Number [facility] [address] [place] [phone] * Calcium (09/06/2024 9:29 AM EDT) Pathologist [facility] Calcium 9.7 8.4 - 10.2 mg/dL [facility] 09/06/2024 9:29 AM EDT 09/06/2024 9:29 AM EDT Generic External Data Provider LAB BLOOD ORDERAB LES Final Result Performing Organization Address [facility] Phone Number [facility] [address] [place] [phone] * (ABNORMAL) Electrolyte Panel (09/06/2024 9:29 AM EDT) Pathologist [facility] Sodium 140 135 - 145 mmol/L [facility] Potassium 4.0 3.3 - 5.1 mmol/L [facility] Chloride 107 96 - 108 mmol/L [facility] Carbon Dioxide 26 22 - 29 mmol/L [facility] Anion Gap 11(L) 12 - 20 [facility] 09/06/2024 9:29 AM EDT 09/06/2024 9:29 AM EDT Generic External Data Provider LAB BLOOD ORDERAB LES Final Result Performing Organization Address [facility] Co de Phone Number [facility] [address] [place] [phone] * Hemoglobin A1c (08/06/2023 12:35 PM EST) Hemoglobin A1c 5.4 <6.0 % [facility] Comment:Hemoglobin A1C Refer ence Range Adults: 4.8 - 6.0 % Non diabetic: < 6.0 % Goal: < 7.0 %Additional Action Suggested: > 8.0 %Note: Hemoglobin A1c results are invalid for patients with abnormal amounts of HbF. Blood transfusions may impact the HbA1c concentration in the patient sample. Estimated Average Glucose 108 mg/dL [facility] Comment:eAG = Estimated ave rage glucose which is %A1C expressed asaverage glucose, using the formula of the K4Z-LvjpnuoKcrodhv Glucose study (ADAG), Diabetes Care, Vol.31,#8,2007 Blood Venous blood specimen / Unknown 08/06/2023 12:35 PM EST 08/06/2023 12:35 PM EST us Ml Bess MD LAB BLOOD ORDERABLES Final Res ult [facility] [address] [place] [phone] * LIPID PANEL, STANDARD (11/14/2020 8:07 [...] of LDL-C. ?? Hernando NOLASCO et al. JOSEPHINE. 2013;310(19): 1421-1890 ?? (http://education.Evolver/faq/HVB588) Non-HDL Cholesterol 95 <130 mg/dL (calc) [facility] Comment: For patients with diabetes plus 1 major ASCVD risk ?? factor, treating to a non-HDL-C goal of <100 mg/dL ?? (LDL-C of <70 mg/dL) is considered a therapeutic ?? option. Triglycerides 68 <150 mg/dL [facility] 11/14/2020 8:07 AM EDT us Shayy Lopez DISTRIBUTION DRIVER LAB BLOOD ORDERABLES Final Result [facility] [address] from Last 3 Months or Most Recently Relevant to Health Maintenance Insurance [facility] Care Teams Tavern Operator Relationship Specialty Start Date End Date Ml Bess MD [address] [place] [phone] PCP - General Family Medicine 01/28/21
[2024-09-06 11:26] LABS: Appearance Urine Clear; Color Urine Yellow; Glucose Urine UA Negative (Negative); Leukocyte Esterase Urine Negative (Negative); Nitrite Urine Negative (Negative); UMIC TRIGGER UA YES; Urine Blood Trace (Negative); Urine Ketones Negative (Negative); Urine Protein Negative (Neg-Trace)
[2024-09-06 11:32] LABS: Bacteria Urine None Seen (None Seen); RBC Urine 0-2 /HPF (0-2); Squamous Epithelial Cell Urine 0-2 /HPF (0-2); WBC Urine 0-5 /HPF (0-5)
[2024-09-06 12:01] LABS: Creatinine Urine 62.09 mg/dL; Total Protein Urine Random < 7 mg/dL (<12)
[2024-09-08 16:44] LABS: IgA 310 mg/dL (70-320); IgG 1506 mg/dL (600-1540); IgM 129 mg/dL (50-300)
== END 2024-09-06 09:12 | disposition home or self-care (01) ==
LOC: HO.LAB 09:11
PROVIDERS: PCP General Practice; Visit Provider Internal Medicine Nephrology
DX: I12.9 Hypertensive chronic kidney disease with stage 1 through stage 4 chronic kidney disease, or unspecified chronic kidney disease (principal); N18.30 Chronic kidney disease, stage 3 unspecified
CPT/HCPCS: 80051; 81001; 81003; 82310; 82565; 82570; 82784; 84156; 84520; 85025; 86334; 86335

== ENCOUNTER 2024-09-15 14:05 | Outpatient (AMB) | payer OTHER, SELFPAY ==
[2024-09-15 14:18] VITALS: BP 118/57; PULSE 56; O2SAT 98; BMI 25.9
--- NOTE | 2024-09-15 14:18 | HO.NEPHOV_ITS ---
Vital Signs 09/15/24 14:18 Height 5 ft 7 in Weight 165 lb 4 oz BMI 25.9 BP 118/57 L Blood Pressure Location Rt brachial Position Sitting Pulse 56 Pulse Source Pulse Oximeter Pulse Oximetry (%) 98 Oxygen Delivery Method Room Air Intake Visit Reasons: CKD-Conf Food Beverage Supervisor Required: No Accompanied by: Self / Same As Patient Allergies shrimp Allergy (Intermediate, Verified 09/15/24 14:20) SWELLING Do you need a note to return to daycare/school/sports/work: No HPI Comments Details: Ras was seen for F/U of CKD and hypertension. He was accompanied by Corina , his step daughter during this visit. He is 83 years of age who has long standing H/O hypertension. He is on ACEI which he is tolerating very well. He is not a diabetic. He is not known to have significant proteinuria. He has no H/O CAD, CVA, CHF, carotid stenosis, PAD or known H/O PANKAJ. He denied hypercalcemia, weight loss, hematuria, H/O malignancy,hearing deafness, recurrent UTI, new bone or back pain, sinusitis, photosensitivity, skin rashes, edema, nausea, vomiting, diarrhea, SOB, PND or orthopnea. He does not take OTC medications or excess NSAID's. He feels well and did not have any specific complaint at the time of this office visit. His serum creatinine had gone up to 2.38 which has now improved to 1.72 [facility] Medical History Chronic kidney disease, stage 3 Atrial flutter Depression Pulmonary nodules GERD (gastroesophageal reflux disease) Other and unspecified hyperlipidemia Vitamin D deficiency BPH (benign prostatic hyperplasia) Essential hypertension Pre-diabetes Surgical History History of umbilical hernia repair Family History Father No problems noted. Mother No problems noted. 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 Review of Systems Const All systems reviewed & are unremarkable except as noted in HPI and below Physical Exam Vital Signs: Last Vital Signs Pulse 56 09/15/24 14:18 BP 118/57 L 09/15/24 14:18 Pulse Ox 98 09/15/24 14:18 Oxygen Delivery Method Room Air 09/15/24 14:18 BMI result Body Mass Index 25.9 Const General: comfortable and no acute distress Orientation/consciousness: patient oriented x3 HEENT Head: Yes normocephalic Mouth: Normal oral and palatal mucosa present Eyes EOM: EOMs intact bilaterally Neck Neck: Yes supple Resp Auscultation: clear to auscultation bilaterally Cardio Jugular venous distension: no JVD Rate: regular rate GI Palpation (GI): Soft to palpation Auscultation: normal bowel sounds General: Yes no CVA tenderness Back/Spine/Pelvis Back: no CVA tenderness Skin General skin exam: no rashes or lesions noted Neuro General: patient oriented x3 and moves all extremities Extrem General: Yes no pedal edema Results Reviewed Nephrology Results: Hgb 11.7 g/dl (14.0-18.0) L 09/06/24 WBC 7.1 X10*3/uL (4.8-10.8) 09/06/24 Plt Count 227 X10*3/uL (160-400) 09/06/24 Sodium 140 mmol/L (135-145) 09/06/24 Potassium 4.0 mmol/L (3.3-5.1) 09/06/24 Chloride 107 mmol/L (96-108) 09/06/24 Carbon Dioxide 26 mmol/L (22-29) 09/06/24 BUN 39 mg/dL (9-16) H 09/06/24 Creatinine 1.71 mg/dL (0.5-1.4) H 09/06/24 Calcium 9.7 mg/dL (8.4-10.2) 09/06/24 Urine Protein Negative mg/dL (Neg-Trace) 09/06/24 Urine Creatinine 62.09 mg/dL 09/06/24 Protein/Creatinin Ratio TNP 09/06/24 Assessment & Plan Assessment & Plan (1) Chronic kidney disease, stage 3: Code(s): N18.30 - Chronic kidney disease, stage 3 unspecified Category: Medical Qualifiers: Chronic kidney disease stage 3 subtype: stage 3a (GFR 45-59) Qualified Code(s): N18.31 - Chronic kidney disease, stage 3a Plan Ras has CKD 3 most likely due to vascular disease, hypertension and age related loss of renal function. He recently had NICHOLE which has improved to baseline. His UO is good and is not known to have prostatic malignancy. He is on ACEI which he is tolerating well. He avoids NSAID's and maintain good hydration. He will be a candidate for low dose SGLT2i which I plan to initiate with time after reviewing data. Answered all questions. F/U given Orders: Orders Blood Urea Nitrogen 3 Months N18.31 - Chronic kidney disease, stage 3a Creatinine 3 Months N18.31 - Chronic kidney disease, stage 3a Electrolytes 3 Months N18.31 - Chronic kidney disease, stage 3a Calcium 3 Months N18.31 - Chronic kidney disease, stage 3a Coding Level of Care Code Est Pt Level 4 (21719) Diagnoses Stage 3a chronic kidney disease N18.31 Chronic kidney disease stage 3 subtype: stage 3a (GFR 45-59)
--- OUTSIDE RECORDS SUMMARY | 2024-09-15 14:28 | XMS_ITS | Clinical Summary ---
Author Organization [facility], Address [address] [place] [address] [place] [phone] Phone Care Team Providers Care Carpenter General Name Role Phone Ml Bess MD Primary [...] time each day Active ergocalciferol 1.25 MG (86635 UT) capsule 1 Active dilTIAZem CD (CARDIZEM [...] Hypertensive disorder 12/28/20192021 Microalbuminuria 12/28/2019 01/17/2021 Immunizations Immunization Administration Dates Next Due Influenza Split High [...] Due Date Last Done Comments Influenza Vaccine (Season Ended) 2025 04/21/2021, 02/12/2020, 02/23/2019, Additional history exists Pneumococcal Vaccine: 50+ Years Completed 05/02/2019, 03/14/2015, 09/30/2009 Hepatitis B Vaccine Aged Out No longe r eligible based on patient's age to complete this topic Insurance [facility] One Care Dual SNP ([id number]) Formerly [facility] Care Teams Carpenter General Relationship Specialty Start Date End Date Ml Bess MD [address] [place] [address] PCP - General Laboratory Courier 05/04/23
--- OUTSIDE RECORDS SUMMARY | 2024-09-15 14:28 | XMS_ITS | Data Portability ---
Author Organization [employer] [facility] [place] - [employer] Address [address] [place] [phone] Care Team Providers Care Liability Claims Manager Name Role Phone [facility] Referring Provider [facility] Referring Provider Assessment Encounter Date [...] tablets in a dose pack 2022 023 [facility][id number], [address] [facility], [place], [address], 17:15:59 Patient TargetsNo targets recorded. Patient InstructionsNo [...] Address Organization Details Last Updated DateTime 3 90095.1 28 g 82 /min 16 /min 170.18 cm 100 % 100 % 97.8 [degF] 130 mm[Hg] 71 mm[Hg] Not Available [employer] - production 3 16:50:06 Social History None recorded. Functional Status None recorded. Mental Status None recorded. Family History Nothing Reported. Medical History No medical history recorded. Past Encounters Encounter ID Performer Location Encounter Start Date Encounter Closed Date Diagnosis/Indication Diagnosis SNOMED-CT Code Diagnosis ICD10 Code Diagnosis Note [id number] Ronda Crisostomo MD Main - [address] [phone] 05/14/2023 16:49:55 05/17/2023 16:47:56 COVID-19 239362703 U07.1 Health Concerns Section Related Observation LastModified by Organization Dimas ls LastModified Time None Recorded Concern Status LastModified by Organization Details LastModified Time None Recorded Advance Directives Directive None Recorded Payers Encounter Date Sequence Insurance Name Policy Number Policy Humphrey Covered Member ID Humphrey Member ID Guarantor Name 05/14/2023 1 [facility] - DOS ON OR AFTER 2022 - DUAL ELIGIBLE - [employer] OPT[employer] AND ONE C[employer] (MEDICARE REPLACEMENT/AD VANTAGE - HMO) Ras Pavon [id number] Ras Pavon Notes Date Note Type Note [...] .................. .................. .................. .................. .................. .................. ............... Glove Turner Note From Toñito Leigh: [facility] arrives to find 82-year-old male seated [...] AC. POC blood work drawn and analyzed. [facility] consulted, orders received for 500 mL of normal saline, reassessment and repeat, 500 if needed. Orders fulfilled, 1 L of normal saline given IV. IV discontinued. Prescription sent to pharmacy. [facility] clear . .................. .................. .................. .................. .................. .................. .................. ............... Disposition: Fulfilled Ronda Crisostomo MD [address] [facility],[address], [place], [address], [email or web address] 05/14/2023 17:30:41
--- OUTSIDE RECORDS SUMMARY | 2024-09-15 14:28 | XMS_ITS | Encounter Summary ---
Author Organization [facility], Address [address] [place] [address] Phone Care Team Providers Care Hepatologist Name Role Phone Ml Bess MD Primary Care Provider + [phone] Encounter Details Date Type Department Care Team (Late st Contact Info) Description 04/29/2022 Documentation Only [facility], [address] [place] [phone] Heather Isaacs PA Social History Tobacco Use [...] on filedocumented in this encounter Care Teams Hepatologist Relationship Specialty Start Date End Date Ml Bess MD [address] [place] [address] PCP - General Drywall Mechanic 05/04/23 documented as of this encounter
--- OUTSIDE RECORDS SUMMARY | 2024-09-15 14:28 | XMS_ITS | Encounter Summary ---
Author Organization [facility], Address [address] [place] [address] Phone Care Team Providers Care Instructional Leader Name Role Phone Ml Bess MD Primary Care Provider + [phone] Encounter Details Date Type Department Care Team (Late st Contact Info) Description 07/30/2022 Documentation Only [facility], [address] [place] [phone] Heather Isaacs PA Social History Tobacco Use [...] on filedocumented in this encounter Care Teams Instructional Leader Relationship Specialty Start Date End Date Ml Bess MD [address] [place] [address] PCP - General Warehouse Team Member 05/04/23 documented as of this encounter
--- OUTSIDE RECORDS SUMMARY | 2024-09-15 14:28 | XMS_ITS | Encounter Summary ---
Author Organization [facility], Address [address] [place] [address] Phone Care Team Providers Care Corporate Quality Assurance Manager Name Role Phone Ml Bess MD Primary Care Provider [phone] Reason for Visit * Reason Comments Med Refill Encounter Details Date Type Department Care Team (Late st Contact Info) Description 07/03/2021 Refill [facility] [address] [facility] [phone] Laci Seay MD [address] [place] [address] Social History Tobacco Use Types Packs/Day Years [...] on filedocumented in this encounter Care Teams Corporate Quality Assurance Manager Relationship Specialty Start Date End Date Ml Bess MD [address] [place] [address] PCP - General Airborne Mission Systems 05/04/23 documented as of this encounter
--- OUTSIDE RECORDS SUMMARY | 2024-09-15 14:28 | XMS_ITS | Encounter Summary ---
Author Organization [facility], Address [address] [place] [address] Phone Care Team Providers Care Bindery Machine Feeder Offbearer Name Role Phone Ml Bess MD Primary Care Provider + [phone] Encounter Details Date Type Department Care Team (Late st Contact Info) Description 09/17/2021 Documentation Only [facility], [address] [place] [address] Piedad Lamas NP [address] [place] [address] Social History Tobacco Use Types Packs/Day Years [...] on filedocumented in this encounter Care Teams Bindery Machine Feeder Offbearer Relationship Specialty Start Date End Date Ml Bess MD [address] [place] [address] PCP - General Soda Fountain Manager 05/04/23 documented as of this encounter
--- OUTSIDE RECORDS SUMMARY | 2024-09-15 14:28 | XMS_ITS | Encounter Summary ---
Author Organization [facility], Address [address] [place] [address] Phone Care Team Providers Care Hair Or Beauty Salon Assistant Name Role Phone Ml Bess MD Primary Care Provider + [phone] Encounter Details Date Type Department Care Team (Late st Contact Info) Description 04/28/2022 Documentation Only [facility], [address] [place] [phone] Heather Isaacs PA Social History Tobacco Use [...] on filedocumented in this encounter Care Teams Hair Or Beauty Salon Assistant Relationship Specialty Start Date End Date Ml Bess MD [address] [place] [address] PCP - General Bowling Floor Desk Clerk 05/04/23 documented as of this encounter
--- OUTSIDE RECORDS SUMMARY | 2024-09-15 14:28 | XMS_ITS | Encounter Summary ---
Author Organization [facility] Address [address] [place] [address] [address] [place] [address] Care Team Providers Care Field Test Engineer Name Role Phone Ml Bess MD Primary Care Provider [phone] Reason for Visit * Reason Comments Med Refill Encounter Details Date Type Department Care Team (Late st Contact Info) Description 02/24/2023 Refill [facility] [address] [place], [place] [phone] Ml Bess MD [address] [place], [place] [phone] Social History Tobacco Use Types Packs/Day Years [...] on filedocumented in this encounter Care Teams Field Test Engineer Relationship Specialty Start Date End Date Ml Bess MD [address] [place], [place] [phone] PCP - General Family Medicine 01/28/21 documented as of this encounter
--- OUTSIDE RECORDS SUMMARY | 2024-09-15 14:28 | XMS_ITS | Encounter Summary ---
Author Organization [facility] Address [address] [place] [address] [place] [address] Care Team Providers Care Stave Log Cut Off Saw Operator Name Role Phone Ml Bess MD Primary Care Provider Reason for Visit * Reason Comments Med Refill Encounter Details Date Type Department Care Team ([facility] st Contact Info) Description 01/22/2023 Refill [facility] [address] [place], [place] [phone] Summer Fernandez FNP [address] [place] [address] Dept [place] [address] Social History Tobacco Use Types Packs/Day Years [...] on filedocumented in this encounter Care Teams Stave Log Cut Off Saw Operator Relationship Specialty Start Date End Date Ml Bess MD [address] [place], [place] [phone] PCP - General Family Medicine 01/28/21 documented as of this encounter
--- OUTSIDE RECORDS SUMMARY | 2024-09-15 14:28 | XMS_ITS | Clinical Summary ---
Author Organization [employer] Address [address] [facility] 7t [place] [address] Care Team Providers Care Lumber Straightened Name Role Phone Ml Bess MD Primary [...] Plan (06/26/2022 2:18 PM EST): Saw second crab picker Hold Rosa Papito BMP today Essential hypertension [...] avoid restaurant foods, cook at home with DRY KILN LOADER and do not add salt Assessment & [...] Type Department Care Team Description 08/17/2024 Refill [facility] [address] [place] [address] Ml Bess MD Essential hypertension from Last [...] Procedure Name Priority Date/Time Associated Diagnosis Comments IMMUNOFIXATION, URINE Routine 09/06/2024 10:10 AM EDT PROTEIN CREATININE RATIO, URINE Routine 09/06/2024 10:10 AM EDT URINALYSIS, COMPLETE Routine 09/06/2024 10:10 AM EDT IMMUNOFIXATION, SERUM Routine 09/06/2024 9:29 AM EDT CALCIUM Routine 09/06/2024 9:29 AM EDT CREATININE, [...] Recently Relevant to Health Maintenance Results * Protein Creatinine Ratio, Urine (09/06/2024 10:10 AM EDT) Creatinine, Urine 62.09 mg/dL [facility] Protein, Total, Random Urine <7 <12 mg/dL [facility] Protein/Creatin ine Ratio, Ur TNP <0.2 [facility] Comment:Unable to calculate urine protein creatinine ratio due tolow creatinine or protein result. 09/06/2024 10:1 0 AM EDT 09/06/2024 10:48 AM EDT us Generic External Data Provider LAB URINE ORDERAB LES Final Result [facility] [address] [place] [phone] * Immunofixation (NEMESIO), Urine (09/06/2024 10:10 AM EDT) NEMESIO Interpretation SEE NOTE [facility] Comment:Faint Free monoclona l kappa band present.The supplier of the testing reagents for this assayhas changed. Detection of small monoclonal proteins mayvary by test system.THIS TEST WAS PERFORMED AT:[facility] [place] [phone] NAPIER MD 09/06/2024 10:1 0 AM EDT 09/06/2024 10:48 AM EDT Generic External Data Provider LAB URINE ORDERAB LES Final Result Performing Organization Address [facility] Co de Phone Number [facility] [address] [place] [address] [phone] * Urinalysis Complete (09/06/2024 10:10 AM EDT) Color Urine Yellow [facility] Appearance Urine Clear [facility] PH 6.0 5.0 - 9.0 [facility] Glucose Urine UA Negative Negative mg/dL [facility] Urine Blood Trace Negative [facility] Specific [place] - Urine 1.010 1.005 - 1.025 [facility] Urine Protein Negative Neg-Trace mg/dL [facility] Urine Ketones Negative Negative mg/dL [facility] Nitrite Urine Negative Negative [facility] Leukocyte Esterase Urine Negative Negative [facility] RBC Urine 0-2 0 - 2 /HPF [facility] Urine WBC 0-5 0 - 5 /HPF [facility] Urine Squamous Epithelial Cell 0-2 0 - 2 /HPF [facility] Urine Bacteria None Seen None Seen [facility] Hyaline Casts, Urine 3-5 0 - 2 /LPF [facility] 09/06/2024 10:1 0 AM EDT 09/06/2024 10:48 AM EDT Generic External Data Provider LAB URINE ORDERAB LES Final Result Performing Organization Address [facility] Co de Phone Number [facility] [address] [place] [address] [phone] * (ABNORMAL) Creatinine, Serum (09/06/2024 9:29 AM EDT) Creatinine, Serum 1.71(H) 0.5 - 1.4 mg/dL [facility] Estimated Glomerular Filt Rate 38 [facility] Comment:Chronic Kidney Disea se: Estimated GFR < 60 mL/min/1.31t0Jthqel Kidney Disease: Estimated GFR < 15 mL/min/1.73m2 09/06/2024 9:29 AM EDT 09/06/2024 9:29 AM EDT us Generic External Data Provider LAB BLOOD ORDERAB LES Final Result [facility] [address] [place] [address] [phone] * (ABNORMAL) CBC auto differential (09/06/2024 9:29 AM EDT) White Blood Count 7.1 4.8 - 10.8 X10*3/uL [facility] Red Blood Count 3.64(L) 4.60 - 5.80 X10*6/uL [facility] Hemoglobin 11.7(L) 14.0 - 18.0 g/dl [facility] Hematocrit 34.8(L) 42.0 - 52.0 % [facility] Mean Corpuscular Volume 95.6 80.0 - 98.0 fL [facility] Mean Corpuscular Hemoglobin 32.1 27.0 - 33.0 pg [facility] Mean Corpuscular HGB Conc 33.6 31.0 - 36.0 g/dl [facility] Red Cell Distribution Width 12.9 11.0 - 16.0 % [facility] Platelet Count 227 160 - 400 X10*3/uL [facility] Mean Platelet Volume 9.7 9.4 - 12.4 fL [facility] Neutrophils Percent Auto 60.0 45 - 73 % [facility] Imm Gran Pct Auto 0.3 0.0 - 0.4 % [facility] Lymphocytes Percent Auto 24.5 20 - 40 % [facility] Monocytes Percent Auto 11.7(H) 2 - 11 % [facility] Eosinophils Percent Auto 2.8 0 - 4 % [facility] Basophils Percent Auto 0.7 0 - 2 % [facility] NRBC Pct Auto 0.0 0.0 - 0.2 /100WBC [facility] Neutrophils Absolute Auto 4.2 2.0 - 8.3 x10*3/uL [facility] Imm Gran Abs Auto 0.02 0.00 - 0.03 X10*3/uL [facility] Lymphocytes Absolute Auto 1.7 1.2 - 4.9 X10*3/uL [facility] Monocytes Absolute Auto 0.8 0.1 - 1.2 X10*3/uL [facility] Eosinophils Absolute Auto 0.2 0.0 - 0.4 X10*3/uL [facility] Basophils Absolute Auto 0.1 0.0 - 0.2 X10*3/uL [facility] NRBC Abs Auto 0.000 0.0 - 0.012 X10*3/uL [facility] 09/06/2024 9:29 AM EDT 09/06/2024 9:29 AM EDT us Generic External Data Provider LAB BLOOD ORDERAB LES Final Result [facility] [address] [place] [phone] * Immunofixation, Serum (09/06/2024 9:29 AM EDT) IMMUNOGLOBULIN G 1506 600 - 1540 mg/dL [facility] IMMUNOGLOBULIN A 310 70 - 320 mg/dL [facility] Immunoglobulin M 129 50 - 300 mg/dL [facility] Comment:THIS TEST WAS PERFOR MED AT:[facility] [place] [phone] NAPIER MD Immunofixation Result SEE NOTE [facility] Comment:IgG kappa monoclonal band present. 09/06/2024 9:29 AM EDT 09/06/2024 9:29 AM EDT us Generic External Data Provider LAB BLOOD ORDERAB LES Final Result Performing Organization Address [facility] Co de Phone Number [facility] [address] [place] [phone] * (ABNORMAL) BUN (Blood Urea Nitrogen) (09/06/2024 9:29 AM EDT) Urea Nitrogen (BUN) 39(H) 9 - 16 mg/dL [facility] 09/06/2024 9:29 AM EDT 09/06/2024 9:29 AM EDT Generic External Data Provider LAB BLOOD ORDERAB LES Final Result Performing Organization Address [facility] Co de Phone Number [facility] [address] [place] [phone] * Calcium (09/06/2024 9:29 AM EDT) Calcium 9.7 8.4 - 10.2 mg/dL [facility] 09/06/2024 9:29 AM EDT 09/06/2024 9:29 AM EDT Generic External Data Provider LAB BLOOD ORDERAB LES Final Result Performing Organization Address [facility] de Phone Number [facility] [address] [place] [phone] * (ABNORMAL) Electrolyte Panel (09/06/2024 9:29 AM EDT) Sodium 140 135 - 145 mmol/L [facility] Potassium 4.0 3.3 - 5.1 mmol/L [facility] Chloride 107 96 - 108 mmol/L [facility] Carbon Dioxide 26 22 - 29 mmol/L [facility] Anion Gap 11(L) 12 - 20 [facility] 09/06/2024 9:29 AM EDT 09/06/2024 9:29 AM EDT us Generic External Data Provider LAB BLOOD ORDERAB LES Final Result Performing Organization Address [facility]/ZIP Co de Phone Number [facility] [address] [place] [phone] * Hemoglobin A1c (08/06/2023 12:35 PM EST) Hemoglobin A1c 5.4 <6.0 % [facility] Comment:Hemoglobin A1C Refer ence Range Adults: 4.8 - 6.0 % Non diabetic: < 6.0 % Goal: < 7.0 %Additional Action Suggested: > 8.0 %Note: Hemoglobin A1c results are invalid for patients with abnormal amounts of HbF. Blood transfusions may impact the HbA1c concentration in the patient sample. Estimated Average Glucose 108 mg/dL [facility] Comment:eAG = Estimated ave rage glucose which is %A1C expressed asaverage glucose, using the formula of the R5H-PztizouEpkwkmb Glucose study (ADAG), Diabetes Care, Vol.31,#8,Jan. 2007 Blood Venous blood specimen / Unknown 08/06/2023 12:35 PM EST 08/06/2023 12:35 PM EST us Ml Bess MD LAB BLOOD ORDERABLES Final Res ult Performing Organization Address [facility] Co de Phone Number [facility] [address] [place] [phone] * LIPID PANEL, STANDARD (11/14/2020 8:07 [...] ?? LDL-C is now calculated using the Hernando-Samuels ?? calculation, which is a validated novel method providing ?? better accuracy than the Friedewald equation in the ?? estimation of LDL-C. ?? Hernando SS et al. JOSEPHINE. 2013;310(19): 6724-0014 ?? (http://InSpa.M2G/faq/LVL365) Non-HDL Cholesterol 95 <130 mg/dL (calc) [facility] Comment: For patients with diabetes plus 1 major ASCVD risk ?? factor, treating to a non-HDL-C goal of <100 mg/dL ?? (LDL-C of <70 mg/dL) is considered a therapeutic ?? option. Triglycerides 68 <150 mg/dL [facility] 11/14/2020 8:07 AM EDT us Shayy Lopez MANAGER FORENSIC LAB BLOOD ORDERABLES Final Result [facility] [address] from Last 3 Months or Most Recently Relevant to Health Maintenance Insurance [facility] Care Teams Lumber Straightened Relationship Specialty Start Date End Date Ml Bess MD [address] [place] [address] [place] [address] PCP - General Family Medicine 01/28/21
--- OUTSIDE RECORDS SUMMARY | 2024-09-15 14:28 | XMS_ITS | Encounter Summary ---
Author Organization [facility], Address [address] [place] [address] Phone Care Team Providers Care Lead Laying And Gluing Machine Operator Name Role Phone Ml Bess MD Primary Care Provider [phone] Encounter Details Date Type Department Care Team (Late st Contact Info) Description 12/16/2021 Documentation Only [facility], [address] [place] [address] Laci Seay MD [address] [facility] [place] [phone] Social History Tobacco Use Types Packs/Day Years [...] on filedocumented in this encounter Care Teams Lead Laying And Gluing Machine Operator Relationship Specialty Start Date End Date Ml Bess MD [address] [place] [address] PCP - General Washer Meat 05/04/23 documented as of this encounter
--- OUTSIDE RECORDS SUMMARY | 2024-09-15 14:28 | XMS_ITS | Encounter Summary ---
Author Organization [employer] Address [address] [facility] 7t [place] [address] Care Team Providers Care Video Surveillance Technician Name Role Phone Ml Bess MD Primary Care Provider [phone] Encounter Details Date Type Department Care Team (Late st Contact Info) Description 04/26/2023 Telephone [facility] [address] [place], [place] [phone] Ml Bess MD [address] [place], [place] [phone] Social History Tobacco Use Types Packs/Day Years [...] on filedocumented in this encounter Care Teams Video Surveillance Technician Relationship Specialty Start Date End Date Ml Bess MD [address] [place] [address] PCP - General Family Medicine 01/28/21 documented as of this encounter
== END 2024-09-15 14:35 | disposition home or self-care (01) ==
LOC: HO.HKA 14:05
PROVIDERS: PCP General Practice; Visit Provider Internal Medicine Nephrology
DX: N18.31 Chronic kidney disease, stage 3a (principal)
CPT/HCPCS: 99214

== ENCOUNTER → 2024-09-15 14:05 | Outpatient (BNVA) | payer OTHER, SELFPAY | PROVIDERS: PCP General Practice; Visit Provider Internal Medicine Nephrology | DX: I12.9 Hypertensive chronic kidney disease with stage 1 through stage 4 chronic kidney disease, or unspecified chronic kidney disease (principal); N18.31 Chronic kidney disease, stage 3a | CPT/HCPCS: 99212 ==

== ENCOUNTER → 2024-10-24 08:05 | Outpatient (REF) | payer OTHER, SELFPAY ==
--- NOTE | ~2024-10-24 | NM_ITS ---
Lexiscan Myocardial perfusion study Indication: Chest discomfort Technique: The patient was brought in for a Lexiscan perfusion study on 10/24/2024 and was injected 0.4 mg of Lexiscan intravenously. Within a minute of this injection 25 mCi of sestamibi was given intravenously. Images were obtained using the SPECT gamma camera interlaced with the gating device. Images were obtained in supine position. Resting perfusion study was performed on 10/25/2024. Patient was administered 25 mCi of sestamibi intravenously at rest. Images were then obtained in supine position. Total DLP 106 mGy-cm. Images were processed with the software and compared side to side in short axis, horizontal long axis and vertical long axis views. Findings: Raw aquisition reviewed. Both arms by the patient's side The stress perfusion study showed mildly diminished tracer uptake in the distal part of anteroseptal wall and inferolateral wall. These changes persist with CT attenuation correction. The gated study shows normal LV systolic function with calculated LVEF of 64%. LV cavity is normal in size. The gated study shows normal wall thickening and contraction of segments. Resting study shows diminished tracer uptake in the distal part anteroseptal wall and inferolateral wall. The inferolateral defect that improves with CT attenuation correction. Gating at rest reveals normal wall motion with ejection fraction at 61%. The findings are consistent with fixed defects in the distal part of anteroseptal and inferolateral wall, possibly artifactual. No reversible defects. NM/VA cardiolite stress test Impression: 1. Myocardial perfusion imaging study shows no clear evidence of ischemia. Fixed defect in the distal anteroseptal and inferolateral wall. Possibly artifactual. Less likely nontransmural infarct. 2. Gated LVEF is 64% during stress and 61% during rest. 3. Transient ischemic dilatation not present. EKG component of the test reported separately. Electronically signed by: Richie Menezes MD 10/25/2024 12:25 PM EDT
--- NOTE | 2024-10-24 08:09 | CA_ITS ---
Acquisition Time: 2024-10-24 08:24:09 Total Exercise Time: 00:07:03 Test Indications: CP, AFIB/FLUTTER Medications: SEE H&P Protocol: LEXISCAN Max HR: 107 BPM 78% of Pred: 137 BPM Max BP: 132/68 mmHG Max Work Load: 1.2 METS Pharmacological stress test with Lexiscan while pt walked on treadmill at 0.4mph, without any anginal symptoms, with isolated PVCs, with normotensive response to injection. Nondiagnostic EKG for ischemia. In recovery, pt continues to feel good. Nuclear images pending. Test reviewed with Dr. Ruiz. Referred By: Dania Quinonez Electronically Signed By: Kev Hill
--- OUTSIDE RECORDS SUMMARY | 2024-10-24 08:09 | XMS_ITS | Encounter Summary ---
Author Organization [employer] Address [address] [facility] 7t [place] [address] Care Team Providers Care Biomedical Engineering Technologist Name Role Phone Ml Bess MD Primary Care Provider [phone] Encounter Details Date Type Department Care Team (Late st Contact Info) Description 04/26/2023 Telephone [facility] [address] [place], [place] [phone] Ml Bess MD [address] [place], [place] [phone] Social History Tobacco Use Types Packs/Day Years [...] on filedocumented in this encounter Care Teams Biomedical Engineering Technologist Relationship Specialty Start Date End Date Ml Bess MD [address] [place] [address] PCP - General Family Medicine 01/28/21 documented as of this encounter
--- OUTSIDE RECORDS SUMMARY | 2024-10-24 08:09 | XMS_ITS | Encounter Summary ---
Author Organization [employer] Address [address] [place] [address] [place] [address] Care Team Providers Care Project Buyer Name Role Phone Ml Bess MD Primary Care Provider [phone] Reason for Visit * Reason Comments Med Refill Encounter Details Date Type Department Care Team (Late st Contact Info) Description 01/22/2023 Refill [facility] [address] [place], [place] [phone] Summer Fernandez FNP [address] [place] [address] [place] [address] Social History Tobacco Use Types Packs/Day Years [...] on filedocumented in this encounter Care Teams Project Buyer Relationship Specialty Start Date End Date Ml Bess MD [address] [place], [place] [phone] PCP - General Family Medicine 01/28/21 documented as of this encounter
--- OUTSIDE RECORDS SUMMARY | 2024-10-24 08:09 | XMS_ITS | Encounter Summary ---
Author Organization [facility], Address [address] [place] [address] Phone Care Team Providers Care Cheese Weigher Name Role Phone Ml Bess MD Primary Care Provider [phone] Reason for Visit * Reason Comments Med Refill Encounter Details Date Type Department Care Team (Late st Contact Info) Description 07/03/2021 Refill [facility] [address] [place] [facility] [place] [phone] Laci Seay MD [address] [place] [address] Social History Tobacco Use Types Packs/Day Years [...] on filedocumented in this encounter Care Teams Cheese Weigher Relationship Specialty Start Date End Date Ml Bess MD [address] [place] [address] PCP - General C Architect 05/04/23 documented as of this encounter
--- OUTSIDE RECORDS SUMMARY | 2024-10-24 08:09 | XMS_ITS | Encounter Summary ---
Author Organization [facility], Address [address] [place] [address] Phone Care Team Providers Care Skylights Assembler Name Role Phone Ml Bess MD Primary Care Provider [phone] Encounter Details Date Type Department Care Team (Late st Contact Info) Description 12/16/2021 Documentation Only [facility], [address] [place] [address] Laci Seay MD [address] [facility] [place] [phone] Social History Tobacco Use Types Packs/Day Years [...] on filedocumented in this encounter Care Teams Skylights Assembler Relationship Specialty Start Date End Date Ml Bess MD [address] [place] [address] PCP - General Mill Attendant 05/04/23 documented as of this encounter
--- OUTSIDE RECORDS SUMMARY | 2024-10-24 08:09 | XMS_ITS | Encounter Summary ---
Author Organization [facility], Address [address] [place] [address] Phone Care Team Providers Care Housing Management Officer Name Role Phone Ml Bess MD Primary Care Provider [phone] Encounter Details Date Type Department Care Team (Late st Contact Info) Description 04/28/2022 Documentation Only [facility], [address] [place] [phone] Heather Isaacs PA Social History Tobacco Use [...] on filedocumented in this encounter Care Teams Housing Management Officer Relationship Specialty Start Date End Date Ml Bess MD [address] [place] [address] PCP - General Body Straightener 05/04/23 documented as of this encounter
--- OUTSIDE RECORDS SUMMARY | 2024-10-24 08:09 | XMS_ITS | Encounter Summary ---
Author Organization [employer] Address [address] [place] [address] 7t [place] [address] Care Team Providers Care Supply Chain Logistics Manager Name Role Phone Ml Bess MD Primary Care Provider [phone] Reason for Visit * Reason Comments Med Refill Encounter Details Date Type Department Care Team (Late st Contact Info) Description 02/24/2023 Refill [facility] [address] [place], [place] [phone] Ml Bess MD [address] [place], [place] [phone] Social History Tobacco Use Types Packs/Day Years [...] on filedocumented in this encounter Care Teams Supply Chain Logistics Manager Relationship Specialty Start Date End Date Ml Bess MD [address] [place], [place] [phone] PCP - General Family Medicine 01/28/21 documented as of this encounter
--- OUTSIDE RECORDS SUMMARY | 2024-10-24 08:09 | XMS_ITS | Data Portability ---
Author Organization [employer] [facility] Address [address] [place] [address] Care Team Providers Care Highway Truck Driver Name Role Phone [facility] Referring Provider [facility] Referring Provider [phone] Assessment Encounter Date Assessment Date Assessment LastModified [...] tablets in a dose pack 2022 023 [facility][id number], [address] [facility], [place], [address], 17:15:59 Patient TargetsNo targets recorded. Patient InstructionsNo [...] Address Organization Details Last Updated DateTime 3 21617.1 28 g 82 /min 16 /min 170.18 cm 100 % 100 % 97.8 [degF] 130 mm[Hg] 71 mm[Hg] Not Available [employer] - production 3 16:50:06 Social History None recorded. Functional Status None recorded. Mental Status None recorded. Family History Nothing Reported. Medical History No medical history recorded. Past Encounters Encounter ID Performer Location Encounter Start Date Encounter Closed Date Diagnosis/Indication Diagnosis SNOMED-CT Code Diagnosis ICD10 Code Diagnosis Note [id number] Ronda Crisostomo MD Main - [address] [phone] 05/14/2023 16:49:55 05/17/2023 16:47:56 COVID-19 049770570 U07.1 Health Concerns Section Related Observation LastModified by Organization Dimas ls LastModified Time None Recorded Concern Status LastModified by Organization Details LastModified Time None Recorded Advance Directives Directive None Recorded Payers Insurance Date Sequence Insurance Name Policy Number Policy Humphrey Covered Member ID Humphrey Member ID Guarantor Name 08/10/2023 1 [facility] - DOS ON OR AFTER 2022 - DUAL ELIGIBLE - HALFWAY OPTIONS AND ONE CARE (MEDICARE REPLACEMENT/AD VANTAGE - HMO) Ras Pavon [id number] Ras Pavon Notes Date Note Type Note [...] .................. .................. .................. .................. .................. .................. ............... Rn Internal Medicine Note From Toñito Leigh: [facility] 3 arrives to find 82-year-old male [...] AC. POC blood work drawn and analyzed. [facility] consulted, orders received for 500 mL of normal saline, reassessment and repeat, 500 if needed. Orders fulfilled, 1 L of normal saline given IV. IV discontinued. Prescription sent to pharmacy. [facility] 3 clear . .................. .................. .................. .................. .................. .................. .................. ............... Disposition: Fulfilled Ronda Crisostomo MD [address] [facility],[address], [place], [address], [employer] 05/14/2023 17:30:41
--- OUTSIDE RECORDS SUMMARY | 2024-10-24 08:09 | XMS_ITS | Encounter Summary ---
Author Organization [facility], Address [address] [place] [address] Phone Care Team Providers Care Day Haul Or Farm Charter Bus Driver Name Role Phone Ml Bess MD Primary Care Provider [phone] Encounter Details Date Type Department Care Team (Late st Contact Info) Description 07/30/2022 Documentation Only [facility], [address] [place] [phone] Heather Isaacs PA Social History Tobacco Use [...] on filedocumented in this encounter Care Teams Day Haul Or Farm Charter Bus Driver Relationship Specialty Start Date End Date Ml Bess MD [address] [place] [address] PCP - General Buyer Agent 05/04/23 documented as of this encounter
--- OUTSIDE RECORDS SUMMARY | 2024-10-24 08:09 | XMS_ITS | Clinical Summary ---
Author Organization [facility], Address [address] [place] [address] [place] [address] Phone Care Team Providers Care Product Responsibility Liaison Name Role Phone Ml Bess MD Primary [...] time each day Active ergocalciferol 1.25 MG (59973 UT) capsule 1 Active dilTIAZem CD (CARDIZEM [...] Vaccine: 50+ Years Completed 05/02/2019, 03/14/2015, 09/30/2009 Pneumococcal Vaccine: Peds (0 to 5 Years) and At-Risk Patients (6 to 49 Years) Discontinued 05/02/2019, 03/14/2015, 09/30/2009 Hepatitis B Vaccine Aged Out No longe r eligible based on patient's age to complete this topic Insurance [facility] One Care Dual SNP ([id number]) [facility] STEFFANIE BENITEZ [id number] Care Teams Product Responsibility Liaison Relationship Specialty Start Date End Date Ml Bess MD [address] [place] [address] PCP - General Insurance Processing Clerk 05/04/23
--- OUTSIDE RECORDS SUMMARY | 2024-10-24 08:09 | XMS_ITS | Encounter Summary ---
Author Organization [facility], Address [address] [place] [address] Phone Care Team Providers Care Rectangular Tank Cooper Name Role Phone Ml Bess MD Primary Care Provider + [phone] Encounter Details Date Type Department Care Team (Late st Contact Info) Description 09/17/2021 Documentation Only [facility], [address] [place] [address] Piedad Lamas NP [address] [place] [address] Social History Tobacco Use Types Packs/Day Years [...] on filedocumented in this encounter Care Teams Rectangular Tank Cooper Relationship Specialty Start Date End Date Ml Bess MD [address] [place] [address] PCP - General Target Man 05/04/23 documented as of this encounter
--- OUTSIDE RECORDS SUMMARY | 2024-10-24 08:09 | XMS_ITS | Encounter Summary ---
Author Organization [facility], Address [address] [place] [address] Phone Care Team Providers Care Therapy Site Coordinator Name Role Phone Ml Bess MD Primary Care Provider + [phone] Encounter Details Date Type Department Care Team (Late st Contact Info) Description 04/29/2022 Documentation Only [facility], [address] [place] [phone] Heather Isaacs PA Social History Tobacco Use [...] on filedocumented in this encounter Care Teams Therapy Site Coordinator Relationship Specialty Start Date End Date Ml Bess MD [address] [place] [address] PCP - General Geothermal Technician 05/04/23 documented as of this encounter
--- OUTSIDE RECORDS SUMMARY | 2024-10-24 08:10 | XMS_ITS | Clinical Summary ---
Author Organization [employer] Address [address] [facility] 7t [place] [address] Care Team Providers Care Livestock Counter Name Role Phone Ml Bess MD Primary Care Provider [phone] Allergies Active Allergy Reactions Criticality Noted Date [...] times daily. 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 Recheck BMP today Essential hypertension [...] avoid restaurant foods, cook at home with MEDICAL BILLING COORDINATOR and do not add salt Assessment & [...] Type Department Care Team Description 08/17/2024 Refill [facility]INE [address] [place] [address] Ml Bess MD Essential hypertension from Last 3 Months Immunizations Immunization Administration Dates Next Due Influenza High-dose Quadriva [...] patient's age to complete this topic Meningococcal B Vaccine Aged Out No l onger eligible based on patient's age to complete [...] 10:10 AM EDT) Creatinine, Urine 62.09 mg/dL [facility] Protein, Total, Random Urine <7 <12 mg/dL [facility] Protein/Creatin ine Ratio, Ur TNP <0.2 [facility] Comment:Unable to calculate urine protein creatinine ratio due tolow creatinine or protein result. 09/06/2024 10:1 0 AM EDT 09/06/2024 10:48 AM EDT us Generic External Data Provider LAB URINE ORDERAB LES Final Result Performing Organization Address [facility]/ZIP Co de Phone Number [facility] [address] [place] [address] [phone] * Immunofixation (NEMESIO), Urine (09/06/2024 10:10 AM EDT) NEMESIO Interpretation SEE NOTE [facility] Comment:Faint Free monoclona l kappa band present.The supplier of the testing reagents for this assayhas changed. Detection of small monoclonal proteins mayvary by test system.THIS TEST WAS PERFORMED AT:[facility] [place] [phone] NAPIER MD 09/06/2024 10:1 0 AM EDT 09/06/2024 10:48 AM EDT us Generic External Data Provider LAB URINE ORDERAB LES Final Result Performing Organization Address [facility]/ZIP Co de Phone Number [facility] [address] [place] [phone] * Urinalysis Complete (09/06/2024 10:10 AM EDT) Color Urine Yellow [facility] Appearance Urine Clear [facility] PH 6.0 5.0 - 9.0 [facility] Glucose Urine UA Negative Negative mg/dL [facility] Urine Blood Trace Negative [facility] Specific Gibbs - Urine 1.010 1.005 - 1.025 [facility] Urine Protein Negative Neg-Trace mg/dL [facility] Urine Ketones Negative Negative mg/dL [facility] Nitrite Urine Negative Negative [facility] Leukocyte Esterase Urine Negative Negative [facility] RBC Urine 0-2 0 - 2 /HPF [facility] Urine WBC 0-5 0 - 5 /HPF [facility] Urine Squamous Epithelial Cell 0-2 0 - 2 /HPF [facility] Urine Bacteria None Seen None Seen [facility] Hyaline Casts, Urine 3-5 0 - 2 /LPF [facility] 09/06/2024 10:1 0 AM EDT 09/06/2024 10:48 AM EDT us Generic External Data Provider LAB URINE ORDERAB LES Final Result [facility] [address] [place] [phone] * (ABNORMAL) Creatinine, Serum (09/06/2024 9:29 AM EDT) Creatinine, Serum 1.71(H) 0.5 - 1.4 mg/dL [facility] Estimated Glomerular Filt Rate 38 [facility] Comment:Chronic Kidney Disea se: Estimated GFR < 60 mL/min/[id number] Kidney Disease: Estimated GFR < 15 mL/min/1.73m2 09/06/2024 9:29 AM EDT 09/06/2024 9:29 AM EDT us Generic External Data Provider LAB BLOOD ORDERAB LES Final Result [facility] [address] [place], [place] [phone] * (ABNORMAL) CBC auto differential (09/06/2024 9:29 AM EDT) White Blood Count 7.1 4.8 - 10.8 X10*3/uL [facility] Red Blood Count 3.64(L) 4.60 - 5.80 X10*6/uL [facility] Hemoglobin 11.7(L) 14.0 - 18.0 g/dl [facility] Hematocrit 34.8(L) 42.0 - 52.0 % [facility] Mean Corpuscular Volume 95.6 80.0 - 98.0 fL [facility] Mean Corpuscular Hemoglobin 32.1 27.0 - 33.0 pg [facility] Mean Corpuscular HGB Conc 33.6 31.0 - 36.0 g/dl [facility] Red Cell Distribution Width 12.9 11.0 - 16.0 % [facility] Platelet Count 227 160 - 400 X10*3/uL [facility] Mean Platelet Volume 9.7 9.4 - 12.4 fL [facility] Neutrophils Percent Auto 60.0 45 - 73 % [facility] Imm Gran Pct Auto 0.3 0.0 - 0.4 % [facility] Lymphocytes Percent Auto 24.5 20 - 40 % [facility] Monocytes Percent Auto 11.7(H) 2 - 11 % [facility] Eosinophils Percent Auto 2.8 0 - 4 % [facility] Basophils Percent Auto 0.7 0 - 2 % [facility] NRBC Pct Auto 0.0 0.0 - 0.2 /100WBC [facility] Neutrophils Absolute Auto 4.2 2.0 - 8.3 x10*3/uL [facility] Imm Gran Abs Auto 0.02 0.00 - 0.03 X10*3/uL [facility] Lymphocytes Absolute Auto 1.7 1.2 - 4.9 X10*3/uL [facility] Monocytes Absolute Auto 0.8 0.1 - 1.2 X10*3/uL [facility] Eosinophils Absolute Auto 0.2 0.0 - 0.4 X10*3/uL [facility] Basophils Absolute Auto 0.1 0.0 - 0.2 X10*3/uL [facility] NRBC Abs Auto 0.000 0.0 - 0.012 X10*3/uL [facility] 09/06/2024 9:29 AM EDT 09/06/2024 9:29 AM EDT Generic External Data Provider LAB BLOOD ORDERAB LES Final Result Performing Organization Address [facility] Co de Phone Number [facility] [address] [place] [phone] * Immunofixation, Serum (09/06/2024 9:29 AM EDT) IMMUNOGLOBULIN G 1506 600 - 1540 mg/dL [facility] IMMUNOGLOBULIN A 310 70 - 320 mg/dL [facility] Immunoglobulin M 129 50 - 300 mg/dL [facility] Comment:THIS TEST WAS PERFOR MED AT:[facility] [place] [phone] NAPIER MD Immunofixation Result SEE NOTE [facility] Comment:IgG kappa monoclonal band present. 09/06/2024 9:29 AM EDT 09/06/2024 9:29 AM EDT us Generic External Data Provider LAB BLOOD ORDERAB LES Final Result Performing Organization Address [facility]/ZIP Co de Phone Number [facility] [address] [place] [phone] * (ABNORMAL) BUN (Blood Urea Nitrogen) (09/06/2024 9:29 AM EDT) Urea Nitrogen (BUN) 39(H) 9 - 16 mg/dL [facility] 09/06/2024 9:29 AM EDT 09/06/2024 9:29 AM EDT Generic External Data Provider LAB BLOOD ORDERAB LES Final Result Performing Organization Address [facility] de Phone Number [facility] [address] [place] [phone] * Calcium (09/06/2024 9:29 AM EDT) [facility] Calcium 9.7 8.4 - 10.2 mg/dL [facility] 09/06/2024 9:29 AM EDT 09/06/2024 9:29 AM EDT Generic External Data Provider LAB BLOOD ORDERAB LES Final Result Performing Organization Address [facility] Phone Number [facility] [address] [place] [phone] * (ABNORMAL) Electrolyte Panel (09/06/2024 9:29 AM EDT) [facility] Sodium 140 135 - 145 mmol/L [facility] Potassium 4.0 3.3 - 5.1 mmol/L [facility] Chloride 107 96 - 108 mmol/L [facility] Carbon Dioxide 26 22 - 29 mmol/L [facility] Anion Gap 11(L) 12 - 20 [facility] 09/06/2024 9:29 AM EDT 09/06/2024 9:29 AM EDT Generic External Data Provider LAB BLOOD ORDERAB LES Final Result Performing Organization Address [facility] de Phone Number [facility] [address] [place] [phone] * Hemoglobin A1c (08/06/2023 12:35 PM EST) Hemoglobin A1c 5.4 <6.0 % [facility] Comment:Hemoglobin A1C Refer ence Range Adults: 4.8 - 6.0 % Non diabetic: < 6.0 % Goal: < 7.0 %Additional Action Suggested: > 8.0 %Note: Hemoglobin A1c results are invalid for patients with abnormal amounts of HbF. Blood transfusions may impact the HbA1c concentration in the patient sample. Estimated Average Glucose 108 mg/dL [facility] Comment:eAG = Estimated ave rage glucose which is %A1C expressed asaverage glucose, using the formula of the I1S-WpjizdyJehdgav Glucose study (ADAG), Diabetes Care, Vol.31,#8,Jan. 2007 Blood Venous blood specimen / Unknown 08/06/2023 12:35 PM EST 08/06/2023 12:35 PM EST us Ml Bess MD LAB BLOOD ORDERABLES Final Res ult [facility] [address] [place] [phone] * LIPID PANEL, STANDARD (11/14/2020 8:07 AM EDT) Chol/HDLC Ratio 3.2 <5.0 (calc) [facility] Cholesterol, Total 139 <200 mg/dL [...] ?? Hernando NOLASCO et al. JOSEPHINE. 2013;310(19): 4499-7748 ?? (http://education.GoLive! Mobile/faq/HPJ252) Non-HDL Cholesterol 95 <130 mg/dL (calc) [facility] Comment: For patients with diabetes plus 1 major ASCVD risk ?? factor, treating to a non-HDL-C goal of <100 mg/dL ?? (LDL-C of <70 mg/dL) is considered a therapeutic ?? option. Triglycerides 68 <150 mg/dL [facility] 11/14/2020 8:07 AM EDT Shayy Bartonанна INSTITUTIONAL RESEARCH COORDINATOR LAB BLOOD ORDERABLES Final Result [facility] [address] from Last 3 Months or Most Recently Relevant to Health Maintenance [facility]O D-SNP) STEFFANIE BENITEZ [id number] Care Teams Livestock Counter Relationship Specialty Start Date End Date Ml Bess MD [address] [place] [phone] PCP - General Family Medicine 01/28/21
== END ==
LOC: HO.CARD 08:05
PROVIDERS: PCP General Practice; Visit Provider Nurse Practitioner Family
DX: I42.9 Cardiomyopathy, unspecified (principal); I48.20 Chronic atrial fibrillation, unspecified; R07.89 Other chest pain
CPT/HCPCS: 78452; 93017; A9500; J0280; J2785

== ENCOUNTER → 2024-10-24 08:09 | Outpatient (BNV) | payer OTHER, SELFPAY | PROVIDERS: PCP General Practice | DX: R07.9 Chest pain, unspecified (principal); I49.3 Ventricular premature depolarization | CPT/HCPCS: 78452; 93016; 93018 ==

== ENCOUNTER 2024-11-17 14:22 | Outpatient (REF) | payer OTHER, SELFPAY ==
--- OUTSIDE RECORDS SUMMARY | 2024-11-17 14:24 | XMS_ITS | Encounter Summary ---
Author Organization [employer] Address [address] [facility] 7[address] [place] [address] Care Team Providers Care Bit Sander Name Role Phone Ml Bess MD Primary Care Provider [phone] Encounter Details Date Type Department Care Team (Late st Contact Info) Description 04/26/2023 Telephone [facility] MEDICINE [address] [place], [place] [phone] Ml Bess MD [address] [place], [place] [phone] Social History Tobacco Use Types Packs/Day Years [...] on filedocumented in this encounter Care Teams Bit Sander Relationship Specialty Start Date End Date Ml Bess MD [address] [place] [address] PCP - General Family Medicine 01/28/21 documented as of this encounter
[2024-11-17 16:11] LABS: MANUAL DIFF FLAG NO
[2024-11-17 16:20] LABS: Basophils Percent Auto 0.8 % (0-2); Eosinophils Absolute Auto 0.1 X10*3/uL (0.0-0.4); Eosinophils Percent Auto 2.5 % (0-4); Hematocrit 31.8 % (42.0-52.0); Hemoglobin 10.5 g/dl (14.0-18.0); Imm Gran Abs Auto 0.01 X10*3/uL (0.00-0.03); Imm Gran Pct Auto 0.2 % (0.0-0.4); Lymphocytes Absolute Auto 1.3 X10*3/uL (1.2-4.9); Lymphocytes Percent Auto 24.3 % (20-40); Mean Corpuscular Hemoglobin 32.8 pg (27.0-33.0); Mean Corpuscular Volume 99.4 fL (80.0-98.0); Mean Platelet Volume 10.3 fL (9.4-12.4); Monocytes Absolute Auto 0.7 X10*3/uL (0.1-1.2); Monocytes Percent Auto 14.2 % (2-11); Platelet Count 213 X10*3/uL (160-400); Red Cell Distribution Width 13.7 % (11.0-16.0); White Blood Count 5.2 X10*3/uL (4.8-10.8)
[2024-11-17 16:23] LABS: Estimated Average Glucose 114 mg/dL; Hemoglobin A1c % 5.6 % (<6.0)
[2024-11-17 16:31] LABS: Alanine Aminotransferase 10 U/L (0-40); Albumin Level 4.1 g/dL (3.5-5.0); Alkaline Phosphatase 70 U/L (39-117); Anion Gap 10 (12-20); Aspartate Amino Transferase 16 U/L (5-37); Bilirubin Total 0.4 mg/dL (0.0-1.0); Blood Urea Nitrogen 34 mg/dL (9-16); Calcium 9.1 mg/dL (8.4-10.2); Carbon Dioxide 25 mmol/L (22-29); Chloride 109 mmol/L (96-108); Estimated Glomerular Filt Rate 43; Glucose Random 97 mg/dL (60-115); Potassium 4.3 mmol/L (3.3-5.1); Sodium 140 mmol/L (135-145)
== END 2024-11-17 14:23 | disposition home or self-care (01) ==
LOC: HO.HHCL 14:22
PROVIDERS: Visit Provider General Practice
DX: R41.0 Disorientation, unspecified (principal)
CPT/HCPCS: 36415; 80053; 83036; 85025

== ENCOUNTER 2024-11-20 08:13 | Outpatient (REF) | payer OTHER, SELFPAY ==
[2024-11-20 11:15] LABS: Appearance Urine Clear; Color Urine Yellow; Glucose Urine UA Negative (Negative); Leukocyte Esterase Urine Negative (Negative); Nitrite Urine Negative (Negative); PH 5.5 (5.0-9.0); UMIC TRIGGER UACC YES; Urine Blood Trace (Negative); Urine Ketones Negative (Negative); Urine Protein Negative (Neg-Trace)
[2024-11-20 11:18] LABS: Bacteria Urine None Seen (None Seen); Hyaline Casts Urine 0-2 /LPF (0-2); RBC Urine 0-2 /HPF (0-2); Squamous Epithelial Cell Urine 0-2 /HPF (0-2); WBC Urine 0-5 /HPF (0-5)
== END 2024-11-20 08:14 | disposition home or self-care (01) ==
LOC: HO.HHCL 08:13
PROVIDERS: Internal Medicine Nephrology; Visit Provider General Practice
DX: N18.30 Chronic kidney disease, stage 3 unspecified (principal); R41.0 Disorientation, unspecified
CPT/HCPCS: 81001

== ENCOUNTER 2024-12-15 13:48 | Outpatient (AMB) | payer OTHER, SELFPAY ==
--- OUTSIDE RECORDS SUMMARY | 2024-12-15 13:51 | XMS_ITS | Data Portability ---
Author Organization [employer] [facility] [employer] [facility] Address [address] [place] [address] Care Team Providers Care Tank Assembler Name Role Phone [facility] Referring Provider [facility] Referring Provider Assessment Encounter [...] tablets in a dose pack 2022 023 [facility] #[id number], [address] [facility], [place], [address], 17:15:59 Patient TargetsNo targets recorded. Patient InstructionsNo [...] lisinopril 20 mg tablet TOME AGUEDA TABLETA TODOS LOS D active Not Available Not Available [...] iron) tablet,delay ed release TOME AGUEDA TABLETA TODOS LOS PÉREZ WITH ORANGE JUICE active Not Available Not Available No t Available fluticasone propionate 50 mcg/actuatio n nasal spray,suspen bravo SPRAY 2 SPRAYS INTO EACH NOSTRIL TODOS LOS D active Not Available Not Available No t Available hydrochlorot hiazide 12.5 mg tablet TOME AGUEDA TABLETA TODOS LOS D active Not Available Not Available [...] blood by Pulse oximetry Body temperature Systolic And Diastolic Provider Name and Address Organization Details Last Updated DateTime 3 54168.1 28 g 82 /min 16 /min 170.18 cm 100 % 100 % 97.8 [degF] 130/71 mm[Hg] Not Available [employer] - production 3 16:50:06 Social History None recorded. Functional Status None recorded. Mental Status None recorded. Family History Nothing Reported. Medical History No medical history recorded. Past Encounters Encounter ID Performer Location Encounter Start Date Encounter Closed Date Diagnosis/Indication Diagnosis SNOMED-CT Code Diagnosis ICD10 Code Diagnosis Note [id number] Ronda Crisostomo MD [address] [phone] 05/14/2023 16:49:55 05/17/2023 16:47:56 COVID-19 589535430 U07.1 Health Concerns Section Related Observation LastModified by Organization [employer] LastModified Time None Recorded Concern Status LastModified by Organization Details LastModified Time None Recorded Advance Directives Directive None Recorded Payers Insurance Date Sequence Insurance Name Policy Number Policy Humphrey Covered Member ID Humphrey Member ID Guarantor Name 08/10/2023 1 [facility] - DOS ON OR AFTER 2022 - DUAL ELIGIBLE - USP OPTIONS AND ONE CARE (MEDICARE REPLACEMENT/AD VANTAGE - HMO) Ras Pavon [id number] Ras Pavon Notes Date Note Type Note [...] .................. .................. .................. .................. .................. .................. ............... Test Driver Note From Toñito Leigh: [facility] 3 arrives to find 82-year-old male [...] AC. POC blood work drawn and analyzed. [facility] consulted, orders received for 500 mL of normal saline, reassessment and repeat, 500 if needed. Orders fulfilled, 1 L of normal saline given IV. IV discontinued. Prescription sent to pharmacy. [facility] 3 clear . .................. .................. .................. .................. .................. .................. .................. ............... Disposition: Fulfilled Ronda Crisostomo MD [address] [facility],[address], [place], [address], [employer] 05/14/2023 17:30:41
--- OUTSIDE RECORDS SUMMARY | 2024-12-15 13:51 | XMS_ITS | Encounter Summary ---
Author Organization [employer] Address [address] [facility] 7[address] [place] [address] Care Team Providers Care Vice President Commercial Bank Name Role Phone Ml Bess MD Primary Care Provider [phone] Encounter Details Date Type Department Care Team (Latest Contact Info) Description 12/13/2024 Travel Social History Tobacco Use Types Packs/Day Years Used Date Smoking Tobacco: Never Smokeless Tobacco: Never Alcohol Use Standard Drinks/Week Comments Never 0 (1 standard drink = 0.6 oz pur e alcohol) Depression Answer Date Recorded Patient Health Questionnaire-9 Score 7 11/17/2024 Patient Health Questionnaire-9 Score 7 11/17/2024 Last PHQ-9: Questionnaire Data Not on file 0 11/17/2024 Housing Stability Answer Date Recorded What is your housing situation today? I have suha crowell 12/13/[address] you li ve. Do you have problems with any of the following? None of the above 12/13/2024 Food Insecurity Answer Date Recorded Within the past 12 months, y ou worried that your food would run out before you got money to buy more: Never True 12/13/2024 Within the past 12 months,th e food you bought just didn't last and you didn't have enough money to get more: Never True 02/2025 Transportation Answer Date Recorded In the past 12 months, has l ack of transportation kept you from medical appts, meetings, work or from getting things needed for daily living? No 12/13/2024 Utilities Answer Date Recorded In the past 12 months, has t he electric, gas, oil or water company threatened to shut off services in your home? No 12/13/2024 Depression Answer Date Recorded Patient Health Questionnaire-2 Score 1 11/17/2024 Internet Access Answer Date Recorded Internet Access Q1 Yes 12/13/2024 Internet Access Q2 Not on file 12/13/2024 Sex and Gender Information Value Date Recorded Sex Assigned at Male 04/06/2022 10:16 AM EDT Legal Sex Male 10:16 AM EDT Gender Identity Male 04/06/2022 10:16 AM EDT Sexual Orientation Straight 04/06/2022 10 :16 AM EDT documented as of this encounter Plan of Treatment Upcoming Encounters Date Type Department Care Team (Late st Contact Info) Description 02/16/2025 9:45 AM EDT Office Visit [facility] [address] [place] [address] Ml Bess MD [address] [place] [address] documented as of this encounter Visit Diagnoses Not on filedocumented in this encounter Additional Health Concerns Assessment Noted Time PHQ-9 Depression Total Score: 7 11/18/19 25 2:10 PM EDT documented as of this encounter Care Teams Vice President Commercial Bank Relationship Specialty Start Date End Date Ml Bess MD [address] [place], [place] [phone] PCP - General Family Medicine 01/28/21 documented as of this encounter
--- OUTSIDE RECORDS SUMMARY | 2024-12-15 13:51 | XMS_ITS | Encounter Summary ---
Author Organization [facility], Address [address] [place] [address] Phone Care Team Providers Care Solid Waste Truck Driver Name Role Phone Ml Bess MD Primary Care Provider [phone] Encounter Details Date Type Department Care Team (Late st Contact Info) Description 04/28/2022 Documentation Only [facility], [address] [place] [phone] Heather Isaacs PA [address] [place] [phone] Social History Tobacco Use Types Packs/Day Years [...] on filedocumented in this encounter Care Teams Solid Waste Truck Driver Relationship Specialty Start Date End Date Ml Bess MD [address] [place] [address] PCP - General Mastic Worker 05/04/23 documented as of this encounter
--- NOTE | 2024-12-15 14:08 | HO.NEPHOV ---
Vital Signs 12/15/24 14:10 12/15/24 14:30 Height 5 ft 7 in Weight 162 lb 8 oz BMI 25.4 BP 100/60 130/60 Blood Pressure Location Rt brachial Rt brachial Position Sitting Pulse 53 Pulse Source Pulse Oximeter Pulse Oximetry (%) 98 Oxygen Delivery Method Room Air Intake Visit Reasons: 3 MO FU-Conf Car Repairer Apprentice Required: Yes Car Repairer Apprentice Language: Pupil Personnel Services Director Services: Car Repairer Apprentice Offered & Declined ([facility] surgical services tech services refused pt accompanied by behzad daughter) Car Repairer Apprentice Name: Hilary Accompanied by: Behzad Child Allergies shrimp Allergy (Intermediate, Verified 12/15/24 14:08) SWELLING HPI Comments Details: Ras was seen for F/U of CKD and hypertension. He was accompanied by Corina, his behzad daughter during this visit. He is 83 years of age who has long standing H/O hypertension. He is on ACEI which he is tolerating very well. He is not a diabetic. He is not known to have significant proteinuria. He has no H/O CAD, CVA, CHF, carotid stenosis, PAD or known H/O PANKAJ. He denied hypercalcemia, weight loss, hematuria, H/O malignancy,hearing deafness, recurrent UTI, new bone or back pain, sinusitis, photosensitivity, skin rashes, edema, nausea, vomiting, diarrhea, SOB, PND or orthopnea. Corina brings up ongoing weakness, she says over the last few weeks or so- concerned it may be his anemia, which has been stable/chronic for a number of years now. He does not take OTC medications or excess NSAID's. He feels well and did not have any specific complaint at the time of this office visit. His serum creatinine is stable, currently 1.55. [facility] Medical History Chronic kidney disease, stage 3 Atrial flutter Depression Pulmonary nodules GERD (gastroesophageal reflux disease) Other and unspecified hyperlipidemia Vitamin D deficiency BPH (benign prostatic hyperplasia) Essential hypertension Pre-diabetes Surgical History History of umbilical hernia repair Family History Father No problems noted. Mother No problems noted. 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 Review of Systems Const All systems reviewed & are unremarkable except as noted in HPI and below Physical Exam Vital Signs: Last Vital Signs Pulse 53 12/15/24 14:10 BP 130/60 12/15/24 14:30 Pulse Ox 98 12/15/24 14:10 Oxygen Delivery Method Room Air 12/15/24 14:10 BMI result Body Mass Index 25.4 Const General: comfortable and no acute distress Orientation/consciousness: patient oriented x3 HEENT Head: Yes normocephalic Mouth: Normal oral and palatal mucosa present Eyes EOM: EOMs intact bilaterally Neck Neck: Yes supple Resp Auscultation: clear to auscultation bilaterally Cardio Jugular venous distension: no JVD Rate: regular rate GI Palpation (GI): Soft to palpation Auscultation: normal bowel sounds General: Yes no CVA tenderness Back/Spine/Pelvis Back: no CVA tenderness Skin General skin exam: no rashes or lesions noted Neuro General: patient oriented x3 and moves all extremities Extrem General: Yes no pedal edema Results Reviewed Nephrology Results: Hgb, (14.0-18.0) 10.5 g/dl L 11/17/24 WBC, (4.8-10.8) 5.2 X10*3/uL 11/17/24 Plt Count, (160-400) 213 X10*3/uL 11/17/24 Sodium, (135-145) 140 mmol/L 11/17/24 Potassium, (3.3-5.1) 4.3 mmol/L 11/17/24 Chloride, (96-108) 109 mmol/L H 11/17/24 Carbon Dioxide, (22-29) 25 mmol/L 11/17/24 BUN, (9-16) 34 mg/dL H 11/17/24 Creatinine, (0.5-1.4) 1.55 mg/dL H 11/17/24 Calcium, (8.4-10.2) 9.1 mg/dL Δ 11/17/24 Urine Protein, (Neg-Trace) Negative mg/dL 11/20/24 Urine Creatinine 62.09 mg/dL 09/06/24 Protein/Creatinin Ratio TNP 09/06/24 Assessment & Plan Assessment & Plan (1) Chronic kidney disease, stage 3: Code(s): N18.30 - Chronic kidney disease, stage 3 unspecified Category: Medical Qualifiers: Chronic kidney disease stage 3 subtype: stage 3a (GFR 45-59) Qualified Code(s): N18.31 - Chronic kidney disease, stage 3a (2) Anemia, chronic disease: Code(s): D63.8 - Anemia in other chronic diseases classified elsewhere Category: Medical Plan Ras has CKD 3 most likely due to vascular disease, hypertension and age related loss of renal function. His creatinine remains stable at baseline. His UO is good and is not known to have prostatic malignancy. He is on ACEI which he is tolerating well. He avoids NSAID's and maintain good hydration. He will be a candidate for low dose SGLT2i. Given family concern about anemia, we will re-check today, in addition to iron studies. Answered all questions. F/U given Orders: Orders Ferritin Today D63.8 - Anemia in other chronic diseases classified elsewhere, R53.1 - Weakness Basic Metabolic Panel 3 Months I10 - Essential (primary) hypertension, N18.30 - Chronic kidney disease, stage 3 unspecified IRON PROFILE Today D63.8 - Anemia in other chronic diseases classified elsewhere, R53.1 - Weakness Transferrin Today D63.8 - Anemia in other chronic diseases classified elsewhere, N18.31 - Chronic kidney disease, stage 3a, R53.1 - Weakness Complete Blood Count Auto Diff Today D63.8 - Anemia in other chronic diseases classified elsewhere, R53.1 - Weakness UA w Microscopic 3 Months I10 - Essential (primary) hypertension, N18.31 - Chronic kidney disease, stage 3a Coding Level of Care Code Est Pt Level 4 (45927) Diagnoses Stage 3a chronic kidney disease N18.31 Chronic kidney disease stage 3 subtype: stage 3a (GFR 45-59) Anemia, chronic disease D63.8
[2024-12-15 14:10] VITALS: BP 100/60; PULSE 53; O2SAT 98; BMI 25.4
[2024-12-15 14:30] VITALS: BP 130/60
== END 2024-12-15 14:30 | disposition home or self-care (01) ==
LOC: HO.HKA 13:48
PROVIDERS: PCP General Practice; Visit Provider Nurse Practitioner Family
DX: N18.31 Chronic kidney disease, stage 3a (principal); D63.8 Anemia in other chronic diseases classified elsewhere
CPT/HCPCS: 99214

== ENCOUNTER → 2024-12-15 13:48 | Outpatient (BNVA) | payer OTHER, SELFPAY | PROVIDERS: PCP General Practice; Visit Provider Internal Medicine Nephrology | DX: N18.31 Chronic kidney disease, stage 3a (principal); D63.8 Anemia in other chronic diseases classified elsewhere; R53.1 Weakness | CPT/HCPCS: 99212 ==

== ENCOUNTER 2024-12-18 08:23 | Outpatient (REF) | payer OTHER, SELFPAY ==
--- OUTSIDE RECORDS SUMMARY | 2024-12-18 08:28 | XMS_ITS | Data Portability ---
Author Organization [employer] [facility], [place] [employer] [facility] Address [address] [place] [address] Care Team Providers Care Optimization Consultant Name Role Phone [facility] Referring Provider [facility] Referring Provider Assessment Encounter Date [...] tablets in a dose pack 2022 023 [id number], [address] [facility], [place], [address], 17:15:59 Patient TargetsNo targets recorded. Patient InstructionsNo [...] Address Organization Details Last Updated DateTime 3 46544.1 28 g 82 /min 16 /min 170.18 cm 100 % 100 % 97.8 [degF] 130/71 mm[Hg] Not Available [employer] 3 16:50:06 Social History None recorded. Functional Status None recorded. Mental Status None recorded. Family History Nothing Reported. Medical History No medical history recorded. Past Encounters Encounter ID Performer Location Encounter Start Date Encounter Closed Date Diagnosis/Indication Diagnosis SNOMED-CT Code Diagnosis ICD10 Code Diagnosis Note [id number] Ronda Crisostomo MD [address] [address] 05/14/2023 16:49:55 05/17/2023 16:47:56 COVID-19 328459951 U07.1 Health Concerns Section Related Observation LastModified by Organization [employer]as [employer] LastModified Time None Recorded Concern Status LastModified by Organization Details LastModified Time None Recorded Advance Directives Directive None Recorded Payers Insurance Date Sequence Insurance Name Policy Number Policy Humphrey Covered Member ID Humphrey Member ID Guarantor Name 08/10/2023 1 [facility] - DOS ON OR AFTER 2022 - DUAL ELIGIBLE - RESIDENTIAL OPTIONS AND ONE CARE (MEDICARE REPLACEMENT/AD VANTAGE - HMO) Ras Pavon [id number] Ras Pavon Notes Date Note Type Note [...] .................. .................. .................. .................. .................. .................. ............... Flap Presser Note From Toñito Leigh: [facility] 3 arrives to find 82-year-old male seated [...] AC. POC blood work drawn and analyzed. [facility] consulted, orders received for 500 mL of normal saline, reassessment and repeat, 500 if needed. Orders fulfilled, 1 L of normal saline given IV. IV discontinued. Prescription sent to pharmacy. [facility] 3 clear . .................. .................. .................. .................. .................. .................. .................. ............... Disposition: Fulfilled Ronda Crisostomo MD [address] [facility],[address], [place], [address], [employer] [place] 05/14/2023 17:30:41
--- OUTSIDE RECORDS SUMMARY | 2024-12-18 08:28 | XMS_ITS | Encounter Summary ---
Author Organization [facility], Address [address] [place] [address] Phone Care Team Providers Care Termite Helper Name Role Phone Ml Bess MD Primary Care Provider [phone] Encounter Details Date Type Department Care Team (Late st Contact Info) Description 04/28/2022 Documentation Only [facility], [address] [place] [phone] Heather Isaacs PA [address] [place] [phone] Social History Tobacco Use Types Packs/Day Years [...] on filedocumented in this encounter Care Teams Termite Helper Relationship Specialty Start Date End Date Ml Bess MD [address] [place] [address] PCP - General Maintenance Mechanic 2Nd Shift 05/04/23 documented as of this encounter
--- OUTSIDE RECORDS SUMMARY | 2024-12-18 08:28 | XMS_ITS | Encounter Summary ---
Author Organization [employer] Address [address] [facility] [address] [place] [address] Care Team Providers Care Pocket Marker Name Role Phone Ml Bess MD Primary Care Provider [phone] Encounter Details Date Type Department Care Team [...] Description 02/16/2025 9:45 AM EDT Office Visit [facility] [address] [place] [address] Ml Bess MD [address] [place] [address] documented as of this encounter Visit Diagnoses Not on filedocumented in this encounter Additional Health Concerns Assessment Noted Time PHQ-9 Depression Total Score: 7 11/18/19 25 2:10 PM EDT documented as of this encounter Care Teams Pocket Marker Relationship Specialty Start Date End Date Ml Bess MD [address] [place], [place] [id number] PCP - General Family Medicine 01/28/21 documented as of this encounter
[2024-12-18 08:39] LABS: MANUAL DIFF FLAG NO
[2024-12-18 09:10] LABS: Hematocrit 32.4 % (42.0-52.0); Hemoglobin 11.0 g/dl (14.0-18.0); Imm Gran Abs Auto 0.02 X10*3/uL (0.00-0.03); Imm Gran Pct Auto 0.3 % (0.0-0.4); Lymphocytes Absolute Auto 1.6 X10*3/uL (1.2-4.9); Mean Corpuscular HGB Conc 34.0 g/dl (31.0-36.0); Mean Corpuscular Hemoglobin 32.9 pg (27.0-33.0); Mean Corpuscular Volume 97.0 fL (80.0-98.0); NRBC Abs Auto 0.000 X10*3/uL (0.0-0.012); NRBC Pct Auto 0.0 /100WBC (0.0-0.2); Platelet Count 243 X10*3/uL (160-400); Red Blood Count 3.34 X10*6/uL (4.60-5.80); White Blood Count 6.5 X10*3/uL (4.8-10.8)
[2024-12-18 09:34] LABS: Anion Gap 10 (12-20); Blood Urea Nitrogen 44 mg/dL (9-16); Calcium 9.4 mg/dL (8.4-10.2); Carbon Dioxide 26 mmol/L (22-29); Chloride 108 mmol/L (96-108); Estimated Glomerular Filt Rate 36; Potassium 4.2 mmol/L (3.3-5.1); Sodium 140 mmol/L (135-145)
[2024-12-18 09:41] LABS: Iron 65 mcg/dL (45-160); Percent Iron Saturation 31 % (15-50); Total Iron Binding Capacity 208 mcg/dL (228-428); Unsaturated Iron Binding 143 ug/dL
[2024-12-18 10:24] LABS: Ferritin 169 ng/mL (20-250)
[2024-12-19 18:28] LABS: Transferrin 203 mg/dL (188-341)
== END 2024-12-18 08:24 | disposition home or self-care (01) ==
LOC: HO.LAB 08:23
PROVIDERS: General Practice; Nurse Practitioner Family; Visit Provider Internal Medicine Nephrology
DX: N18.31 Chronic kidney disease, stage 3a (principal); D63.1 Anemia in chronic kidney disease; R53.1 Weakness
CPT/HCPCS: 36415; 80051; 82310; 82565; 82728; 83540; 84466; 84520; 85025

== ENCOUNTER 2024-12-21 09:03 | Outpatient (AMB) | payer OTHER, SELFPAY ==
[2024-12-21 09:06] VITALS: BP 130/52; PULSE 36; BMI 25.5
--- NOTE | 2024-12-21 09:06 | MHC.OFFVIS ---
Vital Signs 12/21/24 09:06 Height 5 ft 7 in Weight 162 lb 11.218 oz BMI 25.5 BP 130/52 L Blood Pressure Location Lt brachial Position Sitting Pulse 36 L Pulse Source Monitor Intake Visit Reasons: 6m follow up Manufacturing Plant Manager Required: No Net Applications Developer: Net Applications Developer Present Allergies shrimp Allergy (Intermediate, Verified 12/21/24 09:08) SWELLING Medication List - Last Reconciled 12/21/24 by Dania Quinonez NP-C apixaban (Eliquis) 2.5 mg PO BID cetirizine 10 mg PO DAILY PRN epinephrine 0.3 mg IM ONCE fluticasone propionate 50 mcg/actuation 1 inh inhalation BID furosemide 20 mg PO BID lisinopril 20 mg PO DAILY omeprazole 20 mg PO QAM PRN pravastatin 40 mg PO BEDTIME HPI HPI 6m follow up: Details: Ras is an 83 yo male with PMH of HTN, preDM, CKD, atrial fibrillation/ flutter with slow ventricular response, prior reports of chest discomfort who recently had a echocardiogram, Holter monitor and stress test and now presents for follow-up. Today he states he has been feeling well with no concerning symptoms. He reports good activity tolerance and uses a stationary bike for 1 hour at a time twice daily. He denies fatigue, lightheadedness, presyncope, syncope. No shortness of breath, PND, orthopnea or edema. No chest discomfort at rest or with activity. No bleeding issues reported. APPLE PICKING SUPERVISOR is present and assisting with Yakut interpretation. [facility] Medical History Chronic kidney disease, stage 3 Atrial flutter Depression Pulmonary nodules GERD (gastroesophageal reflux disease) Other and unspecified hyperlipidemia Vitamin D deficiency BPH (benign prostatic hyperplasia) Essential hypertension Pre-diabetes Surgical History History of umbilical hernia repair Family History Father No problems noted. Mother No problems noted. 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 Review of Systems Const All systems reviewed & are unremarkable except as noted in HPI and below Denies fatigue, Denies lethargy and Denies weakness ENT Denies dizziness Card Denies chest pain, Denies chest pain at rest, Denies chest pain with activity, Denies rapid heart rate, Denies pedal edema, Denies edema, Denies leg edema, Denies lightheadedness, Denies palpitations, Denies dyspnea, Denies dyspnea on exertion and Denies orthopnea Resp Denies cough, Denies dyspnea and Denies dyspnea on exertion GI Denies hematochezia and Denies change in stool character Musc Denies abnormal gait, Denies limited range of motion, Denies muscle cramps, Denies muscle weakness, Denies numbness, Denies radiating pain into limb, Denies stiffness and Denies tingling Neuro Denies abnormal gait, Denies dizziness, Denies numbness, Denies tingling and Denies weakness Endo Denies fatigue and Denies palpitations Physical Exam Const General: cooperative, healthy appearing, comfortable and no acute distress Orientation/consciousness: patient oriented x3 Neck Neck: Yes normal visual inspection and Yes no JVD Resp Effort & Inspection: normal respiratory effort Auscultation: clear to auscultation bilaterally, no crackles, no rales, no rhonchi and no wheezes Cardio Jugular venous distension: no JVD Rate: bradycardic Rhythm: abnormal rhythm Heart sounds: S1 normal heart sound present, S2 normal heart sound present, no murmurs and no rubs Neuro General: patient oriented x3 Extrem General: Yes normal to inspection and No no pedal edema Psych Appearance: grossly normal Mental Status: mental status grossly normal Speech and movement: Normal speech and movement present Office Procedures EKG Details: Today, read by me, Atrial fibrillation, slow ventricular response, rate 36, Qtc 358ms, asymptomatic [id number], Complete Results Reviewed Results Reviewed: 10/24/24 NM/NM cardiolite stress test Impression: 1. Myocardial perfusion imaging study shows no clear evidence of ischemia. Fixed defect in the distal anteroseptal and inferolateral wall. Possibly artifactual. Less likely nontransmural infarct. 2. Gated LVEF is 64% during stress and 61% during rest. 3. Transient ischemic dilatation not present. Echo 07/14/24 Conclusions: - Normal left ventricular cavity size. There is normal left ventricular wall thickness. The left ventricular systolic function is borderline reduced. The visually estimated ejection fraction is between 45-50%. - Diastolic function is indeterminate on the basis of available data. - Mildly increased right ventricular cavity size. There is mildly decreased right ventricular systolic function. - The left atrium is mildly dilated. - The right atrium is severely dilated. - Significantly elevated right atrial pressure. Mild pulmonary hypertension is present. Holter 07/14/24 Total monitoring time 3 days. Underlying rhythm is atrial fibrillation. Average ventricular rate 59/Min. Rare ventricular ectopy with a burden of 0.19%. Nighttime pauses noted but do not reach significance. Longest 2.8 seconds. No patient markers or diary events. Assessment & Plan Assessment & Plan (1) Atrial fibrillation with slow ventricular response: Code(s): I48.91 - Unspecified atrial fibrillation Category: Medical Plan: History of chronic atrial fibrillation with slow ventricular response, off all rate slowing agents. Last Holter 07/14/2024 shows AFib with average heart rate 59, no significant pauses. Echocardiogram 07/14/2024 showed EF 45-50%, right atrium severely dilated, left atrium mildly dilated, mild pulmonary hypertension. EKG done today showing atrial fibrillation with slow ventricular response, rate 36, asymptomatic. Ambulated him in the klein with sat monitor and heart rate easily justin to 63. He uses an exercise bike 1 hour twice daily and reports good tolerance. No indication for pacemaker at this time. Will check Holter monitor again to assess average heart rate and for significant pauses. Future possibility of pacemaker reviewed with him. Cardiology follow-up 4 months, sooner if needed. (2) Chest discomfort: Code(s): R07.89 - Other chest pain Category: Medical Plan: Prior reports of chest discomfort at rest and with activity, currently resolved. Patient has cardiac risk factors of age, hypertension, prediabetes and chronic kidney disease. His echo did show EF 45-50%, no regional wall motion abnormalities. He underwent a pharmacological nuclear stress test on 10/24/2024 showing no ischemia, there is a fixed defect which could be artifact. He likely has some degree of CAD. Continue pravastatin with ideal LDL goal less than 70. He is not on aspirin as he is on Eliquis. (3) Chronic atrial fibrillation: Code(s): I48.20 - Chronic atrial fibrillation, unspecified Category: Medical Plan: As above (4) Essential hypertension: Code(s): I10 - Essential (primary) hypertension Category: Medical Plan: Blood pressure goal less than 130/80. Well controlled at present. Continue furosemide, lisinopril. Follows with PCP (5) Congestive heart failure (CHF): Code(s): I50.9 - Heart failure, unspecified Category: Medical Plan: No clinical signs of HF on exam. Denies sob. Reports good acivity tolerance. s/s HF reviewed with him. (6) Anticoagulated: Code(s): Z79.01 - [facility] (current) use of anticoagulants Category: Medical Plan: On Eliquis. Tolerating well. (7) Cardiomyopathy: Code(s): I42.9 - Cardiomyopathy, unspecified Category: Medical Plan: Mild cardiomyopathy noted on last echocardiogram. No signs of heart failure on exam. Continue lisinopril and low-dose Lasix. Avoid use of rate slowing medications due to bradycardia. Plan I discussed with the patient the importance of monitoring his heart rate due to bradycardia and the potential need for a pacemaker if symptoms develop. We reviewed the results of his recent stress test and ultrasound, noting adequate coronary perfusion but slight heart muscle weakness. I advised maintaining his exercise routine and explained the use of a heart monitor to check for any irregularities. Orders: Orders ECG 3 day holter monitor Today I48.91 - Unspecified atrial fibrillation Patient Instructions: - Continue regular exercise, including stationary biking. - Monitor for symptoms like lightheadedness or unsteadiness. - Follow up with heart monitoring as advised. Patient was informed and verbally consented to the use of an ambient scribe for clinic note documentation during this visit. Visit time spent on chart review, interview, assessment, orders, documentation. Coding Level of Care Code Est Pt Level 4 (17130) Complex EM visit Add On G2211 Diagnoses Atrial fibrillation with slow ventricular response I48.91 Chest discomfort R07.89 Chronic atrial fibrillation I48.20 Essential hypertension I10 Congestive heart failure (CHF) I50.9 Anticoagulated Z79.01 Cardiomyopathy I42.9 CPT Codes EKG - CPT: 52699-[id number], Complete ([id number]) Time Spent (min) 28
--- OUTSIDE RECORDS SUMMARY | 2024-12-21 09:25 | XMS_ITS | Encounter Summary ---
Author Organization [facility], Address [address] [place] [address] Phone Care Team Providers Care International Specialist Name Role Phone Ml Bess MD Primary Care Provider [phone] Encounter Details Date Type Department Care Team (Late st Contact Info) Description 04/28/2022 Documentation Only [facility], [address] [place] [phone] Heather Isaacs PA [address] [place] [phone] Social History Tobacco Use Types Packs/Day Years [...] on filedocumented in this encounter Care Teams International Specialist Relationship Specialty Start Date End Date Ml Bess MD [address] [place] [address] PCP - General Roustabout Crew Pusher 05/04/23 documented as of this encounter
== END 2024-12-21 09:34 | disposition home or self-care (01) ==
LOC: HO.HCS 09:04
PROVIDERS: PCP General Practice; Visit Provider Nurse Practitioner Family
DX: I48.91 Unspecified atrial fibrillation (principal); R07.89 Other chest pain; I48.20 Chronic atrial fibrillation, unspecified; I10 Essential (primary) hypertension; I50.9 Heart failure, unspecified; Z79.01 Long term (current) use of anticoagulants; I42.9 Cardiomyopathy, unspecified
CPT/HCPCS: 93010; 99214; G2211

== ENCOUNTER → 2024-12-21 09:03 | Outpatient (BNVA) | payer OTHER, SELFPAY | PROVIDERS: PCP General Practice; Visit Provider Nurse Practitioner Family | DX: R07.89 Other chest pain (principal); I48.20 Chronic atrial fibrillation, unspecified; I48.91 Unspecified atrial fibrillation; I11.0 Hypertensive heart disease with heart failure; I50.9 Heart failure, unspecified; I42.9 Cardiomyopathy, unspecified; Z79.01 Long term (current) use of anticoagulants; Z79.899 Other long term (current) drug therapy; R94.31 Abnormal electrocardiogram [ECG] [EKG] | CPT/HCPCS: 93005; 99212 ==

== ENCOUNTER → 2025-01-22 09:25 | Outpatient (REF) | payer OTHER, SELFPAY ==
--- NOTE | 2025-01-22 09:28 | HM_ITS ---
* Total monitoring time 3 days. * Underlying rhythm is atrial fibrillation with an average ventricular rate of 53/Min. * Rare ventricular ectopy. * Pauses noted, longest 3.6 seconds during sleep hours. Does not reach significance. * No patient markers or diary events. MTDD
--- OUTSIDE RECORDS SUMMARY | 2025-01-22 09:57 | XMS_ITS | Encounter Summary ---
Author Organization [employer] Address [address] [facility] [address] [place] [address] Care Team Providers Care Pipe Coremaker Name Role Phone Ml Bess MD Primary Care Provider [phone] Encounter Details Date Type Department Care Team (Late st Contact Info) Description 04/26/2023 Telephone [facility] [address] [place], [place] [phone] Ml Bess MD [address] [place], [place] [phone] Social History Tobacco Use Types Packs/Day Years [...] Description 02/16/2025 9:45 AM EDT Office Visit [facility] [address] [place] [address] Ml Bess MD [address] [place] [address] documented as of this encounter Visit Diagnoses Not on filedocumented in this encounter Care Teams Pipe Coremaker Relationship Specialty Start Date End Date Ml Bess MD [address] [place] [address] PCP - General Family Medicine 01/28/21 documented as of this encounter
--- OUTSIDE RECORDS SUMMARY | 2025-01-22 09:57 | XMS_ITS | Encounter Summary ---
Author Organization [facility], Address [address] [place] [address] Phone Care Team Providers Care Joiner Apprentice Name Role Phone Ml Bess MD Primary Care Provider [phone] Encounter Details Date Type Department Care Team (Late st Contact Info) Description 04/28/2022 Documentation Only [facility], [address] [place] [phone] Heather Isaacs PA [address] [place] [phone] Social History Tobacco Use Types Packs/Day Years [...] on filedocumented in this encounter Care Teams Joiner Apprentice Relationship Specialty Start Date End Date Ml Bess MD [address] [place] [address] PCP - General Carbon Setter 05/04/23 documented as of this encounter
== END ==
LOC: HO.CARD 09:25
PROVIDERS: PCP General Practice; Visit Provider Nurse Practitioner Family
DX: I48.91 Unspecified atrial fibrillation (principal)
CPT/HCPCS: 93242

== ENCOUNTER → 2025-01-22 09:28 | Outpatient (BNV) | payer OTHER, SELFPAY | PROVIDERS: PCP General Practice; Visit Provider Internal Medicine | DX: I48.91 Unspecified atrial fibrillation (principal); I49.3 Ventricular premature depolarization | CPT/HCPCS: 93244 ==